=== PATIENT | male | born 1970 | race Caucasian/White ===

== ENCOUNTER 2019-10-15 10:33 | Outpatient (CLI) | payer MEDICAID, SELFPAY ==
--- NOTE | ~2019-10-15 | MR_ITS ---
EXAMINATION: MR knee LT wo con DATE: 10/15/2019 12:09 INDICATION: Left knee pain and swelling. TECHNIQUE: Magnetic resonance imaging (MRI) of the left knee was performed without intravenous contra st. Sequences included axial PD-weighted FS FSE, coronal PD-weighted FSE and PD-weighted FS FSE, sagi ttal PD-weighted FSE, and sagittal T2-weighted FS FSE. COMPARISON: Left knee radiographs 03/29/2019 FINDINGS: Medial compartment: There is a radial tear of posterior horn of medial meniscus. There is partial-thickness cartilage los s of tibial condyle, deep at the anterior articular surface. There are areas of full-thickness cartil age loss of femoral condyle involving the central, medial, lateral, and posterior articular surface w ith mild subchondral edema-like marrow signal intensity. Osteophytes are noted. Lateral compartment: The lateral meniscus is normal. The lateral compartment cartilage is normal. Osteophytes are noted. Patellofemoral compartment: There is deep partial thickness cartilage loss of patellar median ridge and lateral facet. There is f ull-thickness cartilage loss of patellar medial facet with mild subchondral edema-like marrow signal intensity. The trochlear cartilage is normal. Ligaments and tendons: Anterior and posterior cruciate ligaments are normal. Medial collateral ligament and lateral collater al ligament complex are intact. The patellar tendon is normal. Fluid: There is a small knee joint effusion. There is mild prepatellar and superficial infrapatellar bursiti s. There is subcutaneous edema about the knee. IMPRESSION: 1. Severe chondrosis of medial and patellofemoral compartments. 2. Tear of medial meniscus. 3. Small knee joint effusion. Reviewed, dictated and finalized at location A.
== END 2019-10-15 10:34 | disposition home or self-care (01) ==
PROVIDERS: PCP Emergency Medicine; Visit Provider Emergency Medicine
DX: M79.89 Other specified soft tissue disorders (principal); M25.562 Pain in left knee; M22.2X2 Patellofemoral disorders, left knee; S83.242A Other tear of medial meniscus, current injury, left knee, initial encounter; M25.462 Effusion, left knee
CPT/HCPCS: 73721

== ENCOUNTER 2021-12-24 14:37 | Emergency (ER) | payer OTHER, SELFPAY ==
[2021-12-24 14:44] VITALS: BP 144/96; PULSE 82; RESP 16; TEMP 35.9; O2SAT 98
--- NOTE | 2021-12-24 14:45 | ED.EXTPRO ---
HPI - Extremity Problem General Chief complaint: Extremity Problem,Nontraumatic Stated complaint: diabetic edema right leg Time Seen by Provider: 12/24/21 14:57 Source: patient and RN notes reviewed Mode of arrival: ambulatory Limitations: no limitations History of Present Illness HPI Narrative: 51-year-old male with history of diabetes presents concern for bilateral lower leg edema, new onset approximately-1 week ago. He reports his right lower leg is more swollen, red, tender. He reports he has been wearing compression stockings during the day which is helpful. Reports edema worsens throughout the day. He denies shortness of breath or chest pain MD Complaint: extremity swelling Related Data Home Medications Medication Instructions Recorded Confirmed atorvastatin 20 mg tablet 20 mg PO DAILY 12/24/21 12/24/21 dulaglutide 0.75 mg/0.5 mL 0.75 mg subcut WEEKLY 12/24/21 12/24/21 subcutaneous pen injector (Trulicity) empagliflozin 25 mg tablet 25 mg PO DAILY 12/24/21 12/24/21 (Jardiance) insulin glargine 100 unit/mL (3 20 unit subcut BID 12/24/21 12/24/21 mL) subcutaneous pen (Basaglar KwikPen U-100 Insulin) metformin 500 mg tablet,extended 1,000 mg PO BID 12/24/21 12/24/21 release 24 hr tadalafil 5 mg tablet 5 mg PO DAILY 12/24/21 12/24/21 Allergies Allergy/AdvReac Type Severity Reaction Status Date / Time amoxicillin Allergy Unknown rash Verified 12/24/21 14:56 minocycline Allergy Unknown swelling Verified 12/24/21 14:56 Penicillins Allergy Unknown Urticaria Verified 12/24/21 14:56 Review of Systems Review of Systems: CONSTITUTIONAL: Denies malaise, chills, sweats, or fever. CARDIOVASCULAR: Denies chest pain, palpitations. Reports bilateral lower extremity edema. RESPIRATORY: Denies cough or dyspnea. SKIN: Denies rash or itching, bruising, redness, swelling. MUSCULOSKELETAL: Reports redness, swelling, warmth, tenderness to the right lower leg NEUROLOGIC: Denies numbness, weakness All systems reviewed & are unremarkable except as noted in HPI and below PMFSH Social History Social History Smoking status: Never smoker Alcohol intake: current Comments At time of signature, agree with nursing past medical, surgical, social and family history. There is no relevant family history pertinent to the presenting complaint Exam Narrative: GENERAL: Well-appearing, well-nourished, and in no acute distress. HEAD: Normocephalic, atraumatic. EYES: PERRLA, sclera clear ENT: Nares clear. Mucous membranes moist. NECK: Supple. CHEST: No respiratory distress. Clear to auscultation. No bony deformities, no asymmetry. Speaks in full sentences. HEART: Regular rate and rhythm. No murmur heard. Normal peripheral pulses. EXTREMITIES: Grossly Normal range of motion., Grossly normal strength and sensation. Bilateral lower extremity nonpitting edema, left calf measurement 46 cm, right calf measurement 52 cm. SKIN: Warm, dry, no visible rash. Right calf erythematous, warm, tight, mildly tender to touch NEURO: Alert and oriented x3. PSYCH: Normal mood and affect Course Course Emergency Course: Patient is aware of, understands and agrees to be seen in the emergency department. Patient is stable for transfer via private vehicle and agrees to proceed directly to the emergency department. Portions of this record may have been created with voice recognition software Level of Care: Express Care Visit Vital Signs Vital signs: Vital Signs Temperature 96.7 F L 12/24/21 14:44 Pulse Rate 82 12/24/21 14:44 Respiratory Rate 16 12/24/21 14:44 Blood Pressure 144/96 H 12/24/21 14:44 Pulse Oximetry 98 12/24/21 14:44 Oxygen Delivery Room Air 12/24/21 14:44 Temperature 96.7 F L 12/24/21 14:44 Pulse Rate 82 12/24/21 14:44 Respiratory Rate 16 12/24/21 14:44 Blood Pressure 144/96 H 12/24/21 14:44 Pulse Oximetry 98 12/24/21 14:44 Oxygen Delivery Room Air 12/24/21 14:44 Reviewed. Wang
== END 2021-12-24 15:20 | disposition short-term general hospital (02) ==
PROVIDERS: Emergency Provider Nurse Practitioner; PCP Emergency Medicine
DX: R60.0 Localized edema (principal); E11.9 Type 2 diabetes mellitus without complications
CPT/HCPCS: 99212; G0463

== ENCOUNTER 2021-12-27 16:10 | Outpatient (CLI) | payer OTHER, SELFPAY ==
--- NOTE | ~2021-12-27 | US_ITS ---
US venous doppler LE RT DATE: 12/27/2021 17:01 INDICATION: Right leg swelling, right calf pain TECHNIQUE: Real-time and color flow imaging and Doppler analysis of the veins of the right lower extr emity COMPARISON: None FINDINGS: The right greater saphenous vein is patent. There is spontaneous and phasic flow and normal augmentation and color flow signal and normal compression of the deep veins of the right lower extre mity. IMPRESSION: No evidence of deep venous thrombosis of the right leg Reviewed, dictated and finalized at Location A. Reviewed, dictated and finalized at location A.
== END 2021-12-27 16:11 | disposition home or self-care (01) ==
PROVIDERS: PCP Emergency Medicine; Visit Provider Emergency Medicine
DX: M79.89 Other specified soft tissue disorders (principal); M79.661 Pain in right lower leg
CPT/HCPCS: 93971

== ENCOUNTER 2023-12-19 07:24 | Inpatient (IN) | payer BC, SELFPAY ==
[2023-12-19] VITALS (15 sets, daily range): BP systolic 107–127; BP diastolic 73–84; PULSE 80–106; RESP 15–25; TEMP 36.3–38.7; O2SAT 93–100
--- NOTE | ~2023-12-19 | NM_ITS ---
EXAMINATION: NM renal flow and function DATE: 12/21/2023 12:17 INDICATION: Acute kidney injury. TECHNIQUE: 7.7 mCi Tc-99m MAG3 was administered IV. The patient was scanned in the supine position. A posterior abdominal radionuclide angiogram was obtained. A subsequent time course of static images of the kidneys, ureters, and bladder was obtained. COMPARISON: CT abdomen and pelvis 12/19/2023 FINDINGS: The posterior abdominal radionuclide angiogram and sequential static images show normal siz e, position, and morphology of the kidneys. Peak renal parenchymal uptake was >>20 min in right kidne y and >>20 min in left kidney (normal peak 3-5 minutes). The relative early renal uptake was 46% on the right and 54% on the left (<40% is abnormal). No abnormalities of the ureters or bladder are see n. T1/2 for clearance of activity from the right kidney and proximal collecting system was too long to m easure. T1/2 for clearance of activity from the left kidney and proximal collecting system was too long to me asure. IMPRESSION: 1. Symmetric kidney function. 2. Delayed contrast uptake and clearance from the kidneys, consistent with decreased renal function. Reviewed, dictated and finalized at location A. IMPRESSION: 1. Symmetric kidney function. 2. Delayed contrast uptake and clearance from the kidneys, consistent with dec reased renal function.
--- NOTE | ~2023-12-19 | US_ITS ---
EXAMINATION: US renal BI DATE: 12/21/2023 08:44 INDICATION: Acute renal insufficiency TECHNIQUE: Multiple ultrasound grayscale images of the kidneys were obtained. COMPARISON: None. FINDINGS: The right kidney measures 15.1 x 8.8 x 7.5 cm. The left kidney measures 13.8 x 6.7 x 6.2 cm. The kidn eys demonstrate normal echogenicity. 9 mm anechoic cyst with corresponding low-attenuation on prior C T at the lateral mid left kidney. There is no hydronephrosis in either kidney. No stones identified. The bladder is normal. IMPRESSION: 1. 9 mm left renal cyst. Otherwise normal kidneys with no hydronephrosis. Reviewed, dictated and finalized at location B.
--- NOTE | ~2023-12-19 | XR_ITS ---
Portable chest x-ray Comparison: 12/20/2023 Clinical History: Shortness of breath Findings: Right-sided central venous line is unchanged. Lungs are clear, without focal consolidation or pleural effusion. Cardiomediastinal silhouette is stable. Bones and soft tissues are unremarkabl e. Impression: Clear lungs. Stable support line. Reviewed, dictated and finalized at location . Impression: Clear lungs. Stable support line.
--- NOTE | ~2023-12-19 | CT_ITS ---
EXAMINATION: CT abdomen pelvis wo con DATE: 12/19/2023 08:55 INDICATION: Renal failure. Urinary tract infection. TECHNIQUE: Computed tomography (CT) of the abdomen and pelvis was performed without intravenous contr ast. Automated exposure control and iterative reconstruction technique were employed. The dose-length product was 1245.76 mGy-cm. COMPARISON: None. FINDINGS: The visualized portions of the lung bases demonstrate mild atelectasis. No pleural effusion . The heart size is normal. There are coronary artery calcifications. There is a small pericardial ef fusion. There are calcifications in the aortic valve. There is a catheter tip in right atrium. There is diffuse hepatic steatosis. There are changes of cholecystectomy. There is moderate splenomegaly me asuring 17.0 cm. The pancreas, adrenal glands, and right kidney are normal. There is a 16 mm cyst in left kidney. There is no urolithiasis. The prostate is mildly enlarged. There are bilateral inguinal hernias containing fat. There are no dilated loops of bowel. The appendix is normal. There is a small volume of ascites. There is edema of the intra-abdominal fat. In the proximal anterior left thigh, t here is a 8.4 x 7.3 cm mass with small calcifications. There is moderate lumbar spondylosis. IMPRESSION: 1. 8.4 cm mass in left thigh suspicious for malignancy. Ultrasound-guided core needle biopsy is recom mended. 2. Moderate splenomegaly. 3. Small volume of ascites. 4. Diffuse hepatic steatosis. 5. Small pericardial effusion. Reviewed, dictated and finalized at location A. IMPRESSION: 1. 8.4 cm mass in left thigh suspicious for malignancy. Ultrasound-guided core needle biopsy is recommended. 2. Moderate splenomegaly. 3. Small volume of ascites. 4. Diffuse hepatic steatosis. 5. Small pericardial effusion.
--- NOTE | ~2023-12-19 | XR_ITS ---
EXAMINATION: XR chest 1V portable DATE: 12/19/2023 08:43 INDICATION: Weakness. Dizziness. Fatigue. TECHNIQUE: A single frontal view of the chest was obtained. COMPARISON: Chest 2 views 06/04/2016 FINDINGS: There is chronic mild elevation of right hemidiaphragm. No pneumonia, pleural effusion, or pneumothorax. The heart size is normal. There is a right subclavian port with tip in right atrium. Th ere is an old healed left rib fracture. IMPRESSION: 1. No acute cardiopulmonary disease. Reviewed, dictated and finalized at location A.
--- NOTE | ~2023-12-19 | XR_ITS ---
EXAMINATION: XR chest 1V portable DATE: 12/20/2023 05:34 INDICATION: Acute kidney injury. TECHNIQUE: A single frontal view of the chest was obtained. COMPARISON: Chest single view 12/19/2023 FINDINGS: The patient is rotated to his left. There is no pneumonia, pleural effusion, or pneumothora x. The heart size is normal. There are old healed left rib fractures. There is a right subclavian por t with tip in proximal right atrium. IMPRESSION: 1. No acute cardiopulmonary disease. Reviewed, dictated and finalized at location E.
[2023-12-19 08:05] LABS: Basophils Absolute Auto 0.1 K/mm3 (0.0-0.1); Basophils Percent Auto 0.6 % (0.2-1.2); Eosinophils Absolute Auto 0.2 K/mm3 (0-0.3); Eosinophils Percent Auto 1.3 % (0-4.4); Hematocrit 27.5 % (42.0-52.0); Hemoglobin 9.3 g/dL (14.0-18.0); Immature Granulocyte Absolute 0.28 K/mm3 (0.00-0.031); Lymphocytes Absolute Auto 0.86 K/mm3 (0.9-3.2); Mean Corpuscular HGB Conc 33.8 g/dl (32-36); Mean Corpuscular Hemoglobin 28.6 pg (26-34); Mean Corpuscular Volume 84.6 fl (80-100); Mean Platelet Volume 10.3 fl (7.4-10.4); Monocytes Absolute Auto 0.6 K/mm3 (0.1-0.6); Neutrophils Absolute Auto 12.3 K/mm3 (1.3-6.7); Neutrophils Percent Auto 86.1 % (45.5-73.1); Platelet Count Result 82 k/mm3 (150-375); Red Blood Count 3.25 M/mm3 (4.6-6.20); Red Cell Distribution Width 15.6 % (11.5-14.5); White Blood Count 14.3 K/mm3 (4.5-10.0)
[2023-12-19 08:13] LABS: Alanine Aminotransferase 38 U/L (6-50); Albumin Level 3.2 g/dL (3.5-5.1); Alkaline Phosphatase 293 U/L (38-126); Anion Gap 10 mmol/L (4-12); Aspartate Amino Transferase 34 U/L (17-59); Bilirubin,Total 1.1 mg/dL (0.2-1.3); Blood Urea Nitrogen 41 mg/dL (9-20); Calcium 7.6 mg/dL (8.4-10.2); Carbon Dioxide 19 mmol/L (22-30); Chloride 99 mmol/L (98-107); Estimated CRCL calculation 33 ml/min; Estimated Glomerular Filt Rate 21; Glucose 321 mg/dL (65-110); Lipase 161 U/L (23-300); Potassium 3.9 mmol/L (3.4-5.0); Sodium 128 mmol/L (137-145)
[2023-12-19 08:24] LABS: Appearance Urine Cloudy (Clear); Bacteria Urine None Seen /hpf; Bilirubin Urine Negative (Negative); Blood Urine 2+ (Negative); Color Urine Yellow (Yellow); Glucose Urine UA 2+ mg/dL (Negative); Hyaline Casts Urine Present /lpf; Ketones Urine Trace mg/dL (Negative); Leukocyte Esterase Ur Negative LEU/UL (Negative); Need Manual Microscopic Reviewed; Nitrate Urine Negative (Negative); Non Pathogenic Casts >20; Protein Urine 4+ mg/dL (Negative); Specific Grav Ur 1.019 (1.001-1.035); Squamous Epithelial Cell Urine Occasional /hpf (Few); Urobilinogen Urine 0.2 mg/dL (<2.0); WBC Urine 21-50 /hpf (0-3); pH Urine 5.5 (5.0-9.0)
[2023-12-19 08:25] LABS: Add Urine Microscopic? YES
[2023-12-19] MEDS: SODIUM CHLORIDE 0.9% IV 1,000 ML 999 ML IV CONT ×3 (08:29→10:23)
[2023-12-19 08:48] LABS: Lactic Acid Reflex 0.9 mmol/L (0.7-2.0); Magnesium 1.5 mg/dL (1.6-2.3)
[2023-12-19 09:00] LABS: Troponin I 0.018 ng/mL (0.000-0.034)
--- NOTE | 2023-12-19 10:05 | ED.GENADULT ---
HPI - General Adult General Chief complaint: Nausea/Vomiting/Diarrhea Stated complaint: nausea & vomiting Time Seen by Provider: 12/19/23 08:17 History of Present Illness HPI narrative: Patient 53-year-old gentleman who presents emergency department with chief complaint of nausea vomiting. Patient reports he has a history of metastatic skin cancer and reports that he has been having nausea and some weight loss the patient reports that he was admitted at [facility] after he was having nausea vomiting and fever the patient reports that he has been discharged home is taking Zofran and levothyroxine now. The patient reports that he has still been feeling lightheaded and not feeling well and decided to come into the emergency department. Related Data Home Medications Medication Instructions Recorded Confirmed atorvastatin 20 mg tablet 20 mg PO DAILY 12/24/21 12/24/21 dulaglutide 0.75 mg/0.5 mL 0.75 mg subcut WEEKLY 12/24/21 12/24/21 subcutaneous pen injector (Trulicity) empagliflozin 25 mg tablet 25 mg PO DAILY 12/24/21 12/24/21 (Jardiance) insulin glargine 100 unit/mL (3 20 unit subcut BID 12/24/21 12/24/21 mL) subcutaneous pen (Basaglar KwikPen U-100 Insulin) metformin 500 mg tablet,extended 1,000 mg PO BID 12/24/21 12/24/21 release 24 hr tadalafil 5 mg tablet 5 mg PO DAILY 12/24/21 12/24/21 Allergies Allergy/AdvReac Type Severity Reaction Status Date / Time amoxicillin Allergy Unknown rash Verified 12/19/23 07:51 minocycline Allergy Unknown swelling Verified 12/19/23 07:51 Penicillins Allergy Unknown Urticaria Verified 12/19/23 07:51 Review of Systems Review of Systems: A 10 system review of systems was completed on the patient and is negative except for what is stated in the HPI. Nursing and ancillary documentation was reviewed. [facility] Social History Social History Smoking status: Never smoker Alcohol intake: current Exam Narrative: GENERAL: Well-appearing, well-nourished, and in no acute distress. HEAD: Normocephalic, atraumatic. EYES: PERRLA and EOMI. ENT: Nares clear, no rhinorrhea or epistaxis. Mucous membranes moist. NECK: Supple. CHEST: Clear to auscultation. No respiratory distress. HEART: Regular rate and rhythm. No murmur heard. Normal peripheral pulses. ABDOMEN: Soft, nontender, nondistended, normal active bowel sounds. EXTREMITIES: Normal range of motion. No edema. SKIN: Warm, dry, no rash. NEURO: No focal deficits. Alert and oriented x3. PSYCH: Normal mood and affect. Course Vital Signs Vital signs: Vital Signs Temperature 37.4 C 12/19/23 07:23 Pulse Rate 105 H 12/19/23 07:23 Respiratory Rate 19 12/19/23 07:23 Blood Pressure 115/84 12/19/23 07:23 Pulse Oximetry 95 12/19/23 07:23 Oxygen Delivery Room Air 12/19/23 07:23 Temperature 37.4 C 12/19/23 07:23 Pulse Rate 91 12/19/23 10:23 Respiratory Rate 16 12/19/23 10:23 Blood Pressure 119/73 12/19/23 10:23 Pulse Oximetry 96 12/19/23 10:23 Oxygen Delivery Room Air 12/19/23 07:23 Medical Decision Making [facility] Narrative Medical decision making narrative: Differential diagnosis includes electrolyte abnormality, acute kidney failure, UTI, sepsis Laboratory studies were obtained on the patient showed a white count of 14.3 electrolytes showed a BUN of 41 and a creatinine of 3.1 glucose was 321 lactate was 0.9 magnesium was 1.5 troponin 0.018 lipase was 161 procalcitonin is 1.0 urinalysis showed trace ketones 2+ glucose 4+ protein 11-20 RBCs and 21-50 white blood cells Chest x-ray showed no acute abnormality CT scan of the abdomen pelvis showed IMPRESSION: 1. 8.4 cm mass in left thigh suspicious for malignancy. Ultrasound-guided core needle biopsy is recommended. 2. Moderate splenomegaly. 3. Small volume of ascites. 4. Diffuse hepatic steatosis. 5. Small pericardial effusion The case was discus
[2023-12-19] MEDS: MAGNESIUM SULF 2 GM/WATER 50ML 2 GM/50 ML BAG IVPB (10:33)
[2023-12-19 12:39] LABS: Anion Gap 4 mmol/L (4-12); Blood Urea Nitrogen 40 mg/dL (9-20); Carbon Dioxide 23 mmol/L (22-30); Chloride 103 mmol/L (98-107); Estimated CRCL calculation 31 ml/min; Estimated Glomerular Filt Rate 20; Glucose 271 mg/dL (65-110); Potassium 3.7 mmol/L (3.4-5.0); Sodium 130 mmol/L (137-145)
--- NOTE | 2023-12-19 14:06 | ADMGEN ---
This patient, Zeke Latif, was admitted to [facility] Surg Room 307-01. Patient/family oriented to hospital policies and general routines including ID bracelet, bed and alarms, visiting hours, pain management, procedures, bathroom and other care routines, personal items, smoking policy, room service/diet, and visiting hours. Information on how to activate the Rapid Response Team has been discussed. Patient/Family are encouraged to report perceived risks to care and to ask questions if they do not understand what they are told or what they should do.
[2023-12-19] MEDS: CENTRAL LINE FLUSH 10 ML IV PUSH ×2 (14:26→22:11)
[2023-12-19] MEDS: SODIUM CHLORIDE 0.9% IV 1,000 ML 125 ML IV CONT (14:26)
--- NOTE | 2023-12-19 16:56 | PM.IMHP ---
H&P: HPI History of Present Illness Date/Time: 12/19/23 16:56 Chief Complaint: nausea and vomiting and dizziness Narrative: 53 years old male know history of skin cancer and DM Pt has been on chemotherapy treatments for skin cancer his doctors are in [facility]. pt last treatment was on sunday Pt has not been well since nausea vomiting and urinary frequency. Had to come in today because of dizziness episode at home. pt states he has been on mounjaro for weight loss and DM control, and had to come off it because it of the side effects. pt refusing his dinner today because of nauseated feeling. ct scan shows - 1. 8.4 cm mass in left thigh suspicious for malignancy. Ultrasound-guided core needle biopsy is recommended. 2. Moderate splenomegaly. 3. Small volume of ascites. 4. Diffuse hepatic steatosis. 5. Small pericardial effusion. cxr is negative wcc is elevated UA is positive UC and bc are pending creat is high mg is low and potassium is low Review of Systems Review of Systems: nausea vomiting and urinary frequency and dizziness PMFSH Social History Social History Smoking status: Never smoker Alcohol intake: former Substance use: never Do You Feel Safe in your Home?: Yes Lack of Transportation: No Lack of Food: Never True Current Housing: I Have Housing Concerned About Future Housing: No Difficulty Paying Gas/Electric Bills: No Difficulty Paying for Meds: No Currently Unemployed: No Education: Trade/Vocational Certificate Difficulty w/ Childcare or Family Care: No Spiritual care concerns: No Meds Home Medications and Allergies Home Medications Medication Instructions Recorded Confirmed Type atorvastatin 20 mg tablet 20 mg PO DAILY 12/24/21 12/19/23 History metformin 500 mg tablet,extended 1,000 mg PO BID 12/24/21 12/19/23 History release 24 hr tadalafil 5 mg tablet 20 mg PO DAILY 12/24/21 12/19/23 History levothyroxine 25 mcg tablet 25 mcg DAILY 12/19/23 12/19/23 History ondansetron 8 mg disintegrating 8 mg Q8H PRN Nausea And Vomiting 12/19/23 12/19/23 History tablet Allergies Allergy/AdvReac Type Severity Reaction Status Date / Time amoxicillin Allergy Unknown rash Verified 12/19/23 07:51 minocycline Allergy Unknown swelling Verified 12/19/23 07:51 Penicillins Allergy Unknown Urticaria Verified 12/19/23 07:51 vancomycin Allergy Unknown Rash Verified 12/19/23 13:58 Vital Signs Vital Signs - 24 hr 12/19/23 07:23 12/19/23 07:49 12/19/23 07:50 Temperature 37.4 C Pulse Rate 105 H 98 106 H Respiratory Rate 19 Blood Pressure 115/84 107/75 127/82 Pulse Oximetry 95 Oxygen Delivery Room Air 12/19/23 10:23 12/19/23 07:30 12/19/23 07:33 Temperature Pulse Rate 91 105 H 104 H Respiratory Rate 16 23 H 18 Blood Pressure 119/73 115/84 123/75 Pulse Oximetry 96 93 96 Oxygen Delivery 12/19/23 07:49 12/19/23 07:51 12/19/23 08:01 Temperature Pulse Rate 98 105 H 101 H Respiratory Rate 24 H 21 H 25 H Blood Pressure 107/75 127/82 111/78 Pulse Oximetry 97 95 95 Oxygen Delivery 12/19/23 10:22 12/19/23 12:30 12/19/23 14:00 Temperature 36.9 C Pulse Rate 89 80 86 Respiratory Rate 17 15 15 Blood Pressure 119/73 125/80 127/82 Pulse Oximetry 97 99 100 Oxygen Delivery 12/19/23 14:52 12/19/23 16:03 Temperature Pulse Rate 97 Respiratory Rate Blood Pressure Pulse Oximetry Oxygen Delivery Room Air Exam Const: General: in distress and other (tired sweaty weak pale ) Nutritional Appearance: overweight Orientation/consciousness: oriented to person HENMT: Head: normal to inspection Resp: Effort & Inspection: no respiratory distress Auscultation: no rhonchi and no wheezes Cardio: Rate: regular rate Rhythm: regular rhythm GI: Inspection: normal to inspection GI Palp: No abdominal tenderness, No Guarding due to palpation present (GI) and
[2023-12-19] MEDS: ACETAMINOPHEN 325 MG TABLET 650 MG PO (17:23)
[2023-12-19] MEDS: POTASSIUM CHLORIDE INJ 40 MEQ in SODIUM CHLORIDE 0.9% IV 500 ML 130 MEQ IVPB (17:30)
[2023-12-19 20:51] LABS: Hemoglobin A1C 8.9 % (<5.7)
[2023-12-19 21:25] LABS: Glucose Point of Care 192 mg/dl (65-105)
[2023-12-19] MEDS: SODIUM CHLORIDE 0.9% IV 1,000 ML 150 ML IV CONT (22:07)
[2023-12-19] MEDS: MAGNESIUM OXIDE 200 MG TABLET PO (22:07)
[2023-12-20] VITALS (14 sets, daily range): BP systolic 99–128; BP diastolic 55–85; PULSE 90–103; RESP 16–18; TEMP 37.3–37.9; O2SAT 96–100
[2023-12-20] MEDS: SODIUM CHLORIDE 0.9% IV 1,000 ML 150 ML IV CONT ×2 (03:15→10:43)
[2023-12-20 05:45] LABS: Creatinine Urine 89.5 mg/dL
[2023-12-20] MEDS: LEVOTHYROXINE SODIUM 25 MCG TABLET BY MOUTH (05:46)
[2023-12-20 05:48] LABS: Sodium Urine Random 68 meq/L
[2023-12-20 05:51] LABS: Eosinophil Urine None Seen % (None Seen); Total Protein Urine Random > 600 mg/dL; Ur Ttl Prot Creatinine Ratio > 6.70 mg/mg (0-0.20); Urine Eos QC 2nd Tech Confirmed
[2023-12-20 05:59] LABS: Urea Random Urine 330 MG/DL
[2023-12-20] MEDS: CENTRAL LINE FLUSH 10 ML IV PUSH ×3 (05:59→21:52)
[2023-12-20] MEDS: diphenhydrAMINE HCl CAP 25 MG CAPSULE PO (05:59)
[2023-12-20 06:09] LABS: Basophils Absolute Auto 0.1 K/mm3 (0.0-0.1); Basophils Percent Auto 0.6 % (0.2-1.2); Eosinophils Absolute Auto 0.5 K/mm3 (0-0.3); Eosinophils Percent Auto 3.8 % (0-4.4); Hematocrit 23.9 % (42.0-52.0); Hemoglobin 8.1 g/dL (14.0-18.0); Immature Granulocyte Absolute 0.12 K/mm3 (0.00-0.031); Immature Granulocyte Percent A 0.9 % (0-0.5); Immature Platelet Fraction Pct 3.3 % (0.9-11.2); Lymphocytes Absolute Auto 1.46 K/mm3 (0.9-3.2); Lymphocytes Percent Auto 10.8 % (18.3-44.2); Mean Corpuscular HGB Conc 33.9 g/dl (32-36); Mean Corpuscular Hemoglobin 28.5 pg (26-34); Mean Corpuscular Volume 84.2 fl (80-100); Mean Platelet Volume 10.5 fl (7.4-10.4); Monocytes Absolute Auto 0.4 K/mm3 (0.1-0.6); Monocytes Percent Auto 3.2 % (2.6-8.5); Neutrophils Absolute Auto 10.9 K/mm3 (1.3-6.7); Neutrophils Percent Auto 80.7 % (45.5-73.1); Platelet Count Result 73 k/mm3 (150-375); Red Blood Count 2.84 M/mm3 (4.6-6.20); Red Cell Distribution Width 15.7 % (11.5-14.5); White Blood Count 13.6 K/mm3 (4.5-10.0)
[2023-12-20 06:17] LABS: Alanine Aminotransferase 43 U/L (6-50); Albumin Level 2.6 g/dL (3.5-5.1); Alkaline Phosphatase 229 U/L (38-126); Anion Gap 6 mmol/L (4-12); Aspartate Amino Transferase 47 U/L (17-59); Bilirubin,Total 0.7 mg/dL (0.2-1.3); Blood Urea Nitrogen 45 mg/dL (9-20); Calcium 6.8 mg/dL (8.4-10.2); Carbon Dioxide 18 mmol/L (22-30); Chloride 106 mmol/L (98-107); Creatine Kinase 32 U/L (55-170); Estimated CRCL calculation 23 ml/min; Estimated Glomerular Filt Rate 14; Glucose 162 mg/dL (65-110); Magnesium 1.8 mg/dL (1.6-2.3); Phosphorus 2.6 mg/dL (2.5-4.5); Potassium 3.8 mmol/L (3.4-5.0); Sodium 130 mmol/L (137-145)
[2023-12-20 07:49] LABS: Glucose Point of Care 148 mg/dl (65-105)
[2023-12-20 09:16] LABS: Free T4 Free Thyroxine Reflex 0.74 ng/dL (0.78-2.19)
[2023-12-20] MEDS: ATORVASTATIN 20 MG TABLET PO (09:18)
[2023-12-20] MEDS: MAGNESIUM OXIDE 200 MG TABLET PO ×2 (09:20→20:36)
[2023-12-20 11:37] LABS: Glucose Point of Care 239 mg/dl (65-105)
[2023-12-20] MEDS: INSULIN ASPART (*BKC) 100 UNITS/ML SUB-Q ×2 (11:45→17:04)
--- NOTE | 2023-12-20 12:39 | PM.IMPN ---
Progress Note: A&P Assessment and Plan (1) Acute UTI: Code(s): N39.0 - Urinary tract infection, site not specified Status: Acute Assessment and Plan: await full cultures UC and BC treat with iv rocephin (2) Acute kidney injury: Code(s): N17.9 - Acute kidney failure, unspecified Status: Acute Assessment and Plan: hydrate with fluids consult nephrology for SAMANTHA 12/19: rash present, possible allergic nephritis? Initiate Claritin daily and p.r.n. Benadryl (3) Hypomagnesemia: Code(s): E83.42 - Hypomagnesemia Status: Acute Assessment and Plan: replace with Mg watch levels (4) Acute hypokalemia: Code(s): E87.6 - Hypokalemia Status: Acute Assessment and Plan: replace with K rider watch levels 12/19: stable, 3.8 on repeat (5) Hyponatremia: Code(s): E87.1 - Hypo-osmolality and hyponatremia Status: Acute Assessment and Plan: ns ordered watch sodium levels consult nephrology 12/19: IV fluids discontinued, afternoon sodium 127, nephrology on board (6) Diabetes: Code(s): E11.9 - Type 2 diabetes mellitus without complications Status: Acute Assessment and Plan: hemoglobin A1c 8.9 fingerstick glucose before meals and at bedtime, sliding scale insulin ordered, metformin held due to SAMANTHA Plan patient is receiving treatment for metastatic melanoma with known spread to left groin/thigh undergoing treatment at [facility] recent hospitalization in [place] with similar presentation and laboratory abnormalities, 11 day admission per patient report Time Spent With Patient Time with patient: Greater than 35 minutes Subjective Date/time seen: 12/20/23 12:39 Interval history: Patient with decreased urine output despite IV fluid rehydration noted worsened renal function since admission and intermittent fevers. Patient also has significant rash across face chest scattered on extremities and most of the back. This is a mostly confluent Macular rash, partially blanchable and pruritic. This does not feel raised like scarlatina. Patient is on Rocephin for apparent UTI, cultures pending. Review of Systems Review of Systems: nausea vomiting and urinary frequency and dizziness Exam Narrative: GENERAL: ill-appearing, significant erythematous rash across face trunk and scattered on extremities HEAD: Normocephalic, atraumatic. ENT:? Mucous membranes moist. CHEST: Clear to auscultation.? No respiratory distress. subjective dyspnea HEART: Regular rate and rhythm. ? Normal peripheral pulses. ABDOMEN: Soft, nontender, nondistended. EXTREMITIES: Normal range of motion. No peripheral edema. left lower leg surgical dressing in place SKIN: warm to the touch, rash as described above NEURO: Alert and oriented x3. no gross neurologic deficit noted PSYCH: Normal mood and affect Objective Data Vital Signs Vital Signs: Vital Signs - 24 hr 12/19/23 14:00 12/19/23 14:52 12/19/23 16:03 Temperature 36.9 C Pulse Rate 86 97 Respiratory Rate 15 Blood Pressure 127/82 Pulse Oximetry 100 Oxygen Delivery Room Air 12/19/23 17:23 12/19/23 21:15 12/19/23 20:00 Temperature 38.7 C H 36.3 C L Pulse Rate 90 87 Respiratory Rate 16 Blood Pressure 123/80 Pulse Oximetry 98 Oxygen Delivery 12/20/23 00:00 12/20/23 05:30 12/20/23 04:00 Temperature 37.3 C Pulse Rate 90 94 95 Respiratory Rate 18 Blood Pressure 128/85 Pulse Oximetry 97 Oxygen Delivery 12/20/23 09:20 12/20/23 08:00 12/20/23 12:00 Temperature Pulse Rate 93 92 Respiratory Rate Blood Pressure Pulse Oximetry Oxygen Delivery Room Air Intake/Output Intake/Output: Intake & Output 12/17/23 12/18/23 12/19/23 12/20/23 23:59 23:59 23:59 23:59 Intake Total 3500 2800 Output Total 600 Balance 3500 2200 Meds/Results Medications: Active Medications Generic Name Dose Rout
[2023-12-20] MEDS: LORATADINE 10 MG TABLET PO (12:50)
--- NOTE | 2023-12-20 13:13 | P.CONNP_ITS ---
Assessment and Plan Assessment and plan (1) Acute kidney injury: Code(s): N17.9 - Acute kidney failure, unspecified Status: Acute Assessment and Plan: * normal renal function/creatinine prior November 2023 hospitalization at [facility] * SAMANTHA/ARF last month during November 2023 hospital stay - records reviewed * admission creatinine 0.92mg/dl * peaked/platueaed at 3.03mg/dl * insult thought to be multifactorial ATN from prerenal factors, contrast exposure, hypotension, and possibly vancomycin * by time of discharge (12/05/23), creatinine was down to 2.55mg/dl * outpatient labs done on 12/14/23 demonstrated at creatinine of 1.45mg/dl * admission creatinine here noted to be 3.3mg/dl; labs today with a creatinine 4.5mg/dl * etiology not clear; several possibilities including: * prerenal factors * relative hypotension * possible infection (UTI?) * drug reaction/AIN (chemotherapy?) * other(?) * evaluation to date noted: * Abd/Pelvis CT without obstruction/hydro * renal ultrasound pending * urine electrolytes non-prerenal * urine eosinophils negative; no peripheral eosinophilia (but ++ rash) * nephrotic range proteinuria * CPK okay * continue trial of IVFs for now * follow trend of repeat labs and UOP (2) Hyponatremia: Code(s): E87.1 - Hypo-osmolality and hyponatremia Status: Acute Assessment and Plan: * presumaby secondary to #1 * underlying malignancy maybe playing a role * sodium on 12/14/23 labs was 132mmol/L * follow trend (3) Hypokalemia: Code(s): E87.6 - Hypokalemia Status: Acute Assessment and Plan: * due to GI symptoms (nausea/vomiting) prior to admission * replete cautiously given #1 * follow trend of repeat K+ levels (4) Acute UTI: Code(s): N39.0 - Urinary tract infection, site not specified Status: Acute Assessment and Plan: * admission UA suggestive * follow culture results * on antibiotics (5) Metastatic melanoma: Code(s): C43.9 - Malignant melanoma of skin, unspecified Status: Chronic Assessment and Plan: * follows with Oncology (Dr. Cullen) * on chemotherapy I will continue to follow the patient with you while he remains hospitalized make further recommendations as deemed necessary. Thank for allowing me to participate in the care this patient. History of Present Illness Reason for Consult Consult date: 12/20/23 Reason for consult: acute renal failure Chief Complaint Chief complaint: Acute Kidney Injury/UTI/ Hypomagnesemia History of Present Illness Narrative: The patient is a 53-year-old male with a past medical history as outlined below who presented to [facility] Emergency room with complaints of nausea, vomiting, and increased urinary frequency. The patient has known metastatic melanoma and recently had chemotherapy on 12/14/2023. Since that time, he has had episodes of dizziness at home in association with poor oral intake, nausea, and vomiting. He was not sure if it was the chemotherapy to lead to these GI side effects as he previously had been on mounjaro which may have also been partly responsible as well. Due to the persistence of the symptoms despite conservative therapy, he came to the ER for further assessment. Workup and evaluation in the emergency room demonstrated the patient to be hemodynamically stable but moderately ill. Routine blood test demonstrated a mildly elevated white blood cell count, relative anemia, and a chemistry that was signifi
--- NOTE | 2023-12-20 13:13 | PM.CNNEP ---
Assessment and Plan Assessment and plan (1) Acute kidney injury: Code(s): N17.9 - Acute kidney failure, unspecified Status: Acute Assessment and Plan: normal renal function/creatinine prior November 2023 hospitalization at [facility] SAMANTHA/ARF last month during November 2023 hospital stay - records reviewed admission creatinine 0.92mg/dl peaked/platueaed at 3.03mg/dl insult thought to be multifactorial ATN from prerenal factors, contrast exposure, hypotension, and possibly vancomycin by time of discharge (12/05/23), creatinine was down to 2.55mg/dl outpatient labs done on 12/14/23 demonstrated at creatinine of 1.45mg/dl admission creatinine here noted to be 3.3mg/dl; labs today with a creatinine 4.5mg/dl etiology not clear; several possibilities including: prerenal factors relative hypotension possible infection (UTI?) drug reaction/AIN (chemotherapy?) other(?) evaluation to date noted: Abd/Pelvis CT without obstruction/hydro renal ultrasound pending urine electrolytes non-prerenal urine eosinophils negative; no peripheral eosinophilia (but ++ rash) nephrotic range proteinuria CPK okay continue trial of IVFs for now follow trend of repeat labs and UOP (2) Hyponatremia: Code(s): E87.1 - Hypo-osmolality and hyponatremia Status: Acute Assessment and Plan: presumaby secondary to #1 underlying malignancy maybe playing a role sodium on 12/14/23 labs was 132mmol/L follow trend (3) Hypokalemia: Code(s): E87.6 - Hypokalemia Status: Acute Assessment and Plan: due to GI symptoms (nausea/vomiting) prior to admission replete cautiously given #1 follow trend of repeat K+ levels (4) Acute UTI: Code(s): N39.0 - Urinary tract infection, site not specified Status: Acute Assessment and Plan: admission UA suggestive follow culture results on antibiotics (5) Metastatic melanoma: Code(s): C43.9 - Malignant melanoma of skin, unspecified Status: Chronic Assessment and Plan: follows with Oncology (Dr. Cullen) on chemotherapy I will continue to follow the patient with you while he remains hospitalized make further recommendations as deemed necessary. Thank for allowing me to participate in the care this patient. History of Present Illness Reason for Consult Consult date: 12/20/23 Reason for consult: acute renal failure Chief Complaint Chief complaint: Acute Kidney Injury/UTI/ Hypomagnesemia History of Present Illness Narrative: The patient is a 53-year-old male with a past medical history as outlined below who presented to [facility] Emergency room with complaints of nausea, vomiting, and increased urinary frequency. The patient has known metastatic melanoma and recently had chemotherapy on 12/14/2023. Since that time, he has had episodes of dizziness at home in association with poor oral intake, nausea, and vomiting. He was not sure if it was the chemotherapy to lead to these GI side effects as he previously had been on mounjaro which may have also been partly responsible as well. Due to the persistence of the symptoms despite conservative therapy, he came to the ER for further assessment. Workup and evaluation in the emergency room demonstrated the patient to be hemodynamically stable but moderately ill. Routine blood test demonstrated a mildly elevated white blood cell count, relative anemia, and a chemistry that was significant for mild hyponatremia and hypokalemia as well as hypomagnesemia in association with elevated BUN and creatinine. Given his GI symptoms, he did undergo a CT scan of his abdomen pelvis which was significant for 8.4 cm mass in his left thigh suspicious for malignancy, moderate splenomegaly, diffuse hepatic steatosis, and a small pericardial effusion. His urinalysis was somewhat suggestive of urinary tract infection as well. After appropriate cultures w
[2023-12-20 16:23] LABS: Albumin Level 2.5 g/dL (3.5-5.1); Anion Gap 6 mmol/L (4-12); Blood Urea Nitrogen 50 mg/dL (9-20); Calcium 6.8 mg/dL (8.4-10.2); Carbon Dioxide 17 mmol/L (22-30); Chloride 104 mmol/L (98-107); Estimated CRCL calculation 20 ml/min; Estimated Glomerular Filt Rate 12; Glucose 211 mg/dL (65-110); Potassium 3.9 mmol/L (3.4-5.0); Sodium 127 mmol/L (137-145)
[2023-12-20 16:49] LABS: Glucose Point of Care 207 mg/dl (65-105)
[2023-12-20] MEDS: diphenhydrAMINE HCl CAP 25 MG CAPSULE 50 MG PO (20:36)
[2023-12-20] MEDS: ACETAMINOPHEN 325 MG TABLET 650 MG PO (20:37)
[2023-12-20 21:21] LABS: Glucose Point of Care 166 mg/dl (65-105)
[2023-12-21] VITALS (7 sets, daily range): BP systolic 110–114; BP diastolic 71–75; PULSE 83–118; RESP 16–20; TEMP 36.4–37.3; O2SAT 96–98; BMI 32.5
[2023-12-21] MEDS: LEVOTHYROXINE SODIUM 12.5 MCG TABLET BY MOUTH (05:45)
[2023-12-21] MEDS: LEVOTHYROXINE SODIUM 25 MCG TABLET BY MOUTH (05:45)
[2023-12-21] MEDS: CENTRAL LINE FLUSH 10 ML IV PUSH ×3 (05:46→21:23)
[2023-12-21 06:50] LABS: Hematocrit 24.8 % (42.0-52.0); Hemoglobin 8.6 g/dL (14.0-18.0); Immature Platelet Fraction Pct 3.9 % (0.9-11.2); Mean Corpuscular HGB Conc 34.7 g/dl (32-36); Mean Corpuscular Hemoglobin 28.5 pg (26-34); Mean Corpuscular Volume 82.1 fl (80-100); Mean Platelet Volume 10.7 fl (7.4-10.4); Platelet Count Result 74 k/mm3 (150-375); Red Blood Count 3.02 M/mm3 (4.6-6.20); Red Cell Distribution Width 15.7 % (11.5-14.5); White Blood Count 14.6 K/mm3 (4.5-10.0)
[2023-12-21 07:00] LABS: Alanine Aminotransferase 79 U/L (6-50); Albumin Level 2.5 g/dL (3.5-5.1); Alkaline Phosphatase 304 U/L (38-126); Anion Gap 9 mmol/L (4-12); Aspartate Amino Transferase 86 U/L (17-59); Bilirubin,Total 0.6 mg/dL (0.2-1.3); Blood Urea Nitrogen 54 mg/dL (9-20); Calcium 6.9 mg/dL (8.4-10.2); Carbon Dioxide 16 mmol/L (22-30); Chloride 103 mmol/L (98-107); Estimated CRCL calculation 15 ml/min; Estimated Glomerular Filt Rate 9; Glucose 158 mg/dL (65-110); Magnesium 1.8 mg/dL (1.6-2.3); Phosphorus 2.6 mg/dL (2.5-4.5); Potassium 3.8 mmol/L (3.4-5.0); Sodium 128 mmol/L (137-145)
[2023-12-21 07:18] LABS: Glucose Point of Care 162 mg/dl (65-105)
[2023-12-21 07:25] LABS: Band Neutrophils Percent 14 % (0-6); Basophils Absolute Manual 0.14 K/mm3 (0.0-0.1); Basophils Percent Manual 1 % (0-1); Eosinophils Absolute Manual 0.58 K/mm3 (0.02-0.50); Eosinophils Percent Manual 4 % (0-4); Lymphocytes Absolute Manual 0.73 K/mm3 (1.1-4.5); Metamyelocytes Percent 4 %; Monocytes Absolute Manual 0.87 K/mm3 (0.1-0.90); Monocytes Percent Manual 6 % (3-9); Neutrophils Absolute Manual 11.68 K/mm3 (1.3-6.7); Neutrophils Percent Manual 66 % (46-73); Platelet Estimate Decreased (Adequate); Schistocytes None Seen; Total Cells Counted 100
[2023-12-21 07:26] LABS: Anisocytosis 1+; Hypochromasia 1+
[2023-12-21] MEDS: MAGNESIUM OXIDE 200 MG TABLET PO ×2 (08:40→21:22)
[2023-12-21] MEDS: ATORVASTATIN 20 MG TABLET PO (08:40)
[2023-12-21] MEDS: LORATADINE 10 MG TABLET PO (08:40)
--- NOTE | 2023-12-21 10:01 | P.PNNP_ITS ---
Progress Note: A&P Assessment and Plan (1) Acute kidney injury: Code(s): N17.9 - Acute kidney failure, unspecified Status: Acute Assessment and Plan: * ongoing deterioration noted * normal renal function/creatinine prior November 2023 hospitalization at [facility] * SAMANTHA/ARF last month during November 2023 hospital stay - records reviewed * admission creatinine 0.92mg/dl * peaked/platueaed at 3.03mg/dl * insult thought to be multifactorial ATN from prerenal factors, contrast exposure, hypotension, and possibly vancomycin * by time of discharge (12/05/23), creatinine was down to 2.55mg/dl * outpatient labs done on 12/14/23 demonstrated at creatinine of 1.45mg/dl * admission creatinine here noted to be 3.3mg/dl * etiology not clear; several possibilities including: * prerenal factors * relative hypotension * possible infection (UTI?) * drug reaction/AIN (chemotherapy?) * other(?) * evaluation to date noted: * Abd/Pelvis CT without obstruction/hydro * renal ultrasound also without obstruction * urine electrolytes non-prerenal * urine eosinophils negative; no peripheral eosinophilia (but ++ rash) * nephrotic range proteinuria * CPK okay * on further review of records, it would seems his SAMANTHA last month and currently seems to follow his cycle of chemotherapy every 21 days, specifically t,he use of nivolumab and ipilimumab * upon further investigation, these medications have been associated with SAMANTHA/ARF for a variety of reasons including acute interstitial nephritis (did he have AIN on his hospitalization at [facility]?) * will order serological evaluation * discussed with RANDI Maya -- will empirically start steroids given worsening rash (and this may help renal function if this is indeed AIN as well) * holding IVFs due to decline in urine output (although eating and drinking better now...) * check renal scan (to assess for ATN) * follow trend of repeat labs and UOP (2) Metabolic acidosis: Code(s): E87.20 - Acidosis, unspecified Status: Acute Assessment and Plan: * likely due to SAMANTHA/ARF * start oral sodium bicarbonate to compensate * follow CO2 levels (3) Anemia: Code(s): D64.9 - Anemia, unspecified Status: Acute Assessment and Plan: * related to SAMANTHA/ARF as well as underlying malignancy * follow trend of H/H * may need to consider ESPERANZA (4) Hyponatremia: Code(s): E87.1 - Hypo-osmolality and hyponatremia Status: Acute Assessment and Plan: * presumaby secondary to #1 * underlying malignancy maybe playing a role * sodium on 12/14/23 labs was 132mmol/L * follow trend (5) Hypokalemia: Code(s): E87.6 - Hypokalemia Status: Acute Assessment and Plan: * better * due to GI symptoms (nausea/vomiting) prior to admission * replete cautiously given #1 * follow trend of repeat K+ levels (6) Acute UTI: Code(s): N39.0 - Urinary tract infection, site not specified Status: Acute Assessment and Plan: * admission UA suggestive * follow culture results - culture so far negative * on antibiotics (7) Metastatic melanoma: Code(s): C43.9 - Malignant melanoma of skin, unspecified Status: Chronic Assessment and Plan: * follows with Oncology (Dr. Cullen) * on chemotherapy Discussed case with RANDI Maya. Long extensive discussion (> than 20 min) with the patient regarding his worsening renal dysfunction. Although he does not hav
--- NOTE | 2023-12-21 10:01 | PM.PNNEP ---
Progress Note: A&P Assessment and Plan (1) Acute kidney injury: Code(s): N17.9 - Acute kidney failure, unspecified Status: Acute Assessment and Plan: ongoing deterioration noted normal renal function/creatinine prior November 2023 hospitalization at [facility] SAMANTHA/ARF last month during November 2023 hospital stay - records reviewed admission creatinine 0.92mg/dl peaked/platueaed at 3.03mg/dl insult thought to be multifactorial ATN from prerenal factors, contrast exposure, hypotension, and possibly vancomycin by time of discharge (12/05/23), creatinine was down to 2.55mg/dl outpatient labs done on 12/14/23 demonstrated at creatinine of 1.45mg/dl admission creatinine here noted to be 3.3mg/dl etiology not clear; several possibilities including: prerenal factors relative hypotension possible infection (UTI?) drug reaction/AIN (chemotherapy?) other(?) evaluation to date noted: Abd/Pelvis CT without obstruction/hydro renal ultrasound also without obstruction urine electrolytes non-prerenal urine eosinophils negative; no peripheral eosinophilia (but ++ rash) nephrotic range proteinuria CPK okay on further review of records, it would seems his SAMANTHA last month and currently seems to follow his cycle of chemotherapy every 21 days, specifically t,he use of nivolumab and ipilimumab upon further investigation, these medications have been associated with SAMANTHA/ARF for a variety of reasons including acute interstitial nephritis (did he have AIN on his hospitalization at [facility]?) will order serological evaluation discussed with RANDI Maya -- will empirically start steroids given worsening rash (and this may help renal function if this is indeed AIN as well) holding IVFs due to decline in urine output (although eating and drinking better now...) check renal scan (to assess for ATN) follow trend of repeat labs and UOP (2) Metabolic acidosis: Code(s): E87.20 - Acidosis, unspecified Status: Acute Assessment and Plan: likely due to SAMANTHA/ARF start oral sodium bicarbonate to compensate follow CO2 levels (3) Anemia: Code(s): D64.9 - Anemia, unspecified Status: Acute Assessment and Plan: related to SAMANTHA/ARF as well as underlying malignancy follow trend of H/H may need to consider ESPERANZA (4) Hyponatremia: Code(s): E87.1 - Hypo-osmolality and hyponatremia Status: Acute Assessment and Plan: presumaby secondary to #1 underlying malignancy maybe playing a role sodium on 12/14/23 labs was 132mmol/L follow trend (5) Hypokalemia: Code(s): E87.6 - Hypokalemia Status: Acute Assessment and Plan: better due to GI symptoms (nausea/vomiting) prior to admission replete cautiously given #1 follow trend of repeat K+ levels (6) Acute UTI: Code(s): N39.0 - Urinary tract infection, site not specified Status: Acute Assessment and Plan: admission UA suggestive follow culture results - culture so far negative on antibiotics (7) Metastatic melanoma: Code(s): C43.9 - Malignant melanoma of skin, unspecified Status: Chronic Assessment and Plan: follows with Oncology (Dr. Cullen) on chemotherapy Discussed case with RANDI Maya. Long extensive discussion (> than 20 min) with the patient regarding his worsening renal dysfunction. Although he does not have any critical electrolyte abnormalities, severe metabolic acidosis, volume overload, or signs /symptoms of uremia, his worsening labs are concerning and he remains at risk for renal replacement therapy/dialysis. Given the possibility that the insult to his kidneys could be related to his chemotherapy, I also discussed with the patient the possibility that he may require renal biopsy as well. He appeared to voice understanding to both of these possibilities and is, of course, hoping that his kidney function will improve
--- NOTE | 2023-12-21 11:04 | PM.IMPN ---
Progress Note: A&P Assessment and Plan (1) Acute UTI: Code(s): N39.0 - Urinary tract infection, site not specified Status: Acute Assessment and Plan: await full cultures UC and BC treat with iv rocephin 12/20: urine culture mixed genital andrea, blood cultures negative growth to date. (2) Acute kidney injury: Code(s): N17.9 - Acute kidney failure, unspecified Status: Acute Assessment and Plan: hydrate with fluids consult nephrology for SAMANTHA 12/19: rash present, possible allergic nephritis? Initiate Claritin daily and p.r.n. 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, initiate steroids and continue to monitor renal function (3) Hypomagnesemia: Code(s): E83.42 - Hypomagnesemia Status: Acute Assessment and Plan: replace with Mg watch levels 12/20: magnesium 1.8 (4) Acute hypokalemia: Code(s): E87.6 - Hypokalemia Status: Acute Assessment and Plan: replace with K rider watch levels 12/19: stable, 3.8 on repeat 12/20: stable, 3.8 on repeat (5) Hyponatremia: Code(s): E87.1 - Hypo-osmolality and hyponatremia Status: Acute Assessment and Plan: ns ordered watch sodium levels consult nephrology 12/19: IV fluids discontinued, afternoon sodium 127, nephrology on board 12/20: sodium 128. Cancel heart healthy diet and change to diabetic diet (6) Diabetes: Code(s): E11.9 - Type 2 diabetes mellitus without complications Status: Acute Assessment and Plan: hemoglobin A1c 8.9 fingerstick glucose before meals and at bedtime, sliding scale insulin ordered, metformin held due to SAMANTHA 12/20: sugar likely to rise due to steroids, continue supplemental insulin Plan 12/19: patient is receiving treatment for metastatic melanoma with known spread to left groin/thigh undergoing treatment at [facility] recent hospitalization in [place] with similar presentation and laboratory abnormalities, 11 day admission per patient report 12/20: 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 Initiating steroids today. 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 Patient had similar presentation last month and admitted for 11 days to [facility]. Liver/Renal function was affected then but more so this time. 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 Rash worse this time. Patient feeling somewhat better this afternoon. IV steroids given with lessened intensity of rash across entire trunk/face and large portions of extremities. Benadryl has not helped itching/rash and only caused excessive sleepiness. Patient did urinate this morning, not yet this afternoon. Renal function worse today, Nephrology monitoring. Review of Systems Review of Systems: nausea vomiting and urinary frequency and dizziness All systems reviewed & are unremarkable except as noted in HPI and below Exam Narrative: GENERAL: ill-appearing, significant erythematous rash across face trunk and scattered on extremities HEAD: Normocephalic, atraumatic. ENT:? Mucous membranes moist. CHEST: Clear to auscultation.? No respiratory distress. HEART: Regular rate and rhythm. ? Normal peripheral pulses. ABDOMEN: Soft, nontender, nondistended. EXTREMITIES: Normal range of motion. No peripheral edema. left lower leg surgical dressing in place SKIN: warm to the touch, rash as described above NEURO: Alert and oriented x3. no gross neurologic deficit noted PSYCH: Normal mood and affect Objective Data Vital Signs Vital Signs: Vital Signs - 24 hr
[2023-12-21] MEDS: methylPREDNISolone SOD SUCC 125 MG VIAL IV PUSH (12:10)
[2023-12-21] MEDS: HYDROCORTISONE 1% 30 GM CREAM 1 APPLIC TOPICAL (12:10)
[2023-12-21] MEDS: SODIUM BICARBONATE TAB 650 MG TABLET PO ×2 (12:10→17:39)
[2023-12-21 12:11] LABS: Glucose Point of Care 156 mg/dl (65-105)
[2023-12-21 17:27] LABS: Glucose Point of Care 283 mg/dl (65-105)
[2023-12-21] MEDS: INSULIN ASPART (*BKC) 100 UNITS/ML SUB-Q (17:41)
[2023-12-21 21:18] LABS: Glucose Point of Care 371 mg/dl (65-105)
[2023-12-21] MEDS: methylPREDNISolone SOD SUCC 40 MG VIAL IV PUSH (21:23)
[2023-12-21] MEDS: INSULIN GLARGINE (*BKC) 100 UNITS/ML 20 UNITS SUB-Q (21:24)
[2023-12-22 05:41] VITALS: BP 122/87; PULSE 87; RESP 16; TEMP 36.1; O2SAT 99
[2023-12-22] MEDS: methylPREDNISolone SOD SUCC 40 MG VIAL IV PUSH ×3 (06:14→23:43)
[2023-12-22] MEDS: LEVOTHYROXINE SODIUM 25 MCG TABLET BY MOUTH (06:16)
[2023-12-22] MEDS: LEVOTHYROXINE SODIUM 12.5 MCG TABLET BY MOUTH (06:16)
[2023-12-22] MEDS: CENTRAL LINE FLUSH 10 ML IV PUSH ×3 (06:17→23:43)
[2023-12-22 06:19] LABS: Hematocrit 23.4 % (42.0-52.0); Hemoglobin 7.8 g/dL (14.0-18.0); Immature Platelet Fraction Pct 4.6 % (0.9-11.2); Mean Corpuscular HGB Conc 33.3 g/dl (32-36); Mean Corpuscular Hemoglobin 28.1 pg (26-34); Mean Corpuscular Volume 84.2 fl (80-100); Mean Platelet Volume 10.9 fl (7.4-10.4); Platelet Count Result 76 k/mm3 (150-375); Red Blood Count 2.78 M/mm3 (4.6-6.20); Red Cell Distribution Width 15.7 % (11.5-14.5); White Blood Count 13.7 K/mm3 (4.5-10.0)
[2023-12-22 06:32] LABS: Alanine Aminotransferase 193 U/L (6-50); Albumin Level 2.6 g/dL (3.5-5.1); Alkaline Phosphatase 396 U/L (38-126); Anion Gap 14 mmol/L (4-12); Aspartate Amino Transferase 164 U/L (17-59); Bilirubin,Total 0.7 mg/dL (0.2-1.3); Blood Urea Nitrogen 70 mg/dL (9-20); Calcium 6.9 mg/dL (8.4-10.2); Carbon Dioxide 13 mmol/L (22-30); Chloride 98 mmol/L (98-107); Estimated CRCL calculation 13 ml/min; Estimated Glomerular Filt Rate 7; Glucose 382 mg/dL (65-110); Potassium 4.1 mmol/L (3.4-5.0); Sodium 125 mmol/L (137-145)
[2023-12-22 06:33] LABS: Magnesium 1.9 mg/dL (1.6-2.3)
[2023-12-22 06:37] LABS: Complement C3 81 mg/dL (88-165)
[2023-12-22 07:14] LABS: Band Neutrophils Percent 15 % (0-6); Lymphocytes Absolute Manual 1.23 K/mm3 (1.1-4.5); Metamyelocytes Percent 1 %; Monocytes Absolute Manual 0.54 K/mm3 (0.1-0.90); Monocytes Percent Manual 4 % (3-9); Neutrophils Absolute Manual 11.78 K/mm3 (1.3-6.7); Neutrophils Percent Manual 71 % (46-73); Platelet Estimate Decreased (Adequate); Total Cells Counted 100
[2023-12-22 07:15] LABS: Anisocytosis 1+; Schistocytes None Seen
[2023-12-22 07:16] LABS: Hepatitis B Surface Antigen Negative (Negative)
[2023-12-22 07:33] LABS: Hepatitis B Surface Anti Res Negative
[2023-12-22 07:57] LABS: Glucose Point of Care 394 mg/dl (65-105)
[2023-12-22 08:01] LABS: Iron 84 ug/dL (49-181)
[2023-12-22 08:10] LABS: Percent Iron Saturation 56 % (20-50)
[2023-12-22] MEDS: INSULIN ASPART (*BKC) 100 UNITS/ML SUB-Q ×4 (08:43→18:10)
[2023-12-22] MEDS: INSULIN GLARGINE (*BKC) 100 UNITS/ML 20 UNITS SUB-Q (08:44)
[2023-12-22] MEDS: ATORVASTATIN 20 MG TABLET PO (08:48)
[2023-12-22] MEDS: LORATADINE 10 MG TABLET PO ×2 (08:49→21:43)
[2023-12-22] MEDS: SODIUM BICARBONATE TAB 650 MG TABLET PO (08:49)
[2023-12-22] MEDS: MAGNESIUM OXIDE 200 MG TABLET PO ×2 (08:49→21:43)
[2023-12-22 09:15] LABS: Folic Acid 5.5 ng/mL (2.76->20); Vitamin B12 > 1000.0 pg/mL (239-931)
[2023-12-22 09:34] LABS: Ferritin > 2000.00 ng/mL (11.1-264)
--- NOTE | 2023-12-22 10:40 | PM.IMPN ---
Progress Note: A&P Assessment and Plan (1) Acute UTI: Code(s): N39.0 - Urinary tract infection, site not specified Status: Acute Assessment and Plan: await full cultures UC and BC treat with iv rocephin 12/20: urine culture mixed genital andrea, blood cultures negative growth to date. 12/21: unlikely to be cause of symptoms but would finish 5-7 days Rocephin due to immune compromise status. (2) Acute kidney injury: Code(s): N17.9 - Acute kidney failure, unspecified Status: Acute Assessment and Plan: hydrate with fluids consult nephrology for SAMANTHA 12/19: rash present, possible allergic nephritis? Initiate Claritin daily and p.r.n. 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 (3) Hyponatremia: Code(s): E87.1 - Hypo-osmolality and hyponatremia Status: Acute Assessment and Plan: ns ordered watch sodium levels consult nephrology 12/19: IV fluids discontinued, afternoon sodium 127, nephrology on board 12/20: sodium 128. Cancel heart healthy diet and change to diabetic diet 12/21: sodium 125 (4) Diabetes: Code(s): E11.9 - Type 2 diabetes mellitus without complications Status: Acute Assessment and Plan: hemoglobin A1c 8.9 fingerstick glucose before meals and at bedtime, sliding scale insulin ordered, metformin held due to SAMANTHA 12/20: sugar likely to rise due to steroids, continue supplemental insulin 12/21: increased insulin due to steroids causing hyperglycemia, not previously on insulin (5) Anemia: Code(s): D64.9 - Anemia, unspecified Status: Acute Assessment and Plan: 12/21: Hemoglobin 9.3 on admit, down to 7.8 on AM labs this morning Heme/Onc consulted Nephrology notified in case epoetin needs ordered, Nephrology requested stool occult blood test Petechia noted on feet/legs, Possible dilutional due to fluid retention/decreased urine output?? B12 elevated, Folate normal, iron normal with high % saturation and elevated ferritin (6) Thrombocytopenia: Code(s): D69.6 - Thrombocytopenia, unspecified Status: Acute Assessment and Plan: 12/21: Platelets low with petechia on legs/feet Heme/Onc consulted, will see on Sunday (7) Metabolic acidosis: Code(s): E87.20 - Acidosis, unspecified Status: Acute Assessment and Plan: 12/21: Carbon dioxide 13, anion gap 14 on AM labs 1 amp bicarb IV and increased oral bicarb to 1300 mg BID Repeat afternoon metabolic panel (8) Acute hypokalemia: Code(s): E87.6 - Hypokalemia Status: Resolved Assessment and Plan: replace with K rider watch levels 12/19: stable, 3.8 on repeat 12/20: stable, 3.8 on repeat 12/21: 4.1, resolved (9) Hypomagnesemia: Code(s): E83.42 - Hypomagnesemia Status: Resolved Assessment and Plan: replace with Mg watch levels 12/20: magnesium 1.8 12/21: magnesium 1.9, resolved Plan 12/19: patient is receiving treatment for metastatic melanoma with known spread to left groin/thigh undergoing treatment at [facility] recent hospitalization in [place] with similar presentation and laboratory abnormalities, 11 day admission per patient report 12/20: 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 Initiating steroids today. Continue to monitor renal function closely 12/21: Heme/Onc will see patient on Sunday due to dropping Hemoglobin and thrombocytopenia. Time Spent With Patient Time with patient: Greater than 35 minutes Subjective Date/time seen: 12/22/23 10:40 Interval history: Rash improving, patient feeling better. Labs show continued worsening of renal function but at a seemingly slower pace of worsening, will recheck metabolic panel this
[2023-12-22 10:45] VITALS: BP 115/76; PULSE 79; RESP 16; TEMP 36; O2SAT 99
[2023-12-22 10:47] VITALS: BP 115/74; PULSE 85; O2SAT 100
[2023-12-22 10:48] VITALS: BP 119/71; PULSE 91; O2SAT 100
[2023-12-22] MEDS: SODIUM BICARBONATE 8.4% 50 MEQ/50 ML SYRINGE IV PUSH (10:59)
[2023-12-22 12:00] LABS: Glucose Point of Care 436 mg/dl (65-105)
--- NOTE | 2023-12-22 13:41 | P.PNNP_ITS ---
Progress Note: A&P Assessment and Plan (1) Acute kidney injury: Code(s): N17.9 - Acute kidney failure, unspecified Status: Acute Assessment and Plan: * ongoing deterioration noted * The rise in the creatinine may be a little bit less than it had been the day before. But still significantly higher. * He is making urine. * normal renal function/creatinine prior November 2023 hospitalization at [facility] * SAMANTHA/ARF last month during November 2023 hospital stay - records reviewed * admission creatinine 0.92mg/dl * peaked/platueaed at 3.03mg/dl * insult thought to be multifactorial ATN from prerenal factors, contrast exposure, hypotension, and possibly vancomycin * by time of discharge (12/05/23), creatinine was down to 2.55mg/dl * outpatient labs done on 12/14/23 demonstrated at creatinine of 1.45mg/dl * admission creatinine here noted to be 3.3mg/dl * etiology not clear; several possibilities including: * prerenal factors * relative hypotension * possible infection (UTI?) * drug reaction/AIN ( Vancomycin? chemotherapy?) * other(?) * evaluation to date noted: * Abd/Pelvis CT without obstruction/hydro * renal ultrasound also without obstruction * urine electrolytes non-prerenal * urine eosinophils negative; no peripheral eosinophilia (but ++ rash) * nephrotic range proteinuria * CPK okay * on further review of records, it would seems his SAMANTHA last month and currently seems to follow his cycle of chemotherapy every 21 days, specifically t,he use of nivolumab and ipilimumab * upon further investigation, these medications have been associated with SAMANTHA/ARF for a variety of reasons including acute interstitial nephritis (did he have AIN on his hospitalization at [facility]?) * will order serological evaluation * discussed with RANDI Maya -- will empirically start steroids given worsening rash This may help if it is from the immune checkpoint inhibitors or if it is from the vancomycin. * holding IVFs . Eating well. Making plenty of urine. * Renal scan showed poor uptake and also poor excretion. Not consistent with ATN per se. * No uremic symptoms. Hold off on dialysis maybe things will turn around before this is needed * follow trend of repeat labs and UOP (2) Metabolic acidosis: Code(s): E87.20 - Acidosis, unspecified Status: Acute Assessment and Plan: * likely due to SAMANTHA/ARF * started oral sodium bicarbonate to compensate. * Will increase the dose since the CO2 dropped to 13 (3) Anemia: Code(s): D64.9 - Anemia, unspecified Status: Acute Assessment and Plan: * related to SAMANTHA/ARF as well as underlying malignancy * follow trend of H/H * may need to consider ESPERANZA (4) Hyponatremia: Code(s): E87.1 - Hypo-osmolality and hyponatremia Status: Acute Assessment and Plan: * presumaby secondary to #1 * underlying malignancy maybe playing a role * sodium on 12/14/23 labs was 132mmol/L * sodium down to 125. * Will fluid restrict (5) Hypokalemia: Code(s): E87.6 - Hypokalemia Status: Acute Assessment and Plan: * normal today (6) Acute UTI: Code(s): N39.0 - Urinary tract infection, site not specified Status: Acute Assessment and Plan: * admission UA suggestive * follow culture results - culture so far negative * on ceftriaxone (7) Metastatic melanoma: Code(s): C43.9 - Malignant melanoma of skin, unspecified Status: Chroni
--- NOTE | 2023-12-22 13:41 | PM.PNNEP ---
Progress Note: A&P Assessment and Plan (1) Acute kidney injury: Code(s): N17.9 - Acute kidney failure, unspecified Status: Acute Assessment and Plan: ongoing deterioration noted The rise in the creatinine may be a little bit less than it had been the day before. But still significantly higher. He is making urine. normal renal function/creatinine prior November 2023 hospitalization at [facility] SAMANTHA/ARF last month during November 2023 hospital stay - records reviewed admission creatinine 0.92mg/dl peaked/platueaed at 3.03mg/dl insult thought to be multifactorial ATN from prerenal factors, contrast exposure, hypotension, and possibly vancomycin by time of discharge (12/05/23), creatinine was down to 2.55mg/dl outpatient labs done on 12/14/23 demonstrated at creatinine of 1.45mg/dl admission creatinine here noted to be 3.3mg/dl etiology not clear; several possibilities including: prerenal factors relative hypotension possible infection (UTI?) drug reaction/AIN ( Vancomycin? chemotherapy?) other(?) evaluation to date noted: Abd/Pelvis CT without obstruction/hydro renal ultrasound also without obstruction urine electrolytes non-prerenal urine eosinophils negative; no peripheral eosinophilia (but ++ rash) nephrotic range proteinuria CPK okay on further review of records, it would seems his SAMANTHA last month and currently seems to follow his cycle of chemotherapy every 21 days, specifically t,he use of nivolumab and ipilimumab upon further investigation, these medications have been associated with SAMANTHA/ARF for a variety of reasons including acute interstitial nephritis (did he have AIN on his hospitalization at [facility]?) will order serological evaluation discussed with RANDI Maya -- will empirically start steroids given worsening rash This may help if it is from the immune checkpoint inhibitors or if it is from the vancomycin. holding IVFs . Eating well. Making plenty of urine. Renal scan showed poor uptake and also poor excretion. Not consistent with ATN per se. No uremic symptoms. Hold off on dialysis maybe things will turn around before this is needed follow trend of repeat labs and UOP (2) Metabolic acidosis: Code(s): E87.20 - Acidosis, unspecified Status: Acute Assessment and Plan: likely due to SAMANTHA/ARF started oral sodium bicarbonate to compensate. Will increase the dose since the CO2 dropped to 13 (3) Anemia: Code(s): D64.9 - Anemia, unspecified Status: Acute Assessment and Plan: related to SAMANTHA/ARF as well as underlying malignancy follow trend of H/H may need to consider ESPERANZA (4) Hyponatremia: Code(s): E87.1 - Hypo-osmolality and hyponatremia Status: Acute Assessment and Plan: presumaby secondary to #1 underlying malignancy maybe playing a role sodium on 12/14/23 labs was 132mmol/L sodium down to 125. Will fluid restrict (5) Hypokalemia: Code(s): E87.6 - Hypokalemia Status: Acute Assessment and Plan: normal today (6) Acute UTI: Code(s): N39.0 - Urinary tract infection, site not specified Status: Acute Assessment and Plan: admission UA suggestive follow culture results - culture so far negative on ceftriaxone (7) Metastatic melanoma: Code(s): C43.9 - Malignant melanoma of skin, unspecified Status: Chronic Assessment and Plan: follows with Oncology (Dr. Cullen) on chemotherapy Discussed case with RANDI Maya. Will continue to follow. Subjective Date/time seen: 12/22/23 13:41 Interval history: family in the room. Patient sitting up in a chair. Eating okay. No shortness of breath rashes better he walked to the bathroom with a walker. Much stronger than he was on admission. Exam Narrative: General: middle aged WD/WN male in NAD Heart: go
[2023-12-22 14:00] VITALS: BP 112/70; PULSE 82; RESP 16; TEMP 36.3; O2SAT 99
[2023-12-22 17:10] LABS: Glucose Point of Care 499 mg/dl (65-105)
[2023-12-22] MEDS: SODIUM BICARBONATE TAB 650 MG TABLET 1300 MG PO (17:25)
[2023-12-22 17:57] LABS: Beta-Hydroxybutyrate/Acetoacetate 0.18 mmol/L (0.02-0.27)
[2023-12-22 17:59] LABS: Anion Gap 15 mmol/L (4-12); Blood Urea Nitrogen 76 mg/dL (9-20); Calcium 6.9 mg/dL (8.4-10.2); Carbon Dioxide 13 mmol/L (22-30); Chloride 95 mmol/L (98-107); Estimated CRCL calculation 14 ml/min; Estimated Glomerular Filt Rate 8; Glucose 533 mg/dL (65-110); Sodium 123 mmol/L (137-145)
--- NOTE | 2023-12-22 18:00 | PC.NURSE ---
On 12/22/23, the CAREER PORTALS TEACHER, [Christine Mcgee ], provided care and completed [facility] documentation on this patient. I have reviewed the CAREER PORTALS TEACHER's documentation and agree with the findings.
[2023-12-22] MEDS: INSULIN ASPART (*BKC) 100 UNITS/ML 12 UNITS SUB-Q (18:10)
[2023-12-22 18:19] LABS: Alanine Aminotransferase 197 U/L (6-50); Albumin Level 2.8 g/dL (3.5-5.1); Alkaline Phosphatase 431 U/L (38-126); Aspartate Amino Transferase 154 U/L (17-59)
[2023-12-22 18:27] LABS: Bilirubin,Total 0.5 mg/dL (0.2-1.3)
[2023-12-22] MEDS: SODIUM BICARBONATE 8.4% 50 MEQ/50 ML SYRINGE 100 MEQ IV PUSH (20:21)
[2023-12-22 20:30] VITALS: BP 119/74; PULSE 82; RESP 16; TEMP 35.9; O2SAT 99
[2023-12-22 21:31] LABS: Glucose Point of Care > 500 mg/dl (65-105)
[2023-12-22] MEDS: INSULIN GLARGINE (*BKC) 100 UNITS/ML 40 UNITS SUB-Q (21:43)
[2023-12-22] MEDS: INSULIN HUMAN REGULAR (*BKC) 100 UNITS/ML 10 UNITS SUB-Q (21:47)
[2023-12-23 02:18] LABS: Glucose Point of Care 367 mg/dl (65-105)
[2023-12-23 04:50] VITALS: BP 106/69; PULSE 69; RESP 20; TEMP 35.9; O2SAT 100
[2023-12-23] MEDS: LEVOTHYROXINE SODIUM 12.5 MCG TABLET BY MOUTH (05:24)
[2023-12-23] MEDS: LEVOTHYROXINE SODIUM 25 MCG TABLET BY MOUTH (05:24)
[2023-12-23 05:49] LABS: Alanine Aminotransferase 172 U/L (6-50); Albumin Level 2.6 g/dL (3.5-5.1); Alkaline Phosphatase 335 U/L (38-126); Anion Gap 15 mmol/L (4-12); Aspartate Amino Transferase 100 U/L (17-59); Bilirubin,Total 0.5 mg/dL (0.2-1.3); Blood Urea Nitrogen 78 mg/dL (9-20); Carbon Dioxide 17 mmol/L (22-30); Chloride 94 mmol/L (98-107); Estimated CRCL calculation 15 ml/min; Estimated Glomerular Filt Rate 8; Glucose 306 mg/dL (65-110); Potassium 3.8 mmol/L (3.4-5.0); Sodium 126 mmol/L (137-145)
[2023-12-23 07:13] LABS: Hematocrit 22.4 % (42.0-52.0); Hemoglobin 7.6 g/dL (14.0-18.0); Mean Corpuscular HGB Conc 33.9 g/dl (32-36); Mean Corpuscular Hemoglobin 27.9 pg (26-34); Mean Corpuscular Volume 82.4 fl (80-100); Mean Platelet Volume 11.3 fl (7.4-10.4); Platelet Count Result 108 k/mm3 (150-375); Red Blood Count 2.72 M/mm3 (4.6-6.20); Red Cell Distribution Width 15.5 % (11.5-14.5); White Blood Count 19.3 K/mm3 (4.5-10.0)
[2023-12-23 07:36] LABS: Band Neutrophils Percent 2 % (0-6); Lymphocytes Absolute Manual 1.15 K/mm3 (1.1-4.5); Microcytosis 1+ (NORMAL); Monocytes Absolute Manual 0.38 K/mm3 (0.1-0.90); Monocytes Percent Manual 2 % (3-9); Neutrophils Absolute Manual 17.75 K/mm3 (1.3-6.7); Neutrophils Percent Manual 90 % (46-73); Platelet Estimate Slightly Decreased (Adequate); Total Cells Counted 100
[2023-12-23 07:37] LABS: Schistocytes None Seen; Toxic Granulation Present
--- NOTE | 2023-12-23 07:57 | PM.IMPN ---
Progress Note: A&P Assessment and Plan (1) Acute UTI: Code(s): N39.0 - Urinary tract infection, site not specified Status: Acute Assessment and Plan: UA unremarkable with mixed superficial genital andrea -pt on day 3 of abx due to immunocompromise status and hx of fever (could be multifactorial). Tmax 101.7 7/3 -WBC likely elevated due to steroids, no fevers noted in last 48 hours -lactic acid up a bit but I do not think this is signifiying worsening infx. Pt is feeling well, eating, walking around the room etc. -BC NGTD (2) Acute kidney injury: Code(s): N17.9 - Acute kidney failure, unspecified Status: Acute Assessment and Plan: AIN suspected due to chemo use -Cr trending down today, now 7.1. Peaked 7/ at 7.7 -continue steroids -electrolytes stable- sodium 131 when corrected for hyperglycemia. baseline around 132 per outpt labs 12/13 - Co2 improved with bicarp -nephrology consulted, pt has a hx of this type of reaction after last chemo as well -anion gap elevated but stable, lactic mildly high and beta hydroxybutyrate normal -recheck bmp this afternoon -await pending labs (3) Hyponatremia: Code(s): E87.1 - Hypo-osmolality and hyponatremia Status: Acute Assessment and Plan: sodium 131 when corrected for hyperglycemia -outpt labs 12/13 reveal 132 -monitor with daily labs (4) Diabetes: Code(s): E11.9 - Type 2 diabetes mellitus without complications Status: Acute Assessment and Plan: hemoglobin A1c 8.9 but worsened due to edson and steroids -lantus started by previous provider yesterday and glucose has improved today -Continue SSI, ACHS accuchecks, hypoglycemia protocol -If steroids are tappered, will need to decrease lantus since this is a high dose and pt does not take it at home -holding metformin. -increase SSI (5) Anemia: Code(s): D64.9 - Anemia, unspecified Status: Acute Assessment and Plan: Hemoglobin 9.3 on admit, down to 7.6 on AM labs this morning -Heme/Onc consulted -Nephrology notified in case epoetin needs ordered, Nephrology requested stool occult blood test, not collected yet -Petechia noted on feet/legs -hemolytic anemia less likely (bili normal, retic low. LDH mildly high but not overwhelming. haptoglobin pending. No schistocytes. Will order peripheral smear -B12 elevated, Folate normal, iron normal with high % saturation and elevated ferritin -no plans to transfuse unless pt is symptomatic and drops <7 (6) Thrombocytopenia: Code(s): D69.6 - Thrombocytopenia, unspecified Status: Acute Assessment and Plan: improving, now 108,000 -monitor (7) Metabolic acidosis: Code(s): E87.20 - Acidosis, unspecified Status: Acute Assessment and Plan: As above Carbon dioxide 17, anion gap 15 on AM labs oral bicarb to 1300 mg BID lactic mildly high monitor with daily labs l (8) Acute hypokalemia: Code(s): E87.6 - Hypokalemia Status: Resolved Assessment and Plan: resolved (9) Hypomagnesemia: Code(s): E83.42 - Hypomagnesemia Status: Resolved Assessment and Plan: resolved (10) Transaminitis: Code(s): R74.01 - Elevation of levels of liver transaminase levels Status: Acute Assessment and Plan: Improving -will hold statin -could be due to chemo etc. if they do not improve consider hepatic u/s to assess for mets (seems less likely since they are improving) -monitor with daily labs (11) Metastatic melanoma: Code(s): C43.9 - Malignant melanoma of skin, unspecified Status: Chronic Assessment and Plan: patient is receiving treatment for metastatic melanoma with known spread to left groin/thigh undergoing treatment at [facility] recent hospitalization in [place] with similar presentation and laboratory abnormalities, 11 day admission per patient report -
[2023-12-23 08:00] VITALS: BP 109/78; PULSE 78; RESP 12; TEMP 36.4; O2SAT 100
[2023-12-23 08:05] LABS: Glucose Point of Care 284 mg/dl (65-105)
[2023-12-23] MEDS: SODIUM BICARBONATE TAB 650 MG TABLET 1300 MG PO ×2 (08:53→17:47)
[2023-12-23] MEDS: LORATADINE 10 MG TABLET PO ×2 (08:53→21:07)
[2023-12-23] MEDS: MAGNESIUM OXIDE 200 MG TABLET PO ×2 (08:54→21:07)
[2023-12-23] MEDS: CENTRAL LINE FLUSH 10 ML IV PUSH ×3 (08:55→21:10)
[2023-12-23] MEDS: INSULIN ASPART (*BKC) 100 UNITS/ML SUB-Q ×3 (08:57→17:30)
[2023-12-23] MEDS: INSULIN GLARGINE (*BKC) 100 UNITS/ML 40 UNITS SUB-Q ×2 (08:58→21:08)
[2023-12-23] MEDS: methylPREDNISolone SOD SUCC 40 MG VIAL IV PUSH ×2 (09:01→21:07)
[2023-12-23 09:03] LABS: Reticulocyte Hemoglobin Conten 26.3 pg (28.2-36.6); Reticulocytes Absolute 0.05 10^6/uL (0.02-0.10)
[2023-12-23 09:12] LABS: Lactate Dehydrogenase 330 U/L (120-246); Lactic Acid Reflex 2.3 mmol/L (0.7-2.0)
[2023-12-23 09:18] LABS: Protein, Total 4.8 g/dL (6.1-8.1)
--- NOTE | 2023-12-23 09:40 | P.PNNP_ITS ---
Progress Note: A&P Assessment and Plan (1) Acute kidney injury: Code(s): N17.9 - Acute kidney failure, unspecified Status: Acute Assessment and Plan: * ongoing deterioration noted * the creatinine improved today. * He is making urine. * normal renal function/creatinine prior November 2023 hospitalization at [facility] * SAMANTHA/ARF last month during November 2023 hospital stay - records reviewed * admission creatinine 0.92mg/dl * peaked/platueaed at 3.03mg/dl * insult thought to be multifactorial ATN from prerenal factors, contrast exposure, hypotension, and possibly vancomycin * by time of discharge (12/05/23), creatinine was down to 2.55mg/dl * outpatient labs done on 12/14/23 demonstrated at creatinine of 1.45mg/dl * admission creatinine here noted to be 3.3mg/dl * etiology not clear; several possibilities including: * prerenal factors * relative hypotension * possible infection (UTI?) * drug reaction/AIN ( Vancomycin? chemotherapy?) * other(?) * evaluation to date noted: * Abd/Pelvis CT without obstruction/hydro * renal ultrasound also without obstruction * urine electrolytes non-prerenal * urine eosinophils negative; no peripheral eosinophilia (but ++ rash) * nephrotic range proteinuria * CPK okay * on further review of records, it would seems his SAMANTHA last month and currently seems to follow his cycle of chemotherapy every 21 days, specifically t,he use of nivolumab and ipilimumab * upon further investigation, these medications have been associated with SAMANTHA/ARF for a variety of reasons including acute interstitial nephritis (did he have AIN on his hospitalization at [facility]?) * will order serological evaluation * discussed with RANDI Maya -- will empirically start steroids given worsening rash This may help if it is from the immune checkpoint inhibitors or if it is from the vancomycin. * holding IVFs . Eating well. Making plenty of urine. * Renal scan showed poor uptake and also poor excretion. Not consistent with ATN per se. * No uremic symptoms. Since the creatinine is better we can hold off on dialysis. * follow trend of repeat labs and UOP (2) Metabolic acidosis: Code(s): E87.20 - Acidosis, unspecified Status: Acute Assessment and Plan: * likely due to SAMANTHA/ARF * started oral sodium bicarbonate to compensate. * CO2 a little bit better today. (3) Anemia: Code(s): D64.9 - Anemia, unspecified Status: Acute Assessment and Plan: * related to SAMANTHA/ARF as well as underlying malignancy * follow trend of H/H * He also has a low platelet count. * Yesterday was in the 70s. Today it is up to 108. He does have some petechiae from the low platelets. * Because of the low platelets this brings up the possibility of TTP, however the patient does not have schistocytes. The platelet count is actually better than yesterday. * Discussed with J CARLOS Maya yesterday. Will also see what his reticulocyte count shows and Dr. Watts is going to see him tomorrow (4) Hyponatremia: Code(s): E87.1 - Hypo-osmolality and hyponatremia Status: Acute Assessment and Plan: * presumaby secondary to #1 * underlying malignancy maybe playing a role * sodium on 12/14/23 labs was 132mmol/L * sodium up a little bit to 126. * He is on fluid restriction (5) Hypokalemia: Code(s): E87.6 - Hypokalemia Status: Acute Assessment and Plan: * normal today (6) Acute UTI: Code(s):
--- NOTE | 2023-12-23 09:40 | PM.PNNEP ---
Progress Note: A&P Assessment and Plan (1) Acute kidney injury: Code(s): N17.9 - Acute kidney failure, unspecified Status: Acute Assessment and Plan: ongoing deterioration noted the creatinine improved today. He is making urine. normal renal function/creatinine prior November 2023 hospitalization at [facility] SAMANTHA/ARF last month during November 2023 hospital stay - records reviewed admission creatinine 0.92mg/dl peaked/platueaed at 3.03mg/dl insult thought to be multifactorial ATN from prerenal factors, contrast exposure, hypotension, and possibly vancomycin by time of discharge (12/05/23), creatinine was down to 2.55mg/dl outpatient labs done on 12/14/23 demonstrated at creatinine of 1.45mg/dl admission creatinine here noted to be 3.3mg/dl etiology not clear; several possibilities including: prerenal factors relative hypotension possible infection (UTI?) drug reaction/AIN ( Vancomycin? chemotherapy?) other(?) evaluation to date noted: Abd/Pelvis CT without obstruction/hydro renal ultrasound also without obstruction urine electrolytes non-prerenal urine eosinophils negative; no peripheral eosinophilia (but ++ rash) nephrotic range proteinuria CPK okay on further review of records, it would seems his SAMANTHA last month and currently seems to follow his cycle of chemotherapy every 21 days, specifically t,he use of nivolumab and ipilimumab upon further investigation, these medications have been associated with SAMANTHA/ARF for a variety of reasons including acute interstitial nephritis (did he have AIN on his hospitalization at [facility]?) will order serological evaluation discussed with RANDI Maya -- will empirically start steroids given worsening rash This may help if it is from the immune checkpoint inhibitors or if it is from the vancomycin. holding IVFs . Eating well. Making plenty of urine. Renal scan showed poor uptake and also poor excretion. Not consistent with ATN per se. No uremic symptoms. Since the creatinine is better we can hold off on dialysis. follow trend of repeat labs and UOP (2) Metabolic acidosis: Code(s): E87.20 - Acidosis, unspecified Status: Acute Assessment and Plan: likely due to SAMANTHA/ARF started oral sodium bicarbonate to compensate. CO2 a little bit better today. (3) Anemia: Code(s): D64.9 - Anemia, unspecified Status: Acute Assessment and Plan: related to SAMANTHA/ARF as well as underlying malignancy follow trend of H/H He also has a low platelet count. Yesterday was in the 70s. Today it is up to 108. He does have some petechiae from the low platelets. Because of the low platelets this brings up the possibility of TTP, however the patient does not have schistocytes. The platelet count is actually better than yesterday. Discussed with J CARLOS Maya yesterday. Will also see what his reticulocyte count shows and Dr. Watts is going to see him tomorrow (4) Hyponatremia: Code(s): E87.1 - Hypo-osmolality and hyponatremia Status: Acute Assessment and Plan: presumaby secondary to #1 underlying malignancy maybe playing a role sodium on 12/14/23 labs was 132mmol/L sodium up a little bit to 126. He is on fluid restriction (5) Hypokalemia: Code(s): E87.6 - Hypokalemia Status: Acute Assessment and Plan: normal today (6) Acute UTI: Code(s): N39.0 - Urinary tract infection, site not specified Status: Acute Assessment and Plan: admission UA suggestive follow culture results - culture so far negative on ceftriaxone (7) Metastatic melanoma: Code(s): C43.9 - Malignant melanoma of skin, unspecified Status: Chronic Assessment and Plan: follows with Oncology (Dr. Cullen) on chemotherapy Discussed case with RANDI Maya yesterday. Subjective Date/time seen: 12/23/23 09:40 Shalinia
[2023-12-23 10:12] VITALS: BP 105/75; BP 111/72; PULSE 86; PULSE 90
[2023-12-23 11:59] LABS: Glucose Point of Care 341 mg/dl (65-105)
[2023-12-23 12:01] LABS: Reflex Lactic Acid Yes or No Add Lactic
[2023-12-23 12:38] LABS: Lactic Acid 2.6 mmol/L (0.7-2.0)
[2023-12-23 12:47] LABS: IFOB Positive Control Positive; Immunochemical Fecal Occult Bl Negative (N)
[2023-12-23 14:00] VITALS: BP 111/74; PULSE 77; RESP 20; TEMP 36.6; O2SAT 99
[2023-12-23 15:09] LABS: Anion Gap 16 mmol/L (4-12); Blood Urea Nitrogen 82 mg/dL (9-20); Calcium 6.9 mg/dL (8.4-10.2); Carbon Dioxide 17 mmol/L (22-30); Chloride 92 mmol/L (98-107); Estimated CRCL calculation 15 ml/min; Estimated Glomerular Filt Rate 9; Glucose 383 mg/dL (65-110); Potassium 3.8 mmol/L (3.4-5.0); Sodium 125 mmol/L (137-145)
[2023-12-23 15:40] LABS: Strep Group A RT-PCR NOT DETECTED (Negative)
[2023-12-23 17:03] LABS: Glucose Point of Care 352 mg/dl (65-105)
--- NOTE | 2023-12-23 17:26 | PC.NURSE ---
On 12/23/23, the STATION USHER, [Christine Mcgee ], provided care and completed [facility] documentation on this patient. I have reviewed the STATION USHER's documentation and agree with the findings.
[2023-12-23 20:23] LABS: Glucose Point of Care 374 mg/dl (65-105)
[2023-12-23 21:04] VITALS: BP 120/74; PULSE 76; RESP 13; TEMP 36.1; O2SAT 99
[2023-12-23 21:48] LABS: Lactic Acid Reflex 2.4 mmol/L (0.7-2.0)
[2023-12-24] VITALS (10 sets, daily range): BP systolic 107–125; BP diastolic 69–85; PULSE 72–83; RESP 12–18; TEMP 36.1–36.6; O2SAT 98–100
[2023-12-24 00:35] LABS: Reflex Lactic Acid Yes or No Add Lactic
[2023-12-24] MEDS: LEVOTHYROXINE SODIUM 25 MCG TABLET BY MOUTH (06:36)
[2023-12-24] MEDS: LEVOTHYROXINE SODIUM 12.5 MCG TABLET BY MOUTH (06:36)
[2023-12-24] MEDS: CENTRAL LINE FLUSH 10 ML IV PUSH ×3 (06:38→20:31)
[2023-12-24 07:05] LABS: Basophils Percent Auto 0.1 % (0.2-1.2); Eosinophils Percent Auto 0.1 % (0-4.4); Immature Granulocyte Absolute 0.19 K/mm3 (0.00-0.031); Immature Granulocyte Percent A 1.3 % (0-0.5); Lymphocytes Absolute Auto 1.21 K/mm3 (0.9-3.2); Mean Corpuscular HGB Conc 33.3 g/dl (32-36); Mean Corpuscular Hemoglobin 27.8 pg (26-34); Mean Corpuscular Volume 83.5 fl (80-100); Mean Platelet Volume 10.5 fl (7.4-10.4); Monocytes Absolute Auto 0.3 K/mm3 (0.1-0.6); Monocytes Percent Auto 2.2 % (2.6-8.5); Neutrophils Absolute Auto 13.4 K/mm3 (1.3-6.7); Neutrophils Percent Auto 88.3 % (45.5-73.1); Platelet Count Result 104 k/mm3 (150-375); Red Blood Count 2.48 M/mm3 (4.6-6.20); Red Cell Distribution Width 15.5 % (11.5-14.5); White Blood Count 15.2 K/mm3 (4.5-10.0)
[2023-12-24 07:15] LABS: Alanine Aminotransferase 153 U/L (6-50); Albumin Level 2.5 g/dL (3.5-5.1); Alkaline Phosphatase 283 U/L (38-126); Anion Gap 12 mmol/L (4-12); Aspartate Amino Transferase 59 U/L (17-59); Bilirubin,Total 0.4 mg/dL (0.2-1.3); Blood Urea Nitrogen 83 mg/dL (9-20); Calcium 6.9 mg/dL (8.4-10.2); Carbon Dioxide 20 mmol/L (22-30); Chloride 94 mmol/L (98-107); Estimated CRCL calculation 17 ml/min; Estimated Glomerular Filt Rate 10; Glucose 183 mg/dL (65-110); Magnesium 1.8 mg/dL (1.6-2.3); Phosphorus 5.2 mg/dL (2.5-4.5); Potassium 3.6 mmol/L (3.4-5.0); Sodium 126 mmol/L (137-145)
[2023-12-24 07:16] LABS: Lactic Acid 1.9 mmol/L (0.7-2.0)
[2023-12-24 07:30] LABS: Hematocrit 20.7 % (42.0-52.0); Hemoglobin 6.9 g/dL (14.0-18.0)
[2023-12-24 07:32] LABS: Glucose Point of Care 167 mg/dl (65-105)
[2023-12-24] MEDS: MAGNESIUM OXIDE 200 MG TABLET PO ×2 (08:36→20:30)
[2023-12-24] MEDS: LORATADINE 10 MG TABLET PO ×2 (08:36→20:30)
[2023-12-24] MEDS: methylPREDNISolone SOD SUCC 40 MG VIAL IV PUSH (08:36)
[2023-12-24] MEDS: SODIUM BICARBONATE TAB 650 MG TABLET 1300 MG PO ×2 (08:36→16:52)
[2023-12-24] MEDS: INSULIN GLARGINE (*BKC) 100 UNITS/ML 40 UNITS SUB-Q ×2 (08:54→20:47)
--- NOTE | 2023-12-24 10:25 | PM.PNNEP ---
Progress Note: A&P Assessment and Plan (1) Acute kidney injury: Code(s): N17.9 - Acute kidney failure, unspecified Status: Acute Assessment and Plan: slow improvement noted still making urine as well normal renal function/creatinine prior November 2023 hospitalization at [facility] SAMANTHA/ARF last month during November 2023 hospital stay - records reviewed admission creatinine 0.92mg/dl peaked/platueaed at 3.03mg/dl insult thought to be multifactorial ATN from prerenal factors, contrast exposure, hypotension, and possibly vancomycin by time of discharge (12/05/23), creatinine was down to 2.55mg/dl outpatient labs done on 12/14/23 demonstrated at creatinine of 1.45mg/dl admission creatinine here noted to be 3.3mg/dl etiology not clear; several possibilities including: prerenal factors relative hypotension possible infection (UTI?) drug reaction/AIN (Vancomycin? chemotherapy?) other(?) evaluation to date noted: Abd/Pelvis CT without obstruction/hydro renal ultrasound also without obstruction urine electrolytes non-prerenal urine eosinophils negative; no peripheral eosinophilia (but ++ rash) nephrotic range proteinuria CPK okay on further review of records, it would seems his SAMANTHA last month and currently seems to follow his cycle of chemotherapy every 21 days, specifically the use of nivolumab and ipilimumab upon further investigation, these medications have been associated with SAMANTHA/ARF for a variety of reasons including acute interstitial nephritis (did he have AIN on his hospitalization at [facility]?) serological evaluation pending empirically started on steroids given worsening rash on 12/21/23 -- his may help if it is from the immune checkpoint inhibitors or if it is from the vancomycin. renal scan showed poor uptake and also poor excretion - not consistent with ATN per se. follow trend of repeat labs and UOP (2) Metabolic acidosis: Code(s): E87.20 - Acidosis, unspecified Status: Acute Assessment and Plan: likely due to SAMANTHA/ARF started oral sodium bicarbonate to compensate. CO2 levels improving (3) Anemia: Code(s): D64.9 - Anemia, unspecified Status: Acute Assessment and Plan: related to SAMANTHA/ARF as well as underlying malignancy follow trend of H/H PRBC transfusion per protocol (4) Hyponatremia: Code(s): E87.1 - Hypo-osmolality and hyponatremia Status: Acute Assessment and Plan: presumaby secondary to #1 underlying malignancy maybe playing a role sodium on 12/14/23 labs was 132mmol/L relatively stable follow trend (5) Acute UTI: Code(s): N39.0 - Urinary tract infection, site not specified Status: Acute Assessment and Plan: admission UA suggestive follow culture results - culture so far negative on antibiotics (6) Metastatic melanoma: Code(s): C43.9 - Malignant melanoma of skin, unspecified Status: Chronic Assessment and Plan: follows with Oncology (Dr. Cullen) on chemotherapy Will continue to follow. Subjective Date/time seen: 12/24/23 10:25 Interval history: Follow-up for acute kidney injury/acute renal failure. Chart reviewed since last seen -- renal function appears to be doing better (albeit slowly); making some urine (not fully documented); no apparent distress noted at the time of my visit; low H/H noted so getting PRBC transfusion today; no issues/events overnight or earlier this AM. Exam Narrative: General: middle aged WD/WN male in NAD Heart: normal S1 and S2; no rub Lungs: clear to auscultation Abdomen: soft, nontender, nondistended, positive bowel sounds Extremities: no edema or cyanosis Skin: improving pruritic rash (face, trunk, and extremities) Objective Data Vital Signs Vital Signs: Vital Signs Temp Pulse Resp BP Pulse Ox O2 Del Method 12/24/23 10:20 97.4 F L 77 16 107/77 9
--- NOTE | 2023-12-24 10:25 | P.PNNP_ITS ---
Progress Note: A&P Assessment and Plan (1) Acute kidney injury: Code(s): N17.9 - Acute kidney failure, unspecified Status: Acute Assessment and Plan: * slow improvement noted * still making urine as well * normal renal function/creatinine prior November 2023 hospitalization at [facility] * SAMANTHA/ARF last month during November 2023 hospital stay - records reviewed * admission creatinine 0.92mg/dl * peaked/platueaed at 3.03mg/dl * insult thought to be multifactorial ATN from prerenal factors, contrast exposure, hypotension, and possibly vancomycin * by time of discharge (12/05/23), creatinine was down to 2.55mg/dl * outpatient labs done on 12/14/23 demonstrated at creatinine of 1.45mg/dl * admission creatinine here noted to be 3.3mg/dl * etiology not clear; several possibilities including: * prerenal factors * relative hypotension * possible infection (UTI?) * drug reaction/AIN (Vancomycin? chemotherapy?) * other(?) * evaluation to date noted: * Abd/Pelvis CT without obstruction/hydro * renal ultrasound also without obstruction * urine electrolytes non-prerenal * urine eosinophils negative; no peripheral eosinophilia (but ++ rash) * nephrotic range proteinuria * CPK okay * on further review of records, it would seems his SAMANTHA last month and currently seems to follow his cycle of chemotherapy every 21 days, specifically the use of nivolumab and ipilimumab * upon further investigation, these medications have been associated with SAMANTHA/ARF for a variety of reasons including acute interstitial nephritis (did he have AIN on his hospitalization at [facility]?) * serological evaluation pending * empirically started on steroids given worsening rash on 12/21/23 -- his may help if it is from the immune checkpoint inhibitors or if it is from the vancomycin. * renal scan showed poor uptake and also poor excretion - not consistent with ATN per se. * follow trend of repeat labs and UOP (2) Metabolic acidosis: Code(s): E87.20 - Acidosis, unspecified Status: Acute Assessment and Plan: * likely due to SAMANTHA/ARF * started oral sodium bicarbonate to compensate. * CO2 levels improving (3) Anemia: Code(s): D64.9 - Anemia, unspecified Status: Acute Assessment and Plan: * related to SAMANTHA/ARF as well as underlying malignancy * follow trend of H/H * PRBC transfusion per protocol (4) Hyponatremia: Code(s): E87.1 - Hypo-osmolality and hyponatremia Status: Acute Assessment and Plan: * presumaby secondary to #1 * underlying malignancy maybe playing a role * sodium on 12/14/23 labs was 132mmol/L * relatively stable * follow trend (5) Acute UTI: Code(s): N39.0 - Urinary tract infection, site not specified Status: Acute Assessment and Plan: * admission UA suggestive * follow culture results - culture so far negative * on antibiotics (6) Metastatic melanoma: Code(s): C43.9 - Malignant melanoma of skin, unspecified Status: Chronic Assessment and Plan: * follows with Oncology (Dr. Cullen) * on chemotherapy Will continue to follow. Subjective Date/time seen: 12/24/23 10:25 Interval history: Follow-up for acute kidney injury/acute renal failure. Chart reviewed since last seen -- renal function appears to be doing better (albeit slowly); making some urine (not fully documented); no apparent distress noted at the time of my visit; low H/H noted so getting
[2023-12-24] MEDS: SODIUM CHLORIDE 0.9% IV 250 ML 30 ML IV CONT (11:10)
[2023-12-24 11:25] LABS: Glucose Point of Care 283 mg/dl (65-105)
[2023-12-24 12:00] LABS: Creatinine, Random Urine 46 mg/dL (20-320); Total Protein/Creatinine Ratio 630 mg/g creat (25-148)
[2023-12-24] MEDS: INSULIN ASPART (*BKC) 100 UNITS/ML SUB-Q ×2 (12:29→16:52)
[2023-12-24 12:33] LABS: SM Antibody <1.0 NEG AI (<1.0 NEG); SM/RNP Antibody <1.0 NEG AI (<1.0 NEG); SS-A <1.0 NEG AI (<1.0 NEG); SS-B <1.0 NEG AI (<1.0 NEG)
[2023-12-24 13:33] LABS: Hepatitis B Core Ab Total NON-REACTIVE (NON-REACTIVE)
--- NOTE | 2023-12-24 15:13 | PM.IMPN ---
Progress Note: A&P Assessment and Plan (1) Transaminitis: Code(s): R74.01 - Elevation of levels of liver transaminase levels Status: Acute (2) Thrombocytopenia: Code(s): D69.6 - Thrombocytopenia, unspecified Status: Acute (3) Metabolic acidosis: Code(s): E87.20 - Acidosis, unspecified Status: Acute (4) Anemia: Code(s): D64.9 - Anemia, unspecified Status: Acute (5) Diabetes: Code(s): E11.9 - Type 2 diabetes mellitus without complications Status: Acute (6) Metastatic melanoma: Code(s): C43.9 - Malignant melanoma of skin, unspecified Status: Chronic Plan # acute kidney injury next-attributed to his chemotherapy - patient is making urine, creatinine down trending to 6.1, nephrology consulted - appreciate Nephrology consult: On bicarb, holding off dialysis as he is making urine # thrombocytopenia, anemia -patient has anemia and thrombocytopenia likely secondary to chemotherapy ( he appears not to be tolerating the chemotherapy also with his kidney failure) -Petechiae improving - hemoglobin 6.9 giving 1 unit packed red blood cells -awaiting Hematology Oncology consultation - patients on steroids Solu-Medrol 40 mg q.12 hours, rash is improving may titrate down tomorrow # metastatic melanoma -Patient on 3 rounds of chemotherapy, may discontinue altogether considering his complications - patient to follow-up with Hematology-Oncology # fever of unknown origin -Patient completing a week of antibiotics Rocephin to cefdinir -persistent leukocytosis from steroids - no source of fever identified, may be secondary to cancer - blood cultures no growth today # electrolyte imbalances - sodium 126, chloride 94 - phosphorus 5.2, calcium 6.9 - mg 1.8 # chronic conditions -Allergies: Claritin -hypothyroidism: Levothyroxine -Insulin dependent type 2 diabetes: Glargine 40 units q.12 hours, sliding scale insulin, Accu-Cheks a.c. HS, hypoglycemia protocol Diet: diabetic diet DVT prophylaxis: SCDs, no chemoprophylaxis with thrombocytopenia and anemia Code status: Full code Disposition: home pending improvement of renal function, >3 days Time Spent With Patient Time: 35 minutes Subjective Date/time seen: 12/24/23 15:13 Interval history: Patient seen and examined. He is doing well no new complaints. Patient has petechiae. To be improving. Hemoglobin dropped to 6.9, giving 1 unit packed red blood cells. He may stop his chemotherapy for his metastatic melanoma as he is having difficulties with his kidney function and thrombocytopenia /anemia. we are waiting Hematology-Oncology follow-up. Patient denies fever, chills, nausea, vomiting, diarrhea, chest pain, shortness of breath. Review of Systems Review of Systems: 10 point ROS complete, negative other than what is specified in HPI. Exam Narrative: - GENERAL: pleasant male in no acute distress - EYES: EOMI. Anicteric. - HENT: Moist mucous membranes. - LUNGS: Clear to auscultation bilaterally, no wheezing, rhonchi, or rales. - CARDIOVASCULAR: Regular rate and rhythm. No murmur. No JVD. - ABDOMEN: Soft, non-tender and non-distended. No palpable masses. - EXTREMITIES: No edema. Peripheral pulses 2+. Non-tender. large mass/ lymphadenopathy in left inguinal canal - NEUROLOGIC: No focal neurological deficits. CN II-XII grossly intact. - PSYCHIATRIC: Awake, Alert and oriented x 3. Appropriate mood and affect. - SKIN: petechiae present, prominently on things on lower extremities , minimal on abdomen Objective Data Vital Signs Vital Signs: Vital Signs - 24 hr 12/23/23 21:04 12/24/23 05:23 12/24/23 09:30 Temperature 36.1 C L 36.2 C L 36.1 C L Pulse Rate 76 78 72 Respiratory Rate 13 12 18 Blood Pressure 120/74 116/72 111/70 Pulse Oximetry 99 100 98 Oxygen Delivery 12/24/23 09:33 12/24/23 09:35 12/24/23 08:35 Temperature Pulse Rate 76 83 Respiratory Rate
[2023-12-24 15:53] LABS: Kappa\\Lambda Light Chains 1.27 (0.26-1.65); Lambda Light Chain 62.6 mg/L (5.7-26.3)
[2023-12-24 16:04] LABS: Albumin 2.3 g/dL (3.8-4.8); Alpha 1 Globulin 0.5 g/dL (0.2-0.3); Alpha 2 Globulin 0.7 g/dL (0.5-0.9); Beta 1 Globulin 0.3 g/dL (0.4-0.6); Gamma Globulin 0.7 g/dL (0.8-1.7)
[2023-12-24 16:35] LABS: Glucose Point of Care 222 mg/dl (65-105)
[2023-12-24 17:13] LABS: Haptoglobin 251 mg/dL (43-212)
--- NOTE | 2023-12-24 19:09 | PDONCCN ---
HPI - Date of Consult Date/Time: 12/24/23 19:09 Requesting Physician: Katelynn Tovar PA-C Primary Care Provider: Leobardo Fox MD - Consult Narrative Reason for consult: Anemia and thrombocytopenia. Narrative: Zeke Latif is a 53 year old male with history of recurrent metastatic melanoma initially diagnosed in 2021 involving left ankle. He was diagnosed stage IIIA left inguinal lymph node involvement. He received 8 months of immunotherapy treatment with but was not able to complete 1 year maintenance treatment due to change in insurance. He subsequently developed relapse melanoma just anterior to the initial melanoma resection site with bulky left inguinal lymphadenopathy this was discovered again in May of 2023. He was started on immunotherapy treatment with ipilimumab and that he received 3 cycles with the last treatment being on December 13. He has been under care of Dr. Cullen. Patient came into the hospital with extreme weakness nausea vomiting lightheadedness and dizziness. Labs showed hemoglobin of 6.9 and platelet of [id number]. His creatinine was 3.1 on admission and now 6.1. He denies any previous history of renal insufficiency. Other labs showed normal iron study and elevated vitamin B12 and ferritin. LDH was slightly elevated and 330. There was no schistocytes on the peripheral smear. Total bilirubin was normal. CT abdomen and pelvis showed moderate splenomegaly and 8.4 cm mass in the left thigh suspicious for malignancy along with diffuse hepatic is and ascites. He denies any other complaints. Review of Systems - Review of Systems All systems reviewed & are unremarkable except as noted in [facility] and [facility] Medical History: Medical History (Last Updated 12/22/23 @ 07:03 by Jacinta Arevalo MD) Diabetes GERD (gastroesophageal reflux disease) Metastatic melanoma EJ (obstructive sleep apnea) Family History: Family History (Last Updated 12/22/23 @ 07:03 by Jacinta Arevalo MD) Other Adopted - Social History Social History: Social History (Last Updated 12/22/23 @ 16:05 by Jhonny Maya APRN) Gender Identity: Gender identity (if verbalized by the patient): Male Sexual Orientation: Sexual Orientation (if Verbalized by the Patient): Straight or Heterosexual Alcohol Use: Alcohol intake: former Substance Use: Substance use: never Others: Spiritual care concerns: No Living Arrangements: Living arrangements: with family Oppucation/Education: Occupation/Education: occupation Smoking Status: Smoking status: Never smoker Social Determinants of Health: Do You Feel Safe in your Home?: Yes Has the Lack of Transportation Kept You From Medical Appointments or From Getting Medications?: No Within the Past 12 Months, Were You Worried Whether Your Food Would Run Out Before You Got Money to Buy More?: Never True What is Your Housing Situation Today?: I Have Housing Are You Worried That in the Next 2 Months, You May Not Have Your Own Housing to Live In?: No Do You Have Trouble Paying Your Heating Or Electricity Bill?: No Do You Have Trouble Paying For Medicines?: No Are You Currently Unemployed and Looking for Work?: No Highest Level of Education Completed: Trade/Vocational Certific Do You Have Trouble With Childcare or the Care of a Family Member?: No Exam - Vital Signs Vital Signs - 24 hr 12/23/23 21:04 12/24/23 05:23 12/24/23 09:30 Temperature 36.1 C L 36.2 C L 36.1 C L Pulse Rate 76 78 72 Respiratory Rate 13 12 18 Blood Pressure 120/74 116/72 111/70 Pulse Oximetry 99 100 98 Oxygen Delivery 12/24/23 09:33 12/24/23 09:35 12/24/23 08:35 Temperature Pulse Rate 76 83 Respiratory Rate Blood Pressure 110/69 125/72 Pulse Oximetry 99 100 Oxygen Delivery Room Air 12/24/23 11:20 12/24/23 11:36 12/24/23 12:36 Temperature 36.3 C L 36.5 C 36.4 C Pulse Rate 77 77 79 Re
[2023-12-24] MEDS: methylPREDNISolone SOD SUCC 125 MG VIAL 80 MG IV PUSH (20:30)
[2023-12-24 20:45] LABS: Glucose Point of Care 268 mg/dl (65-105)
[2023-12-25] VITALS (9 sets, daily range): BP systolic 109–128; BP diastolic 74–87; PULSE 75–95; RESP 16–18; TEMP 36–36.6; O2SAT 98–100
[2023-12-25] MEDS: CENTRAL LINE FLUSH 10 ML IV PUSH ×3 (06:10→20:43)
[2023-12-25] MEDS: LEVOTHYROXINE SODIUM 25 MCG TABLET BY MOUTH (06:10)
[2023-12-25] MEDS: LEVOTHYROXINE SODIUM 12.5 MCG TABLET BY MOUTH (06:10)
[2023-12-25 06:26] LABS: Basophils Percent Auto 0.2 % (0.2-1.2); Eosinophils Percent Auto 0.1 % (0-4.4); Hematocrit 24.9 % (42.0-52.0); Hemoglobin 8.4 g/dL (14.0-18.0); Immature Granulocyte Absolute 0.17 K/mm3 (0.00-0.031); Lymphocytes Absolute Auto 1.24 K/mm3 (0.9-3.2); Lymphocytes Percent Auto 7.2 % (18.3-44.2); Mean Corpuscular HGB Conc 33.7 g/dl (32-36); Mean Corpuscular Hemoglobin 28.7 pg (26-34); Monocytes Absolute Auto 0.4 K/mm3 (0.1-0.6); Monocytes Percent Auto 2.3 % (2.6-8.5); Neutrophils Absolute Auto 15.3 K/mm3 (1.3-6.7); Neutrophils Percent Auto 89.2 % (45.5-73.1); Platelet Count Result 127 k/mm3 (150-375); Red Blood Count 2.93 M/mm3 (4.6-6.20); Red Cell Distribution Width 15.5 % (11.5-14.5); White Blood Count 17.1 K/mm3 (4.5-10.0)
[2023-12-25 06:36] LABS: Albumin Level 2.8 g/dL (3.5-5.1); Anion Gap 11 mmol/L (4-12); Blood Urea Nitrogen 83 mg/dL (9-20); Carbon Dioxide 22 mmol/L (22-30); Chloride 101 mmol/L (98-107); Estimated CRCL calculation 22 ml/min; Estimated Glomerular Filt Rate 13; Glucose 78 mg/dL (65-110); Magnesium 1.8 mg/dL (1.6-2.3); Phosphorus 4.6 mg/dL (2.5-4.5); Potassium 3.6 mmol/L (3.4-5.0); Sodium 134 mmol/L (137-145)
[2023-12-25 07:34] LABS: Glucose Point of Care 78 mg/dl (65-105)
[2023-12-25] MEDS: LORATADINE 10 MG TABLET PO ×2 (09:19→20:43)
[2023-12-25] MEDS: MAGNESIUM OXIDE 200 MG TABLET PO ×2 (09:19→20:43)
[2023-12-25] MEDS: SODIUM BICARBONATE TAB 650 MG TABLET 1300 MG PO ×2 (09:19→17:04)
[2023-12-25] MEDS: CEFDINIR 300 MG CAPSULE PO (09:21)
[2023-12-25] MEDS: INSULIN GLARGINE (*BKC) 100 UNITS/ML 40 UNITS SUB-Q ×2 (09:22→20:42)
[2023-12-25] MEDS: methylPREDNISolone SOD SUCC 125 MG VIAL 80 MG IV PUSH ×2 (09:23→20:42)
--- NOTE | 2023-12-25 10:42 | PM.PNNEP ---
Progress Note: A&P Assessment and Plan (1) Acute kidney injury: Code(s): N17.9 - Acute kidney failure, unspecified Status: Acute Assessment and Plan: improvement noted with reasonable urine output normal renal function/creatinine prior November 2023 hospitalization at [facility] SAMANTHA/ARF last month during November 2023 hospital stay - records reviewed admission creatinine 0.92mg/dl peaked/platueaed at 3.03mg/dl insult thought to be multifactorial ATN from prerenal factors, contrast exposure, hypotension, and possibly vancomycin by time of discharge (12/05/23), creatinine was down to 2.55mg/dl outpatient labs done on 12/14/23 demonstrated at creatinine of 1.45mg/dl admission creatinine here noted to be 3.3mg/dl etiology not clear; several possibilities including: prerenal factors relative hypotension possible infection (UTI?) drug reaction/AIN (Vancomycin? chemotherapy?) other(?) evaluation to date noted: Abd/Pelvis CT without obstruction/hydro renal ultrasound also without obstruction urine electrolytes non-prerenal urine eosinophils negative; no peripheral eosinophilia (but ++ rash) nephrotic range proteinuria CPK okay on further review of records, it would seems his SAMANTHA last month and currently seems to follow his cycle of chemotherapy every 21 days, specifically the use of nivolumab and ipilimumab upon further investigation, these medications have been associated with SAMANTHA/ARF for a variety of reasons including acute interstitial nephritis (did he have AIN on his hospitalization at [facility]?) serological evaluation pending empirically started on steroids given worsening rash on 12/21/23 -- his may help if it is from the immune checkpoint inhibitors or if it is from the vancomycin. renal scan showed poor uptake and also poor excretion - not consistent with ATN per se. follow trend of repeat labs and UOP (2) Metabolic acidosis: Code(s): E87.20 - Acidosis, unspecified Status: Acute Assessment and Plan: likely due to SAMANTHA/ARF started oral sodium bicarbonate to compensate. CO2 levels improving can likely d/c if renal function continues to improve (3) Anemia: Code(s): D64.9 - Anemia, unspecified Status: Acute Assessment and Plan: related to SAMANTHA/ARF as well as underlying malignancy follow trend of H/H PRBC transfusion per protocol (4) Hyponatremia: Code(s): E87.1 - Hypo-osmolality and hyponatremia Status: Acute Assessment and Plan: presumaby secondary to #1 underlying malignancy maybe playing a role sodium on 12/14/23 labs was 132mmol/L relatively stable follow trend (5) Acute UTI: Code(s): N39.0 - Urinary tract infection, site not specified Status: Acute Assessment and Plan: admission UA suggestive follow culture results - culture so far negative on antibiotics (6) Metastatic melanoma: Code(s): C43.9 - Malignant melanoma of skin, unspecified Status: Chronic Assessment and Plan: follows with Oncology (Dr. Cullen) Hem/Onc recommendations noted on chemotherapy as an outpatient Would not be opposed to discharge from renal perspective if kidney function/creatinine continues to improve -- will likely need steroid taper on discharge. Will continue to follow. Subjective Date/time seen: 12/25/23 10:42 Interval history: Follow-up for acute kidney injury/acute renal failure. Overall, he states he is feeling significantly better; renal function continues to improve with current interventions/therapy; Hgb better s/p PRBC transfusion and platelet count improving as well; continues to make reasonable urine output with stability if not improvement in electrolytes; no other acute issues/complaints voiced at the time of my visit. Exam Narrative: General: middle aged WD/WN male in NAD Heart: normal S1 and S2; no rub Lungs: clear to
--- NOTE | 2023-12-25 10:42 | P.PNNP_ITS ---
Progress Note: A&P Assessment and Plan (1) Acute kidney injury: Code(s): N17.9 - Acute kidney failure, unspecified Status: Acute Assessment and Plan: * improvement noted with reasonable urine output * normal renal function/creatinine prior November 2023 hospitalization at [facility] * SAMANTHA/ARF last month during November 2023 hospital stay - records reviewed * admission creatinine 0.92mg/dl * peaked/platueaed at 3.03mg/dl * insult thought to be multifactorial ATN from prerenal factors, contrast exposure, hypotension, and possibly vancomycin * by time of discharge (12/05/23), creatinine was down to 2.55mg/dl * outpatient labs done on 12/14/23 demonstrated at creatinine of 1.45mg/dl * admission creatinine here noted to be 3.3mg/dl * etiology not clear; several possibilities including: * prerenal factors * relative hypotension * possible infection (UTI?) * drug reaction/AIN (Vancomycin? chemotherapy?) * other(?) * evaluation to date noted: * Abd/Pelvis CT without obstruction/hydro * renal ultrasound also without obstruction * urine electrolytes non-prerenal * urine eosinophils negative; no peripheral eosinophilia (but ++ rash) * nephrotic range proteinuria * CPK okay * on further review of records, it would seems his SAMANTHA last month and currently seems to follow his cycle of chemotherapy every 21 days, specifically the use of nivolumab and ipilimumab * upon further investigation, these medications have been associated with SAMANTHA/ARF for a variety of reasons including acute interstitial nephritis (d id he have AIN on his hospitalization at [facility]?) * serological evaluation pending * empirically started on steroids given worsening rash on 12/21/23 -- his may help if it is from the immune checkpoint inhibitors or if it is from the vancomycin. * renal scan showed poor uptake and also poor excretion - not consistent with ATN per se. * follow trend of repeat labs and UOP (2) Metabolic acidosis: Code(s): E87.20 - Acidosis, unspecified Status: Acute Assessment and Plan: * likely due to SAMANTHA/ARF * started oral sodium bicarbonate to compensate. * CO2 levels improving * can likely d/c if renal function continues to improve (3) Anemia: Code(s): D64.9 - Anemia, unspecified Status: Acute Assessment and Plan: * related to SAMANTHA/ARF as well as underlying malignancy * follow trend of H/H * PRBC transfusion per protocol (4) Hyponatremia: Code(s): E87.1 - Hypo-osmolality and hyponatremia Status: Acute Assessment and Plan: * presumaby secondary to #1 * underlying malignancy maybe playing a role * sodium on 12/14/23 labs was 132mmol/L * relatively stable * follow trend (5) Acute UTI: Code(s): N39.0 - Urinary tract infection, site not specified Status: Acute Assessment and Plan: * admission UA suggestive * follow culture results - culture so far negative * on antibiotics (6) Metastatic melanoma: Code(s): C43.9 - Malignant melanoma of skin, unspecified Status: Chronic Assessment and Plan: * follows with Oncology (Dr. Cullen) * Hem/Onc recommendations noted * on chemotherapy as an outpatient Would not be opposed to discharge from renal perspective if kidney function/creatinine continues to improve -- will likely need steroid taper on discharge. Will continue to follow. Subjective Date/time seen: 12/25/23 10:42 Interval history: Follow
--- NOTE | 2023-12-25 11:27 | PM.IMPN ---
Progress Note: A&P Assessment and Plan (1) Transaminitis: Code(s): R74.01 - Elevation of levels of liver transaminase levels Status: Acute (2) Thrombocytopenia: Code(s): D69.6 - Thrombocytopenia, unspecified Status: Acute (3) Metabolic acidosis: Code(s): E87.20 - Acidosis, unspecified Status: Acute (4) Anemia: Code(s): D64.9 - Anemia, unspecified Status: Acute (5) Diabetes: Code(s): E11.9 - Type 2 diabetes mellitus without complications Status: Acute (6) Metastatic melanoma: Code(s): C43.9 - Malignant melanoma of skin, unspecified Status: Chronic (7) Hypokalemia: Code(s): E87.6 - Hypokalemia Status: Acute (8) Hyponatremia: Code(s): E87.1 - Hypo-osmolality and hyponatremia Status: Acute Plan # debility -with weakness and split-level home will have PT OT consulted # acute kidney injury, improving - attributed to his chemotherapy likely immune mediated - patient is making urine, creatinine down trending to 4.6, nephrology consult following - appreciate Nephrology consult: On bicarb, holding off dialysis as he is making urine - creatinine continues to improve significantly daily # thrombocytopenia, anemia -patient has anemia and thrombocytopenia likely secondary to chemotherapy ( he appears not to be tolerating the chemotherapy also with his kidney failure) -Petechiae improving, platelets improved to 127k -hemoglobin improved from 6.9 to 8.4 after 1 unit packed red blood cells on 12/23 -persistent leukocytosis from steroids, WBC is 17k -appreciate Hematology Oncology consultation: solu medrol for concern for ITP and glomerulonephritis -steroids increased to 80 mg q.12 hours IV Solu-Medrol, plan to discharge likely tomorrow on p.o. prednisone 60 mg twice daily # metastatic melanoma - Patient on 3 rounds of chemotherapy, may discontinue altogether considering his complications - patient to follow-up with Hematology-Oncology Dr. Owusu # fever of unknown origin, resolved -patient completed 1 week of antibiotics Rocephin/cefdinir -persistent leukocytosis from steroids - no source of fever identified, may be secondary to cancer - blood cultures no growth today # electrolyte imbalances - sodium up to 134, potassium 3.6, chloride 101, calcium 7.0 - stable # chronic conditions -Allergies: Claritin -hypothyroidism: Levothyroxine -Insulin dependent type 2 diabetes: Glargine 40 units q.12 hours, sliding scale insulin, Accu-Cheks a.c. HS, hypoglycemia protocol Diet: diabetic diet DVT prophylaxis: SCDs, no chemoprophylaxis with thrombocytopenia and anemia Code status: Full code Disposition: home tomorrow Time Spent With Patient Time: 35 minutes Subjective Date/time seen: 12/25/23 11:27 Interval history: Patient seen examined. He appears to be doing much better today. Platelets are improving up to 127, hemoglobin stable 8.4 after transfusion yesterday, WBC 17.1 Solu-Medrol. His LFTs are better, creatinine continues to improve down to 4.6. Anticipate discharge in next day or 2. Will have PT OT consult today. Hematology-Oncology had placed Solu-Medrol for possible ITP or glomerulonephritis. Patient denies fever, chills, nausea vomiting, diarrhea. His petechiae are improved. Review of Systems Review of Systems: 10 point ROS complete, negative other than what is specified in HPI. Exam Narrative: - GENERAL: pleasant male in no acute distress - EYES: EOMI. Anicteric. - HENT: Moist mucous membranes. - LUNGS: Clear to auscultation bilaterally, no wheezing, rhonchi, or rales. - CARDIOVASCULAR: Regular rate and rhythm. No murmur. No JVD. - ABDOMEN: Soft, non-tender and non-distended. No palpable masses. - EXTREMITIES: No edema. Peripheral pulses 2+. Non-tender. large mass/inguinal lymph node - NEUROLOGIC: No focal neurological deficits. CN II-XII grossly intact. - PSYCHIATRIC: Awake, Alert and orient
[2023-12-25 11:35] LABS: Glucose Point of Care 197 mg/dl (65-105)
[2023-12-25 12:09] LABS: ANCA Screen NEGATIVE (NEGATIVE)
[2023-12-25 16:18] LABS: Anti Glomerular Basement Memb <1.0 AI
[2023-12-25 16:46] LABS: Glucose Point of Care 259 mg/dl (65-105)
[2023-12-25] MEDS: INSULIN ASPART (*BKC) 100 UNITS/ML SUB-Q (17:04)
[2023-12-25 20:36] LABS: Glucose Point of Care 222 mg/dl (65-105)
[2023-12-25] MEDS: SENNA/DOCUSATE SODIUM TABLET 1 TAB PO (20:43)
[2023-12-25] MEDS: HEPARIN SODIUM LOCK FLUSH 500 UNITS/5 ML SYRINGE IV PUSH (21:58)
[2023-12-26] MEDS: LEVOTHYROXINE SODIUM 12.5 MCG TABLET BY MOUTH (05:19)
[2023-12-26] MEDS: LEVOTHYROXINE SODIUM 25 MCG TABLET BY MOUTH (05:19)
[2023-12-26] MEDS: CENTRAL LINE FLUSH 10 ML IV PUSH ×2 (05:21→12:04)
[2023-12-26 05:38] VITALS: BP 118/69; PULSE 82; RESP 18; TEMP 36.7; O2SAT 99
[2023-12-26 08:00] VITALS: PULSE 82; RESP 18; O2SAT 99
[2023-12-26 08:12] VITALS: O2SAT 99
[2023-12-26 08:23] LABS: Glucose Point of Care 64 mg/dl (65-105)
[2023-12-26 08:23] LABS: Glucose Point of Care 63 mg/dl (65-105)
--- NOTE | 2023-12-26 08:27 | PC.NURSE ---
BS lower this AM. Pt states I'm fine. Denies need for intervention stating he would just like some juice as breakfast is almost delivered. Also, he states he is afraid of making his next lab too high. Juice and crackers provided per pt request.
[2023-12-26 09:11] LABS: Glucose Point of Care 102 mg/dl (65-105)
[2023-12-26] MEDS: MAGNESIUM OXIDE 200 MG TABLET PO (09:35)
[2023-12-26] MEDS: LORATADINE 10 MG TABLET PO (09:35)
[2023-12-26 09:36] LABS: Basophils Absolute Auto 0.1 K/mm3 (0.0-0.1); Basophils Percent Auto 0.3 % (0.2-1.2); Eosinophils Absolute Auto 0.1 K/mm3 (0-0.3); Eosinophils Percent Auto 0.3 % (0-4.4); Hematocrit 27.6 % (42.0-52.0); Hemoglobin 9.2 g/dL (14.0-18.0); Immature Granulocyte Absolute 0.45 K/mm3 (0.00-0.031); Immature Granulocyte Percent A 2.4 % (0-0.5); Lymphocytes Absolute Auto 1.21 K/mm3 (0.9-3.2); Lymphocytes Percent Auto 6.6 % (18.3-44.2); Mean Corpuscular HGB Conc 33.3 g/dl (32-36); Mean Corpuscular Hemoglobin 28.7 pg (26-34); Mean Platelet Volume 9.6 fl (7.4-10.4); Monocytes Absolute Auto 0.6 K/mm3 (0.1-0.6); Monocytes Percent Auto 3.2 % (2.6-8.5); Neutrophils Absolute Auto 16.1 K/mm3 (1.3-6.7); Neutrophils Percent Auto 87.2 % (45.5-73.1); Platelet Count Result 169 k/mm3 (150-375); Red Blood Count 3.21 M/mm3 (4.6-6.20); Red Cell Distribution Width 15.6 % (11.5-14.5); White Blood Count 18.4 K/mm3 (4.5-10.0)
--- NOTE | 2023-12-26 09:38 | PM.DS ---
DS: Admitting Diagnosis Discharge Date 12/26/2023 0900 Admitting Diagnosis ITP DS: Discharge Diagnosis Discharge Diagnosis (1) Transaminitis: Code(s): R74.01 - Elevation of levels of liver transaminase levels Status: Acute (2) Thrombocytopenia: Code(s): D69.6 - Thrombocytopenia, unspecified Status: Acute (3) Metabolic acidosis: Code(s): E87.20 - Acidosis, unspecified Status: Acute (4) Anemia: Code(s): D64.9 - Anemia, unspecified Status: Acute (5) Diabetes: Code(s): E11.9 - Type 2 diabetes mellitus without complications Status: Acute (6) Metastatic melanoma: Code(s): C43.9 - Malignant melanoma of skin, unspecified Status: Chronic (7) Hypokalemia: Code(s): E87.6 - Hypokalemia Status: Acute (8) Hyponatremia: Code(s): E87.1 - Hypo-osmolality and hyponatremia Status: Acute Plan # debility -with weakness and split-level home will have PT OT consulted # acute kidney injury, improving - attributed to his chemotherapy likely immune mediated - patient is making urine, creatinine down trending to 4.6, nephrology consult following - appreciate Nephrology consult: On bicarb, holding off dialysis as he is making urine - creatinine continues to improve significantly daily # thrombocytopenia, anemia -patient has anemia and thrombocytopenia likely secondary to chemotherapy ( he appears not to be tolerating the chemotherapy also with his kidney failure) -Petechiae improving, platelets improved to 127k -hemoglobin improved from 6.9 to 8.4 after 1 unit packed red blood cells on 12/23 -persistent leukocytosis from steroids, WBC is 17k -appreciate Hematology Oncology consultation: solu medrol for concern for ITP and glomerulonephritis -steroids increased to 80 mg q.12 hours IV Solu-Medrol, plan to discharge likely tomorrow on p.o. prednisone 60 mg twice daily # metastatic melanoma - Patient on 3 rounds of chemotherapy, may discontinue altogether considering his complications - patient to follow-up with Hematology-Oncology Dr. Owusu # fever of unknown origin, resolved -patient completed 1 week of antibiotics Rocephin/cefdinir -persistent leukocytosis from steroids - no source of fever identified, may be secondary to cancer - blood cultures no growth today # electrolyte imbalances - sodium up to 134, potassium 3.6, chloride 101, calcium 7.0 - stable # chronic conditions -Allergies: Claritin -hypothyroidism: Levothyroxine -Insulin dependent type 2 diabetes: Glargine 40 units q.12 hours, sliding scale insulin, Accu-Cheks a.c. HS, hypoglycemia protocol Diet: diabetic diet DVT prophylaxis: SCDs, no chemoprophylaxis with thrombocytopenia and anemia Code status: Full code Disposition: home tomorrow DS: Summary Hospital Course Hospital Course: Patient is a 53-year-old male with a past medical history of diabetes mellitus, skin cancer who presented to the ED via, vomiting and dizziness. Patient did note to have an SAMANTHA creatinine on presentation was 3.10 did peak at 7.40 and has been trending down currently at 3.30. Nephrology has also been consulted patient has been started on bicarb. He is on chemotherapy which does correlate with SAMANTHA for him. Oncology was also consulted as he did come in with anemia and ITP. Patient was initiated on Solu-Medrol which increased to 80 mg b.i.d.. Patient also received 1 unit of packed red blood cells and hemoglobin had responded currently at 9.2. Hemoglobin did get as low as 6.9. Patient does also have leukocytosis however has been getting IV steroids. Patient denies any current chest pain, shortness a breath, nausea, vomiting, diarrhea constipation. At this time patient is stable for discharge and is ready will have the patient get repeat labs in 1 week in follow-up with Nephrology. Patient will also follow up with his oncologist for further instructions as well. Currently patient is denying
[2023-12-26] MEDS: methylPREDNISolone SOD SUCC 125 MG VIAL 80 MG IV PUSH (09:39)
[2023-12-26] MEDS: SODIUM BICARBONATE TAB 650 MG TABLET 1300 MG PO (09:40)
[2023-12-26] MEDS: INSULIN GLARGINE (*BKC) 100 UNITS/ML 40 UNITS SUB-Q (09:41)
[2023-12-26 09:47] LABS: Anion Gap 12 mmol/L (4-12); Blood Urea Nitrogen 75 mg/dL (9-20); Calcium 7.5 mg/dL (8.4-10.2); Carbon Dioxide 23 mmol/L (22-30); Chloride 102 mmol/L (98-107); Estimated CRCL calculation 31 ml/min; Estimated Glomerular Filt Rate 20; Glucose 128 mg/dL (65-110); Magnesium 1.7 mg/dL (1.6-2.3); Potassium 3.5 mmol/L (3.4-5.0); Sodium 137 mmol/L (137-145)
[2023-12-26 10:48] LABS: Heparin Induced Platelet Antib Weak Positive (Negative)
[2023-12-26 12:01] LABS: Glucose Point of Care 147 mg/dl (65-105)
[2023-12-26] MEDS: HEPARIN SODIUM LOCK FLUSH 500 UNITS/5 ML SYRINGE IV PUSH (12:05)
== END 2023-12-26 12:11 | disposition home or self-care (01) | DRG 683 ==
LOC: ANHED 10:10 → ANH3MEDSUR 13:18
PROVIDERS: Family Medicine; Internal Medicine Nephrology; Nurse Practitioner; Physician Assistant; Admitting Provider Internal Medicine; Emergency Provider Emergency Medicine; PCP Emergency Medicine; Visit Provider Nurse Practitioner
DX: N17.8 Other acute kidney failure (principal); C77.4 Secondary and unspecified malignant neoplasm of inguinal and lower limb lymph nodes; E87.1 Hypo-osmolality and hyponatremia; E87.21 Acute metabolic acidosis; D69.3 Immune thrombocytopenic purpura; D69.59 Other secondary thrombocytopenia; T45.1X5A Adverse effect of antineoplastic and immunosuppressive drugs, initial encounter; D64.81 Anemia due to antineoplastic chemotherapy; D63.0 Anemia in neoplastic disease; C43.9 Malignant melanoma of skin, unspecified; N05.9 Unspecified nephritic syndrome with unspecified morphologic changes; E83.42 Hypomagnesemia; E11.9 Type 2 diabetes mellitus without complications; E87.6 Hypokalemia; E03.9 Hypothyroidism, unspecified; G47.33 Obstructive sleep apnea (adult) (pediatric)
CPT/HCPCS: 36415; 36430; 71045; 74176; 76775; 78707; 80048; 80053; 80069; 80076; 81001; 82010; 82274; 82550; 82570; 82607; 82728; 82746; 82948; 83010; 83036; 83520; 83540; 83550; 83605; 83615; 83690; 83735; 83883; 84100; 84145; 84155; 84156; 84165; 84166; 84300; 84439; 84443; 84484; 84540; 85025; 85046; 85055; 85999; 86022; 86036; 86038; 86039; 86160; 86225; 86235; 86704; 86706; 86850; 86900; 86901; 86920; 87040; 87070; 87086; 87088; 87340; 87651; 96361; 96365; 97161; 97165; 97535; 99285; A9270; A9562; G0378; J0696; J1642; J1815; J2919; J3475; J3480; J7030; J7040; J7050; P9016

== ENCOUNTER 2024-01-11 18:03 | Emergency (ER) | payer BC, SELFPAY ==
[2024-01-11] VITALS (11 sets, daily range): BP systolic 119–139; BP diastolic 76–84; PULSE 76–94; RESP 17–20; TEMP 36.2–36.4; O2SAT 95–99
--- NOTE | ~2024-01-11 | XR_ITS ---
XR chest 1V portable 01/12/2024 00:29 Indication: Evaluate for pneumonia Procedure: AP portable chest Comparison: 12/21/2023 Findings: Heart size normal. No focal air space disease, pulmonary edema, pleural effusion or suspect ed pneumothorax. Central venous catheter tip in the SVC. Impression: 1: No acute cardiopulmonary disease. Reviewed, dictated and finalized at location B. Impression: 1: No acute cardiopulmonary disease.
--- NOTE | 2024-01-11 18:36 | ED.MALEGU ---
HPI - Male Genitourinary General Chief complaint: Urogenital-Male <Paula Oliver PA-C - Last Filed: 01/20/24 15:08> Stated complaint: urinary symptoms <Paula Oliver PA-C - Last Filed: 01/20/24 15:08> Time Seen by Provider: 01/11/24 18:37 <Paula Oliver PA-C - Last Filed: 01/20/24 15:08> Focused HPI: This is a 53-year-old male that presents to the emergency department for difficulty urinating. Ongoing over the last couple of days. Associated with constipation and low-grade fevers. Reports recently being admitted to another hospital for acute kidney failure. GENERAL: Well-appearing, well-nourished, and in no acute distress. HEAD: Normocephalic, atraumatic. CHEST: Clear to auscultation. ?No respiratory distress. HEART: Regular rate and rhythm.? NEURO: ?Alert and oriented x3. Patient screened in triage and initial orders placed.? ?Additional care and disposition to be based upon?diagnostic testing and treatment. <Paula Oliver PA-C - Last Filed: 01/20/24 15:08> History of Present Illness HPI Narrative: Agree with the above with the following additions/corrections: Patient has a history of metastatic melanoma. Has previously been on Opdivo/nivolumab but didn't respond to this medication. Started on Ipilimumab/Yervoy infusions q3 weeks (last 12/13) but this caused kidney failure and elevated LFTs as well as a rash. This medication was discontinued after these issues and he is due to follow up with his oncologist Dr Owusu at [facility] on 01/18/24 to determine next steps/therapies though likely just await clinical trial. PET scan at [facility] yesterday. Upcoming surgery to remove a tumerous lymphnode in groin 01/22/24. Patient has felt dizzy and was having urinary frequency and premature urination, not to the point of incontinence but barely getting to the toilet in time. No dysuria. No cough. He is hoping for reassurance that his kidney and liver tests are ok. He had a low grade /borderline fever of 100.2F associated with chills. He was also constipated earlier associated with abdominal pain but then he had a bowel movement today and felt better. <Deysi Canela MD - Last Filed: 01/14/24 10:17> Related Data Home medications: Home Medications Medication Instructions Recorded Confirmed insulin glargine 100 unit/mL (3 15 unit subcut DAILY 01/16/24 01/16/24 mL) subcutaneous pen (Lantus Solostar U-100 Insulin) <Paula Oliver PA-C - Last Filed: 01/20/24 15:08> Allergies/Adverse reactions: Allergies Allergy/AdvReac Type Severity Reaction Status Date / Time amoxicillin Allergy Unknown rash Verified 01/15/24 20:34 minocycline Allergy Unknown swelling Verified 01/15/24 20:34 Penicillins Allergy Unknown Urticaria Verified 01/15/24 20:34 vancomycin Allergy Unknown Rash Verified 01/15/24 20:34 ipilimumab Allergy Cramping Verified 01/15/24 20:34 of the Muscles <Paula Oliver PA-C - Last Filed: 01/20/24 15:08> [facility] Past Medical History Medical History: Medical History Diabetes GERD (gastroesophageal reflux disease) Metastatic melanoma EJ (obstructive sleep apnea) <Paula Oliver PA-C - Last Filed: 01/20/24 15:08> Surgical History Surgical History: Surgical History History of excision of lesion History of sentinel lymph node dissection <Paula Oliver PA-C - Last Filed: 01/20/24 15:08> Family History Family History: Family History Other Adopted <Paula Oliver PA-C - Last Filed: 01/20/24 15:08> Social History Social History: Social History Social History: Patient is full code status and elects his Tomer Latif to be his surrogate decision maker if needed. Smoking status: Never smoker Alcohol in
[2024-01-11 20:47] LABS: Hematocrit 23.9 % (42.0-52.0); Hemoglobin 7.8 g/dL (14.0-18.0); Mean Corpuscular HGB Conc 32.6 g/dl (32-36); Mean Corpuscular Hemoglobin 29.2 pg (26-34); Mean Corpuscular Volume 89.5 fl (80-100); Mean Platelet Volume 9.4 fl (7.4-10.4); Platelet Count Result 118 k/mm3 (150-375); Red Blood Count 2.67 M/mm3 (4.6-6.20); Red Cell Distribution Width 17.2 % (11.5-14.5); White Blood Count 27.8 K/mm3 (4.5-10.0)
[2024-01-11 20:55] LABS: Appearance Urine Clear (Clear); Bacteria Urine None Seen /hpf; Bilirubin Urine Negative (Negative); Blood Urine Negative (Negative); Color Urine Yellow (Yellow); Glucose Urine UA Trace mg/dL (Negative); Ketones Urine Negative (Negative); Leukocyte Esterase Ur Negative LEU/UL (Negative); Need Manual Microscopic Reviewed; Nitrate Urine Negative (Negative); Non Pathogenic Casts 0-2; Protein Urine Trace mg/dL (Negative); RBC Urine 0-2 /hpf (0-2); Specific Grav Ur 1.005 (1.001-1.035); Squamous Epithelial Cell Urine None Seen /hpf (Few); Urobilinogen Urine 0.2 mg/dL (<2.0); WBC Urine 0-5 /hpf (0-3)
[2024-01-11 21:03] LABS: Alanine Aminotransferase 138 U/L (6-50); Albumin Level 3.1 g/dL (3.5-5.1); Alkaline Phosphatase 457 U/L (38-126); Anion Gap 7 mmol/L (4-12); Aspartate Amino Transferase 51 U/L (17-59); Bilirubin,Total 0.9 mg/dL (0.2-1.3); Blood Urea Nitrogen 22 mg/dL (9-20); Calcium 7.9 mg/dL (8.4-10.2); Carbon Dioxide 26 mmol/L (22-30); Chloride 99 mmol/L (98-107); Estimated CRCL calculation 72 ml/min; Estimated Glomerular Filt Rate 53; Glucose 184 mg/dL (65-110); Potassium 3.5 mmol/L (3.4-5.0); Sodium 132 mmol/L (137-145)
[2024-01-11 21:17] LABS: Add Urine Microscopic? YES
[2024-01-11 21:25] LABS: Anisocytosis 1+; Band Neutrophils Percent 2 % (0-6); Hypochromasia 1+; Lymphocytes Absolute Manual 1.11 K/mm3 (1.1-4.5); Microcytosis 1+ (NORMAL); Monocytes Absolute Manual 0.55 K/mm3 (0.1-0.90); Monocytes Percent Manual 2 % (3-9); Neutrophils Absolute Manual 26.13 K/mm3 (1.3-6.7); Neutrophils Percent Manual 92 % (46-73); Platelet Estimate Slightly Decreased (Adequate); Schistocytes None Seen; Total Cells Counted 100
[2024-01-12] VITALS (9 sets, daily range): BP systolic 119–127; BP diastolic 78–82; PULSE 76–90; RESP 15–22; O2SAT 96–100
[2024-01-12] MEDS: SODIUM CHLORIDE 0.9% IV 1,000 ML 999 ML IV CONT (00:12)
[2024-01-12 00:45] LABS: Influenza A QL RT-PCR Negative (Negative); Influenza B QL RT-PCR Negative (Negative); RSV RNA, RT-PCR Negative (Negative); SARS-CoV-2 RNA PCR Negative (Negative)
== END 2024-01-12 01:28 | disposition home or self-care (01) ==
PROVIDERS: Physician Assistant; Emergency Provider Student in an Organized Health Care Education/Training Program; PCP Emergency Medicine
DX: E11.22 Type 2 diabetes mellitus with diabetic chronic kidney disease (principal); N18.9 Chronic kidney disease, unspecified; D72.829 Elevated white blood cell count, unspecified; D64.9 Anemia, unspecified; D69.6 Thrombocytopenia, unspecified; Z20.822 Contact with and (suspected) exposure to COVID-19; C43.9 Malignant melanoma of skin, unspecified; C77.4 Secondary and unspecified malignant neoplasm of inguinal and lower limb lymph nodes; K21.9 Gastro-esophageal reflux disease without esophagitis; G47.33 Obstructive sleep apnea (adult) (pediatric); Z79.84 Long term (current) use of oral hypoglycemic drugs; Z79.899 Other long term (current) drug therapy
CPT/HCPCS: 36415; 71045; 80053; 81001; 85025; 87637; 96360; 99283; J7030

== ENCOUNTER 2024-01-15 16:52 | Inpatient (IN) | payer BC, SELFPAY ==
[2024-01-15] VITALS (10 sets, daily range): BP systolic 106–130; BP diastolic 57–85; PULSE 95–122; RESP 15–22; TEMP 37.3; O2SAT 96–100
--- NOTE | ~2024-01-15 | XR_ITS ---
XR chest 2V DATE: 01/19/2024 18:36 INDICATION: Left lower lobe infiltrate TECHNIQUE: PA and lateral views COMPARISON: 01/17/2024 [place] 0009 hours 01/15/2024 CT abdomen pelvis FINDINGS: Heart size appears borderline. Right Port-A-Cath catheter tip overlies the right atrium. No hilar or mediastinal enlargement. Mild discoid atelectasis at the left lung base. Otherwise no pulmonary infiltrate or consolidation, pleural effusion or pulmonary vascular congestion or pneumothorax is noted. IMPRESSION: Mild discoid atelectasis at the left lung base Right Port-A-Cath catheter tip in right atrium Reviewed, dictated and finalized at location J.
--- NOTE | ~2024-01-15 | XR_ITS ---
EXAMINATION: XR chest 2V DATE: 01/15/2024 20:44 INDICATION: Fever TECHNIQUE: frontal and lateral views of the chest were obtained. COMPARISON: Chest radiograph dated 01/12/2024 FINDINGS: Right subclavian central venous port catheter with distal tip at the high right atrium. No focal airs pace opacities, pulmonary edema, pleural effusion or pneumothorax. Heart size is normal. IMPRESSION: 1. No acute cardiopulmonary disease. Reviewed, dictated and finalized at location A.
--- NOTE | ~2024-01-15 | CT_ITS ---
EXAMINATION: CT abdomen pelvis w con DATE: 01/15/2024 21:20 INDICATION: Fever, nausea and abdominal pain TECHNIQUE: Computed tomography (CT) of the abdomen and pelvis was performed with 100 mL Omnipaque-350 intravenous contrast. Automated exposure control and iterative reconstruction technique were employe d. The dose-length product was 1172.42 mGy-cm. COMPARISON: CT dated 12/19/2023 and chest radiograph dated 01/15/2024 FINDINGS: Mild discoid atelectasis at the lingula. Heart size is normal. Right subclavian central venous port c atheter tip in the right atrium small pericardial effusion. Cholecystectomy clips the gallbladder fos sa. Liver, pancreas, bilateral adrenal glands and right kidney are normal. Unchanged 1.8 cm left tasia l cyst. Splenomegaly measuring 16.5 cm in length. Bladder is normal. Fluid and multiple loops of nond ilated small bowel and the proximal colon consistent with nonspecific diarrhea. Normal appendix. Ther e is been interval decrease in the amount of diffuse edema in the intra-abdominal and pelvic fat. No significant change in a small amount of ascites. Increase in size of a previously 8.9 x 7.0 cm comple x cystic mass with calcific lesions at the left groin which currently measures 12.2 x 9.9 x 10.1 cm n o change in adjacent mild left inguinal lymphadenopathy. Moderate-sized right and small left fat-cont aining inguinal hernias with additional small amount of ascites in the right inguinal hernia. Modera te lumbar and lower thoracic spondylosis. IMPRESSION: 1. Interval increase in size of a previously 8.9 cm, currently 12.2 cm complex cystic left inguinal m ass which is concerning for malignancy in patient with reported history of melanoma. Although enlarge d from the mass appears more cystic which could represent increasing necrosis in response to treatmen t. 2. Nonspecific diarrhea. 3. Decrease in a symmetric diffuse edema in the intra-abdominal and pelvic fat with unchanged small a mount of ascites. 4. Small pericardial effusion. 5. Nonspecific moderate splenomegaly. Reviewed, dictated and finalized at location A. IMPRESSION: 1. Interval increase in size of a previously 8.9 cm, currently 12.2 cm complex cystic left inguinal mass which is concerning for malignancy in patient with re ported history of melanoma. Although enlarged from the mass appears more cystic which could represent increasing necrosis in response to treatment. 2. Nonspecific diarrhea. 3. Decrease in a symmetric diffuse edema in the intra-abdominal and pelvic fat with unchanged small amount of ascites. 4. Small pericardial effusion. 5. Nonspecific moderate splenomegaly.
--- NOTE | ~2024-01-15 | US_ITS ---
EXAMINATION: US renal BI DATE: 01/19/2024 13:07 INDICATION: Acute kidney injury. TECHNIQUE: Multiple ultrasound grayscale images of the kidneys were obtained. COMPARISON: CT abdomen and pelvis 01/15/2024 FINDINGS: The right kidney measures 15.6 x 8.6 x 8.2 cm. The left kidney measures 17.0 x 8.6 x 7.2 cm. The kidn eys demonstrate normal parenchymal echogenicity. There is no hydronephrosis. The bladder is normal. IMPRESSION: 1. Normal kidneys. No hydronephrosis. Reviewed, dictated and finalized at location A.
--- NOTE | ~2024-01-15 | CT_ITS ---
EXAMINATION: CT chest abdomen pelvis wo con DATE: 01/20/2024 20:48 INDICATION: Leukocytosis TECHNIQUE: Computed tomography (CT) of the chest, abdomen and pelvis was performed without intravenou s contrast. Automated exposure control and iterative reconstruction technique were employed. Exam dos e: 1803.20 mGy-cm total exam DLP. COMPARISON: 01/19/2024 2 view chest 01/17/2024 portable AP chest FINDINGS: Right Port-A-Cath, with tip in right atrium. Probable small medial right upper lobe calcified pulmonary granuloma (series 4 image 42). Minimal bilateral dependent lower lobe atelectasis. Small bilateral pleural effusions. Cardiomegaly. Coronary artery calcification. Aortic valve calcification. The ascending aorta measures up to approximately 3.9 cm diameter. The aortic arch measures 3 cm diameter. Small pericardial effusion. No hilar or mediastinal mass lesion or lymphadenopathy is present. No thyroid mass lesion. No axillar y lymphadenopathy. Small sliding hiatal hernia. The liver appears unremarkable. Status post cholecystectomy. No bile duct or pancreatic duct dilatati on. No pancreatic mass lesion or calcification. No splenic mass lesion. There is splenomegaly, spleen measuring up to 16 cm maximal sagittal dimensio n. Normal morphology of the adrenal glands. No renal mass lesion or urinary tract calculus or hydroureteronephrosis is evident. There is moderate diffuse thickening of the urinary bladder wall; rule out cystitis. The prostate gla nd seminal vesicles appear unremarkable. No bowel obstruction or intraperitoneal free air is detected. There is mild ascites with minimal fluid around the liver and in the hepatorenal space and paracolic gutters, with most of the fluid in the pelvic area. There is thickening of the fascial planes including anterior and posterior pararenal and lateral cona l fascia. Edema of the chest, abdominal and pelvic sultana. There is edema of the proximal thighs as well. Fat and fluid containing right inguinal hernia. Fat-containing left inguinal hernia. There is a huge heterogeneous left inguinal, measuring up to 10 x 24 cm. soft tissue mass with scatte red calcifications. No suspicious osteolytic or osteoblastic lesions are noted. IMPRESSION: Right Port-A-Cath in right atrium Cardiomegaly, small bilateral pleural effusions, mild ascites, anasarca Small pericardial effusion Coronary artery calcification Huge left inguinal heterogeneous soft tissue mass with scattered calcifications; consider lymphoma, s arcoma, less likely entity metastasis Splenomegaly Reviewed, dictated and finalized at Location A. Reviewed, dictated and finalized at location J. IMPRESSION: Right Port-A-Cath in right atrium Cardiomegaly, small bilateral pleural effusions, mild ascites, anasarca Small pericardial effusion Coronary artery calcification Huge left inguinal heterogeneous soft tissue mass with scattered calcifications ; consider lymphoma, sarcoma, less likely entity metastasis Splenomegaly
--- NOTE | ~2024-01-15 | US_ITS ---
BILATERAL LOWER EXTREMITY VENOUS ULTRASOUND Ordering provider: Shabnam Nina MD History: . DVT . Comparison: None. FINDINGS: RIGHT LOWER EXTREMITY VEINS: --COMMON FEMORAL: Patent and free of thrombus. Normal compressibility, phasic flow and augmentation. --PROXIMAL SUPERFICIAL FEMORAL: Patent and free of thrombus. Normal compressibility, phasic flow and augmentation. --DISTAL SUPERFICIAL FEMORAL: Patent and free of thrombus. Normal compressibility, phasic flow and au gmentation. --POPLITEAL: Patent and free of thrombus. Normal compressibility, phasic flow and augmentation. --POSTERIOR TIBIAL: Patent and free of thrombus. Normal compressibility, phasic flow and augmentation . LEFT LOWER EXTREMITY VEINS: --COMMON FEMORAL: Patent and free of thrombus. Normal compressibility, phasic flow and augmentation. --PROXIMAL SUPERFICIAL FEMORAL: Patent and free of thrombus. Normal compressibility, phasic flow and augmentation. --DISTAL SUPERFICIAL FEMORAL: Patent and free of thrombus. Normal compressibility, phasic flow and au gmentation. --POPLITEAL: Patent and free of thrombus. Normal compressibility, phasic flow and augmentation. --POSTERIOR TIBIAL: Patent and free of thrombus. Normal compressibility, phasic flow and augmentation . Heterogenous enhancement velocities ultrasound of the echogenicity Left groin mass is noted which nathan sures 11.2 x 8.7 x 11.3 cm. IMPRESSION: Negative bilateral lower extremity venous US. No deep vein thrombosis. Left groin mass is noted which measures 11.2 x 8.7 x 11.3 cm. Reviewed, dictated and finalized at location A.
--- NOTE | ~2024-01-15 | XR_ITS ---
Portable chest x-ray Comparison: 01/15/2024 Clinical History: Change in condition Findings: Right-sided is a central venous line is present. Questionable hazy left basilar airspace d isease. Right lung clear. Cardiomediastinal silhouette is stable. Bones and soft tissues are unremar kable. Impression: Questionable hazy left basilar airspace disease. Correlate for pulmonary edema/atelectasis versus pne umonia. Stable cardiomegaly. Stable support line. Reviewed, dictated and finalized at location M. Impression: Questionable hazy left basilar airspace disease. Correlate for pulmonary edema/ atelectasis versus pneumonia. Stable cardiomegaly. Stable support line.
--- NOTE | 2024-01-15 19:40 | ED.FEVER ---
HPI - Fever General Chief Complaint: Fever Stated Complaint: fever Time Seen by Provider: 01/15/24 19:02 History of Present Illness HPI Narrative: This is a 53-year-old male with a past medical history significant for metastatic melanoma. Today he presents to the emergency room with a chief complaint of generalized malaise and feeling unwell. Patient states that he has been having a fever at home but denies any chills, rigors. Patient states he has been having headache without any vision changes, no abdominal discomfort, no urinary complaints. He has a known inguinal mass on the left lower quadrant that has been getting larger over the past few weeks and is planned to have an outpatient procedure for removal on the 17 of January. He has an appointment in 3 days time for follow-up with his oncologist at [facility]. patient states that he is not having any urinary symptoms such as dysuria, hematuria. Denies any diarrhea or constipation. No dark tarry stools or bright red blood per rectum. No chest pain, shortness of breath, neurological complaints. He is presently not undergoing any kind of chemotherapy and his last cycle was 1 month prior. He states he has had reactions to his chemotherapy before which presents similarly with generalized malaise. On review of the EMR patient was recently seen several days prior and was discharged with an unremarkable workup and improving renal function from his recent admission. Related Data Home Medications Medication Instructions Recorded Confirmed atorvastatin 20 mg tablet 20 mg PO DAILY 12/24/21 12/19/23 metformin 500 mg tablet,extended 1,000 mg PO BID 12/24/21 12/19/23 release 24 hr tadalafil 5 mg tablet 20 mg PO DAILY 12/24/21 12/19/23 ondansetron 8 mg disintegrating 8 mg Q8H PRN Nausea And Vomiting 12/19/23 12/19/23 tablet Allergies Allergy/AdvReac Type Severity Reaction Status Date / Time amoxicillin Allergy Unknown rash Verified 01/15/24 20:34 minocycline Allergy Unknown swelling Verified 01/15/24 20:34 Penicillins Allergy Unknown Urticaria Verified 01/15/24 20:34 vancomycin Allergy Unknown Rash Verified 01/15/24 20:34 ipilimumab Allergy Cramping Verified 01/15/24 20:34 of the Muscles Review of Systems Review of Systems: As reviewed above in the HPI [facility] Past Medical History Medical History Diabetes GERD (gastroesophageal reflux disease) Metastatic melanoma EJ (obstructive sleep apnea) Family History Family History Other Adopted Social History Social History Social History: Patient is full code status and elects his Tomer Latif to be his surrogate decision maker if needed. 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 Awake alert oriented. HEAD: [Normocephalic, atraumatic.] EYES: [PERRLA and EOMI.] Subconjunctival pallor is noted. ENT: Nares clear, no rhinorrhea or epistaxis. Mucous membranes moist. NECK: Supple. CHEST: [Clear to auscultation. No respiratory d
--- NOTE | 2024-01-15 19:41 | ECG_ITS ---
Test Date: 2024-01-15 20:31:29 Measurements Intervals [place] Rate: 94 P: 14 TX: 145 QRS: 8 QRSD: 102 T: 29 QT: 343 QTc: 430 Interpretive Statements SINUS RHYTHM NORMAL ECG No previous ECG available for comparison Electronically Signed On 01-16-2024 06:18:02 CDT by Jonel Recio D.O.
[2024-01-15 20:11] LABS: Hematocrit 21.3 % (42.0-52.0); Mean Corpuscular HGB Conc 32.4 g/dl (32-36); Mean Corpuscular Hemoglobin 29.1 pg (26-34); Mean Corpuscular Volume 89.9 fl (80-100); Mean Platelet Volume 8.7 fl (7.4-10.4); Platelet Count Result 189 k/mm3 (150-375); Red Blood Count 2.37 M/mm3 (4.6-6.20); Red Cell Distribution Width 17.1 % (11.5-14.5); White Blood Count 33.2 K/mm3 (4.5-10.0)
[2024-01-15 20:21] LABS: Lactic Acid Reflex 1.1 mmol/L (0.7-2.0)
[2024-01-15 20:29] LABS: INR 1.2; Prothrombin Time 15.6 Seconds (11.1-14.7)
[2024-01-15 20:30] LABS: Partial Thromboplastin Time 47.3 Seconds (22.3-36.8)
[2024-01-15 20:32] LABS: Hemoglobin 6.9 g/dL (14.0-18.0)
[2024-01-15 20:33] LABS: Band Neutrophils Percent 5 % (0-6); Eosinophils Absolute Manual 0.99 K/mm3 (0.02-0.50); Eosinophils Percent Manual 3 % (0-4); Lymphocytes Absolute Manual 1.66 K/mm3 (1.1-4.5); Lymphocytes Percent Manual 5 % (18-44); Monocytes Absolute Manual 0.66 K/mm3 (0.1-0.90); Monocytes Percent Manual 2 % (3-9); Neutrophils Absolute Manual 29.88 K/mm3 (1.3-6.7); Neutrophils Percent Manual 85 % (46-73); Schistocytes None Seen; Total Cells Counted 100
[2024-01-15 20:36] LABS: Alanine Aminotransferase 91 U/L (6-50); Albumin Level 3.1 g/dL (3.5-5.1); Alkaline Phosphatase 477 U/L (38-126); Anion Gap 10 mmol/L (4-12); Aspartate Amino Transferase 47 U/L (17-59); Blood Urea Nitrogen 17 mg/dL (9-20); Carbon Dioxide 25 mmol/L (22-30); Chloride 96 mmol/L (98-107); Estimated CRCL calculation 63 ml/min; Estimated Glomerular Filt Rate 45; Glucose 95 mg/dL (65-110); Potassium 3.3 mmol/L (3.4-5.0); Sodium 131 mmol/L (137-145)
[2024-01-15 20:37] LABS: Appearance Urine Clear (Clear); Bacteria Urine None Seen /hpf; Bilirubin Urine Negative (Negative); Blood Urine Negative (Negative); Color Urine Yellow (Yellow); Glucose Urine UA Negative (Negative); Ketones Urine Trace mg/dL (Negative); Leukocyte Esterase Ur Trace LEU/UL (Negative); Nitrate Urine Negative (Negative); Protein Urine 1+ mg/dL (Negative); RBC Urine 0-2 /hpf (0-2); Squamous Epithelial Cell Urine None Seen /hpf (Few); Urobilinogen Urine 0.2 mg/dL (<2.0)
[2024-01-15 20:43] LABS: Add Urine Microscopic? YES
[2024-01-15 20:44] LABS: Platelet Estimate Adequate (Adequate)
--- NOTE | 2024-01-15 22:41 | PC.NURSE ---
blood transfusion consent obtained
[2024-01-15] MEDS: diphenhydrAMINE HCl INJ 50 MG/ML VIAL 25 MG IV PUSH (22:47)
[2024-01-15] MEDS: PROCHLORPERAZINE EDISYLATE 10 MG/2 ML VIAL IV PUSH (22:49)
--- NOTE | 2024-01-15 23:53 | PC.NURSE ---
CONF tube sent down by this RN.
[2024-01-16] VITALS (31 sets, daily range): BP systolic 82–125; BP diastolic 48–83; PULSE 95–120; RESP 18–22; TEMP 35.8–39.5; O2SAT 94–100; BMI 31.2
--- NOTE | 2024-01-16 | ECHO_ITS ---
Patient Info Name: Zeke Latif Age: 53 years : 1970 Gender: Male Ht: 73 in Wt: 250 lbs BSA: 2.45 m2 HR: 95 bpm BP: 125 / 71 mmHg Heart Rhythm: Sinus Rhythm Technical Quality: Good Exam Date: 01/16/2024 9:04 AM Exam Location: Echo Lab Patient Status: Outpatient Admit Date: 01/16/2024 Staff Ordering Physician: Shabnam Nina MD Irs Agent: Maritza العلي RDCS Attending Provider: Shabnam Nina MD Referring Physician: Maico JOHNSON; Exam Type: CA echo doppler color flow Study Info Indications - murmur Complete two-dimensional, color flow and Doppler transthoracic echocardiogram is performed. Summary 1. Complete two-dimensional, color flow and Doppler transthoracic echocardiogram is performed. 2. Left ventricular chamber dimension is normal. 3. Left ventricular systolic function is normal, estimated at 65-70%. 4. There is mildly increased left ventricular wall thickness. 5. The left ventricular diastolic function is grade I diastolic dysfunction. 6. There is moderate aortic valve stenosis with a peak velocity of 365 cm/s, mean gradient of 29 mmHg, and aortic valve area of 1.1 cm2. 7. There is moderate aortic valve calcification. 8. There is mild tricuspid valve regurgitation. 9. There is small pericardial effusion. Left Ventricle Left ventricular chamber dimension is normal. Left ventricular systolic function is normal, estimated at 65-70%. There is mildly increased left ventricular wall thickness. The left ventricular diastolic function is grade I diastolic dysfunction. Right Ventricle Right ventricular chamber dimension is normal. Right ventricular systolic function is normal. Left Atria Left atrial chamber dimension is normal. Right Atria Right atrial chamber dimension is normal. Atrial Septum Intact interatrial septum visualized by color flow imaging. Aortic Valve The aortic valve is trileaflet. There is moderate aortic valve stenosis with a peak velocity of 365 cm/s, mean gradient of 29 mmHg, and aortic valve area of 1.1 cm2. There is trace aortic valve regurgitation. There is moderate aortic valve calcification. Pulmonic Valve The pulmonic valve is normal. There is no pulmonic valve stenosis. There is trace pulmonic regurgitation. Mitral Valve The mitral valve has normal leaflets. There is no mitral valve stenosis. There is trace mitral valve regurgitation. Tricuspid Valve The tricuspid valve leaflets are normal. There is no significant tricuspid valve stenosis. There is mild tricuspid valve regurgitation. No pulmonary hypertension, estimated pulmonary arterial systolic pressure is 31 mmHg. Pericardium/Pleural The pericardium appears normal. There is small pericardial effusion. Inferior Vena Cava Normal inferior vena cava with >50% collapse upon inspiration consistent with elevated right atrial pressure, 10 mmHg. Aorta The aortic root size at the sinus of Valsalva is normal. Left Ventricular Outflow Tract Name Value Normal LVOT 2D LVOT Diameter 1.9 cm LVOT Doppler LVOT Peak Velocity 147 cm/s LVOT Peak Gradient 7 mmHg LVOT Mean Gradient 4 mmHg LVOT VTI
[2024-01-16] MEDS: SODIUM CHLORIDE 0.9% IV 250 ML 30 ML IV CONT (00:54)
--- NOTE | 2024-01-16 00:59 | PC.NURSE ---
EDP Dr. Axel HUERTA 1g (1000mg) PO Tylenol for pt fever. Pt has 100.2 temporal scan fever prior to administering blood.
[2024-01-16] MEDS: ACETAMINOPHEN 500 MG TABLET 1000 MG PO ×4 (01:02→22:59)
[2024-01-16] MEDS: SODIUM CHLORIDE 0.9% IV 1,000 ML 999 ML IV CONT ×4 (02:14→22:51)
[2024-01-16] MEDS: CEFEPIME 2 GM/NS 50 ML 2 GM/50 ML BAG IVPB ×3 (02:28→16:59)
--- NOTE | 2024-01-16 02:48 | PM.IMHP ---
H&P: HPI History of Present Illness Date/Time: 01/16/24 02:48 Chief Complaint: FEVER Narrative: This is a 53-year-old male with past medical history significant for melanoma, diagnosed in 2021, patient has had recurrence of melanoma currently patient with metastasis to multiple sites has left inguinal area metastases to local lymph nodes. Patient presents to the emergency room due to fever, patient was found to have necrotic mass in the left inguinal area consistent with physical findings is scheduled for surgery for January 21 for excisional procedure of mass. Patient admitted for further evaluation management and treatment. EXAMINATION: XR chest 2V DATE: 01/15/2024 20:44 INDICATION: Fever TECHNIQUE: frontal and lateral views of the chest were obtained. COMPARISON: Chest radiograph dated 01/12/2024 FINDINGS: Right subclavian central venous port catheter with distal tip at the high right atrium. No focal airspace opacities, pulmonary edema, pleural effusion or pneumothorax. Heart size is normal. IMPRESSION: 1. No acute cardiopulmonary disease. EXAMINATION: CT abdomen pelvis w con DATE: 01/15/2024 21:20 INDICATION: Fever, nausea and abdominal pain TECHNIQUE: Computed tomography (CT) of the abdomen and pelvis was performed with 100 mL Omnipaque-350 intravenous contrast. Automated exposure control and iterative reconstruction technique were employed. The dose-length product was 1172.42 mGy-cm. COMPARISON: CT dated 12/19/2023 and chest radiograph dated 01/15/2024 FINDINGS: Mild discoid atelectasis at the lingula. Heart size is normal. Right subclavian central venous port catheter tip in the right atrium small pericardial effusion. Cholecystectomy clips the gallbladder fossa. Liver, pancreas, bilateral adrenal glands and right kidney are normal. Unchanged 1.8 cm left renal cyst. Splenomegaly measuring 16.5 cm in length. Bladder is normal. Fluid and multiple loops of nondilated small bowel and the proximal colon consistent with nonspecific diarrhea. Normal appendix. There is been interval decrease in the amount of diffuse edema in the intra-abdominal and pelvic fat. No significant change in a small amount of ascites. Increase in size of a previously 8.9 x 7.0 cm complex cystic mass with calcific lesions at the left groin which currently measures 12.2 x 9.9 x 10.1 cm no change in adjacent mild left inguinal lymphadenopathy. Moderate-sized right and small left fat-containing inguinal hernias with additional small amount of ascites in the right inguinal hernia. Moderate lumbar and lower thoracic spondylosis. IMPRESSION: 1. Interval increase in size of a previously 8.9 cm, currently 12.2 cm complex cystic left inguinal mass which is concerning for malignancy in patient with reported history of melanoma. Although enlarged from the mass appears more cystic which could represent increasing necrosis in response to treatment. 2. Nonspecific diarrhea. 3. Decrease in a symmetric diffuse edema in the intra-abdominal and pelvic fat with unchanged small amount of ascites. 4. Small pericardial effusion. 5. Nonspecific moderate splenomegaly. Review of Systems Review of Systems: fever Constitutional: Constitutional: Reports chills and Reports fever(s) Eyes: Eyes: Denies change in vision ENT: Denies dysphagia and Denies odynophagia Cardiovascular: Cardiovascular: Denies chest pain Respiratory: Respiratory: Denies cough Gastrointestinal: Gastrointestinal: Denies abdominal pain, Denies nausea and Denies vomiting Genitourinary: Genitourinary: Denies dysuria Musculoskeletal: Musculoskeletal: Reports myalgias Integumentary/Breasts: Skin/Breast: Reports swelling, Reports erythema and Reports other (L groin mass) Neurologic: Denies focal weakness and Denies Sensory deficit (Neuro) Psychiatric: Psychiatric: Reports no additional psychiatric complaints and Reports as per HPI Endocrine: Endocrine: Denies heat intolerance, Denies moi
--- NOTE | 2024-01-16 03:01 | ADMGEN ---
This patient, Zeke Latif, was admitted to Medical Room 248-. Patient/family oriented to hospital policies and general routines including ID bracelet, bed and alarms, visiting hours, pain management, procedures, bathroom and other care routines, personal items, smoking policy, room service/diet, and visiting hours. Information on how to activate the Rapid Response Team has been discussed. Patient/Family are encouraged to report perceived risks to care and to ask questions if they do not understand what they are told or what they should do.
[2024-01-16] MEDS: LEVOTHYROXINE SODIUM 12.5 MCG TABLET PO (05:21)
[2024-01-16 06:29] LABS: Hematocrit 26.4 % (42.0-52.0); Hemoglobin 8.4 g/dL (14.0-18.0); Mean Corpuscular HGB Conc 31.8 g/dl (32-36); Mean Corpuscular Hemoglobin 28.5 pg (26-34); Mean Corpuscular Volume 89.5 fl (80-100); Mean Platelet Volume 8.5 fl (7.4-10.4); Platelet Count Result 180 k/mm3 (150-375); Red Blood Count 2.95 M/mm3 (4.6-6.20); White Blood Count 34.9 K/mm3 (4.5-10.0)
[2024-01-16 06:40] LABS: Anion Gap 9 mmol/L (4-12); Blood Urea Nitrogen 17 mg/dL (9-20); Calcium 7.6 mg/dL (8.4-10.2); Carbon Dioxide 25 mmol/L (22-30); Chloride 100 mmol/L (98-107); Estimated CRCL calculation 61 ml/min; Estimated Glomerular Filt Rate 45; Glucose 90 mg/dL (65-110); Magnesium 1.8 mg/dL (1.6-2.3); Phosphorus 3.4 mg/dL (2.5-4.5); Potassium 3.4 mmol/L (3.4-5.0); Sodium 134 mmol/L (137-145)
[2024-01-16] MEDS: ONDANSETRON INJ 4 MG/2 ML VIAL IV PUSH ×2 (06:46→22:59)
[2024-01-16 06:48] LABS: NT Pro B Type Natriuretic Pept 1810 pg/mL (19.9-100)
[2024-01-16 07:19] LABS: Band Neutrophils Percent 11 % (0-6); Lymphocytes Absolute Manual 0.34 K/mm3 (1.1-4.5); Neutrophils Absolute Manual 34.55 K/mm3 (1.3-6.7); Neutrophils Percent Manual 88 % (46-73); Total Cells Counted 100
[2024-01-16 07:20] LABS: Platelet Estimate Adequate (Adequate); Schistocytes None Seen
--- NOTE | 2024-01-16 07:31 | P.PNIM_ITS ---
Progress Note: A&P Assessment and Plan (1) UTI (urinary tract infection): Code(s): N39.0 - Urinary tract infection, site not specified Status: Acute Assessment and Plan: 01/16/24: * UA showed 1+ urine protein, trace ketone, trace leukocytes, 6-10 urine wbc's. * Urine and blood cultures were obtained and are pending * Patient continues on cefepime, has noted allergy to vancomycin so this was not started * White blood cell count is 34.9 with left shift and bandemia * T-max 100.7? (2) Leukocytosis: Code(s): D72.829 - Elevated white blood cell count, unspecified Status: Inactive Assessment and Plan: 01/16/24: * Initial white blood cell count 33.2 * Today white blood cell count 34.9 with bandemia and left shift * Likely a secondary to history of melanoma with metastatic disease, versus acute infection such as UTI, versus necrosis of the tumor * Urine and blood cultures were obtained and are pending * Patient is currently on cefepime * Will add doxycycline considering he has vancomycin allergy * T-max 100.7? (3) Anemia: Code(s): D64.9 - Anemia, unspecified Status: Acute Assessment and Plan: 01/16/24: * Likely chronic due to history of melanoma and metastatic disease * Initial hemoglobin 6.9 * Patient receive 1 unit of blood * Hemoglobin this morning 8.4 * Continue to trend (4) Transaminitis: Code(s): R74.01 - Elevation of levels of liver transaminase levels Status: Acute Assessment and Plan: 01/16/24: * Likely secondary to Ipilimumab/Yervoy infusions * AST 47, ALT 91 which is showing improvement/downtrend (5) Chronic fatigue and malaise: Code(s): R53.82 - Chronic fatigue, unspecified; R53.81 - Other malaise Status: Acute Assessment and Plan: 01/16/24: * Likely secondary to metastatic cancer and ongoing fever (6) 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 Ventura at [facility] * He then started Ipilimumab/Yervoy infusions [id number] with the last infusion on 12/14/23 but this medication caused acute kidney failure and elevated LFTs with associated rash. He was seen and treated at an outside hospital initially. He was discontinued on Ipilimumab/Yervoy after these issues. * Patient is due to follow-up with Dr. Ventura on the with a planned procedure on 21 of January for removal of the lymph node * CT of the abdomen shown an increase in size of the left inguinal mass, currently 12.2 cm which is up from the 8.[address] scans. (7) Diabetes: Code(s): E11.9 - Type 2 diabetes mellitus without complications Status: Chronic Assessment and Plan: 01/16/24: * Blood sugars ranging 90 to 107 * Hemoglobin A1c was 8.9 * Accu checks AC/HS * Low-dose SSI ordered * hypoglycemic protocol in place * Diabetic diet ordered Time Spent With Patient Time with patient: Greater than 35 minutes Subjective Date/time seen: 01/16/24 07:31 Interval history: Interval history: This is a 53-year-old male with a significant past medical history metastatic melanoma who presented to the hospital with fever. Patient has a left inguinal mass in the left lower quadrant that has increased in size over the past few weeks and he originally plans to have an outpatient procedure on January 17 for removal. He is followed by [facility] oncologist Dr. Ventura. The following history was obtained from the EMR from previous h
--- NOTE | 2024-01-16 07:31 | PM.IMPN ---
Progress Note: A&P Assessment and Plan (1) UTI (urinary tract infection): Code(s): N39.0 - Urinary tract infection, site not specified Status: Acute Assessment and Plan: 01/16/24: UA showed 1+ urine protein, trace ketone, trace leukocytes, 6-10 urine wbc's. Urine and blood cultures were obtained and are pending Patient continues on cefepime, has noted allergy to vancomycin so this was not started White blood cell count is 34.9 with left shift and bandemia T-max 100.7? (2) Leukocytosis: Code(s): D72.829 - Elevated white blood cell count, unspecified Status: Inactive Assessment and Plan: 01/16/24: Initial white blood cell count 33.2 Today white blood cell count 34.9 with bandemia and left shift Likely a secondary to history of melanoma with metastatic disease, versus acute infection such as UTI, versus necrosis of the tumor Urine and blood cultures were obtained and are pending Patient is currently on cefepime Will add doxycycline considering he has vancomycin allergy T-max 100.7? (3) Anemia: Code(s): D64.9 - Anemia, unspecified Status: Acute Assessment and Plan: 01/16/24: Likely chronic due to history of melanoma and metastatic disease Initial hemoglobin 6.9 Patient receive 1 unit of blood Hemoglobin this morning 8.4 Continue to trend (4) Transaminitis: Code(s): R74.01 - Elevation of levels of liver transaminase levels Status: Acute Assessment and Plan: 01/16/24: Likely secondary to Ipilimumab/Yervoy infusions AST 47, ALT 91 which is showing improvement/downtrend (5) Chronic fatigue and malaise: Code(s): R53.82 - Chronic fatigue, unspecified; R53.81 - Other malaise Status: Acute Assessment and Plan: 01/16/24: Likely secondary to metastatic cancer and ongoing fever (6) 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 Ventura at [facility] He then started Ipilimumab/Yervoy infusions [id number] with the last infusion on 12/14/23 but this medication caused acute kidney failure and elevated LFTs with associated rash. He was seen and treated at an outside hospital initially. He was discontinued on Ipilimumab/Yervoy after these issues. Patient is due to follow-up with Dr. Ventura on the with a planned procedure on 21 of January for removal of the lymph node CT of the abdomen shown an increase in size of the left inguinal mass, currently 12.2 cm which is up from the 8.[address] scans. (7) Diabetes: Code(s): E11.9 - Type 2 diabetes mellitus without complications Status: Chronic Assessment and Plan: 01/16/24: Blood sugars ranging 90 to 107 Hemoglobin A1c was 8.9 Accu checks AC/HS Low-dose SSI ordered hypoglycemic protocol in place Diabetic diet ordered Time Spent With Patient Time with patient: Greater than 35 minutes Subjective Date/time seen: 01/16/24 07:31 Interval history: Interval history: This is a 53-year-old male with a significant past medical history metastatic melanoma who presented to the hospital with fever. Patient has a left inguinal mass in the left lower quadrant that has increased in size over the past few weeks and he originally plans to have an outpatient procedure on January 17 for removal. He is followed by [facility] oncologist Dr. Ventura. The following history was obtained from the EMR from previous hospital visits. According to his oncological history, he was originally treated with Opdivo/nivolumab however he did not respond to the medication. He then started Ipilimumab/Yervoy infusions [id number] with the last infusion on 12/14/23 but this medication caused acute kidney failure and elevated LFTs with associated rash. He was seen and treated at an outside hospital initially. He was discontinued on Ipilimumab/Y
[2024-01-16 08:10] LABS: Glucose Point of Care 107 mg/dl (65-105)
[2024-01-16] MEDS: INSULIN GLARGINE (*BKC) 100 UNITS/ML 15 UNITS SUB-Q (09:22)
[2024-01-16] MEDS: MAGNESIUM OXIDE 400 MG TABLET PO ×2 (09:22→20:42)
[2024-01-16 12:14] LABS: Glucose Point of Care 201 mg/dl (65-105)
[2024-01-16] MEDS: INSULIN ASPART (*BKC) 100 UNITS/ML SUB-Q ×3 (12:16→20:41)
[2024-01-16] MEDS: SULFAMETHOXAZOLE/TRIMETHOPRIM 800/160 MG DS TABLET 1 TAB PO ×2 (13:53→22:51)
[2024-01-16 17:00] LABS: Glucose Point of Care 215 mg/dl (65-105)
[2024-01-16 19:37] LABS: Glucose Point of Care 260 mg/dl (65-105)
--- NOTE | 2024-01-16 20:02 | PM.EVENT ---
Event Note Event Note Event Note: Was called by nursing this evening and was told that patient had HR of 120 and fever of 103.1. He has been running lower grade temps in the past. Orders placed for 1L NS bolus x1 now, Decadron infusion, repeat labs, respiratory panel, inflammatory markers, procal, stool cultures, and cortisol levels. I also increased insulin requirements considering the use of Decadron. Oncology will be consulted for further assistance in the morning. We will place on cardiac monitoring for now. Echo was reviewed and shown normal LV systolic function with an estimated EF of 65-70%, grade 1 diastolic dysfunction, moderate aortic valve stenosis, and small pericardial effusion without evidence of pericarditis. Venous doppler study was also reviewed and was negative for DVT, shown left groin mass measuring 11.2x8.7x11.3.
[2024-01-16 20:30] LABS: Influenza A QL RT-PCR Negative (Negative); Influenza B QL RT-PCR Negative (Negative); RSV RNA, RT-PCR Negative (Negative); SARS-CoV-2 RNA PCR Negative (Negative)
[2024-01-16 20:38] LABS: Hematocrit 25.3 % (42.0-52.0); Hemoglobin 8.1 g/dL (14.0-18.0); Mean Corpuscular Volume 90.7 fl (80-100); Mean Platelet Volume 8.7 fl (7.4-10.4); Platelet Count Result 198 k/mm3 (150-375); Red Blood Count 2.79 M/mm3 (4.6-6.20); Red Cell Distribution Width 17.1 % (11.5-14.5); White Blood Count 27.8 K/mm3 (4.5-10.0)
[2024-01-16] MEDS: INSULIN GLARGINE (*BKC) 100 UNITS/ML 24 UNITS SUB-Q (20:41)
[2024-01-16 20:49] LABS: Alanine Aminotransferase 128 U/L (6-50); Albumin Level 2.4 g/dL (3.5-5.1); Alkaline Phosphatase 545 U/L (38-126); Anion Gap 8 mmol/L (4-12); Aspartate Amino Transferase 144 U/L (17-59); Bilirubin,Total 0.8 mg/dL (0.2-1.3); Blood Urea Nitrogen 22 mg/dL (9-20); Carbon Dioxide 21 mmol/L (22-30); Chloride 101 mmol/L (98-107); Estimated CRCL calculation 52 ml/min; Estimated Glomerular Filt Rate 37; Glucose 217 mg/dL (65-110); Potassium 3.1 mmol/L (3.4-5.0); Sodium 130 mmol/L (137-145)
[2024-01-16 20:59] LABS: Band Neutrophils Percent 9 % (0-6); Lymphocytes Absolute Manual 0.55 K/mm3 (1.1-4.5); Neutrophils Absolute Manual 27.24 K/mm3 (1.3-6.7); Neutrophils Percent Manual 89 % (46-73); Total Cells Counted 100
[2024-01-16 21:00] LABS: Anisocytosis 1+; Platelet Estimate Adequate (Adequate); Schistocytes None Seen
[2024-01-16 21:08] LABS: CRP 24.6 mg/dL (<1.0)
[2024-01-16 21:09] LABS: Erythrocyte Sedimentation Rate 121 mm/hr (0-20)
[2024-01-16 21:30] LABS: HIV 1/2 Ab P24 Ag Result Negative (Negative)
[2024-01-16 22:00] LABS: Procalcitonin 2.4 ng/mL
[2024-01-16 22:45] LABS: Lactate Dehydrogenase 559 U/L (120-246)
[2024-01-16] MEDS: POTASSIUM CHLORIDE 20 MEQ ER TABLET 40 MEQ PO (22:51)
[2024-01-16] MEDS: dexAMETHasone SOD 4 MG/ML INJ 12 MG in SODIUM CHLORIDE 0.9% IV 100 ML 206 MG IVPB (23:15)
[2024-01-17] VITALS (21 sets, daily range): BP systolic 82–117; BP diastolic 58–83; PULSE 68–111; RESP 15–22; TEMP 36.4–38.1; O2SAT 94–100
[2024-01-17 00:27] LABS: Hematocrit 22.6 % (42.0-52.0); Hemoglobin 7.4 g/dL (14.0-18.0); Mean Corpuscular HGB Conc 32.7 g/dl (32-36); Mean Corpuscular Hemoglobin 29.1 pg (26-34); Mean Platelet Volume 8.8 fl (7.4-10.4); Platelet Count Result 183 k/mm3 (150-375); Red Blood Count 2.54 M/mm3 (4.6-6.20); Red Cell Distribution Width 17.1 % (11.5-14.5)
[2024-01-17] MEDS: SODIUM CHLORIDE 0.9% IV 1,000 ML 999 ML IV CONT (00:37)
[2024-01-17 00:39] LABS: Anion Gap 10 mmol/L (4-12); Blood Urea Nitrogen 22 mg/dL (9-20); Carbon Dioxide 18 mmol/L (22-30); Chloride 104 mmol/L (98-107); Estimated CRCL calculation 49 ml/min; Estimated Glomerular Filt Rate 35; Glucose 150 mg/dL (65-110); Lactic Acid Reflex 1.8 mmol/L (0.7-2.0); Magnesium 1.7 mg/dL (1.6-2.3); Phosphorus 2.6 mg/dL (2.5-4.5); Potassium 3.2 mmol/L (3.4-5.0); Sodium 132 mmol/L (137-145)
--- NOTE | 2024-01-17 00:54 | PC.NURSE ---
REPORT GIVEN TO MILAGROS FENG
--- NOTE | 2024-01-17 00:57 | P.PNCROSS_ITS ---
Event Note Event Note Event Note: I was called to patient's room due to blood pressure systolic 80 with diastolic 40 patient noted to be 6 L positive and not responding to fluid boluses. Decision was made to transfer patient to ICU for vasopressor. Patient agreeable to it. discussed with Dr. ePndleton inspector assemblies and installations. Vitals: blood pressure: 82/48 general: Generalized edema ill-appearing HEENT: Atraumatic normocephalic PERRLA EOM intact supple nausea VD no lymphadenopathy respiratory: Clear to auscultation bilaterally no wheezes rhonchi crackles cardiovascular: Holosystolic murmur loudest at aortic area abdomen: Soft nontender nondistended hepatosplenomegaly, left growing mass with necrotic area, fixed to underlying tissue, non mobile, heart to palpation With area of fluctuance in the center, warmth redness. Extremities: 2+ bilateral lower extremity edema central nervous system: Awake alert oriented x3 current nurse ii through xii grossly intact skin: Noted to have a faint red rash on his limbs assessment and plan: 1. sepsis/ necrotic mass/ Hypotension: Transferred to ICU will start Levophed. general surgery consult 2.: Metastatic melanoma: follow-up in outpatient setting
--- NOTE | 2024-01-17 01:27 | PC.NURSE ---
TRANSFERRED TO ICU 1 PER BED
[2024-01-17 01:29] LABS: Band Neutrophils Percent 9 % (0-6); Eosinophils Absolute Manual 0.23 K/mm3 (0.02-0.50); Eosinophils Percent Manual 1 % (0-4); Monocytes Absolute Manual 0.46 K/mm3 (0.1-0.90); Monocytes Percent Manual 2 % (3-9); Neutrophils Absolute Manual 22.31 K/mm3 (1.3-6.7); Neutrophils Percent Manual 88 % (46-73); Platelet Estimate Adequate (Adequate); Total Cells Counted 100
[2024-01-17 01:30] LABS: Anisocytosis 1+; Hypochromasia 1+; Schistocytes None Seen
[2024-01-17] MEDS: CEFEPIME 2 GM/NS 50 ML 2 GM/50 ML BAG IVPB ×2 (02:03→10:13)
[2024-01-17 03:13] LABS: Toxigenic C. Diff POSITIVE (NEGATIVE)
[2024-01-17] MEDS: CENTRAL LINE FLUSH 10 ML IV PUSH ×3 (05:27→20:37)
[2024-01-17 05:40] LABS: Hemoglobin 7.8 g/dL (14.0-18.0); Mean Corpuscular HGB Conc 32.5 g/dl (32-36); Mean Corpuscular Volume 89.2 fl (80-100); Mean Platelet Volume 8.9 fl (7.4-10.4); Platelet Count Result 176 k/mm3 (150-375); Red Blood Count 2.69 M/mm3 (4.6-6.20); Red Cell Distribution Width 17.2 % (11.5-14.5); White Blood Count 26.4 K/mm3 (4.5-10.0)
[2024-01-17 05:55] LABS: Alanine Aminotransferase 136 U/L (6-50); Albumin Level 2.3 g/dL (3.5-5.1); Alkaline Phosphatase 552 U/L (38-126); Anion Gap 8 mmol/L (4-12); Aspartate Amino Transferase 90 U/L (17-59); Bilirubin,Total 0.7 mg/dL (0.2-1.3); Blood Urea Nitrogen 23 mg/dL (9-20); Carbon Dioxide 21 mmol/L (22-30); Chloride 104 mmol/L (98-107); Estimated CRCL calculation 40 ml/min; Estimated Glomerular Filt Rate 31; Glucose 155 mg/dL (65-110); Lactate Dehydrogenase 420 U/L (120-246); Magnesium 1.8 mg/dL (1.6-2.3); Potassium 3.4 mmol/L (3.4-5.0); Sodium 133 mmol/L (137-145)
[2024-01-17 05:57] LABS: Band Neutrophils Percent 6 % (0-6); Lymphocytes Absolute Manual 0.26 K/mm3 (1.1-4.5); Monocytes Absolute Manual 0.26 K/mm3 (0.1-0.90); Monocytes Percent Manual 1 % (3-9); Neutrophils Absolute Manual 25.87 K/mm3 (1.3-6.7); Neutrophils Percent Manual 92 % (46-73); Total Cells Counted 100
[2024-01-17 05:58] LABS: Platelet Estimate Adequate (Adequate)
[2024-01-17 05:59] LABS: Anisocytosis 1+; Hypochromasia 1+; Schistocytes None Seen
[2024-01-17] MEDS: LEVOTHYROXINE SODIUM 12.5 MCG TABLET PO (06:16)
[2024-01-17 07:41] LABS: Glucose Point of Care 159 mg/dl (65-105)
[2024-01-17] MEDS: SULFAMETHOXAZOLE/TRIMETHOPRIM 800/160 MG DS TABLET 1 TAB PO (08:18)
[2024-01-17] MEDS: POTASSIUM CHLORIDE 20 MEQ ER TABLET 40 MEQ PO (08:18)
[2024-01-17] MEDS: dexAMETHasone SOD PHOS INJ 10 MG/ML 1 ML VIAL IV PUSH (08:18)
[2024-01-17] MEDS: MAGNESIUM OXIDE 400 MG TABLET PO ×2 (08:18→20:31)
[2024-01-17] MEDS: CALCIUM GLUC 2,000 MG/NS 100ML 2,000 MG/100 ML BAG 100 MG IVPB (08:18)
[2024-01-17] MEDS: FIDAXOMICIN 200 MG TABLET PO ×2 (08:18→20:31)
[2024-01-17] MEDS: MAGNESIUM SULF 2 GM/WATER 50ML 2 GM/50 ML BAG IVPB (08:19)
--- NOTE | 2024-01-17 09:03 | WPDCNINT ---
Assessment and Plan Assessment and plan (1) Sepsis: Qualifiers: Sepsis acute organ dysfunction status: unspecified Sepsis type: sepsis due to unspecified organism Qualified Code(s): A41.9 - Sepsis, unspecified organism Code(s): A41.9 - Sepsis, unspecified organism Status: Acute Assessment and Plan: Sepsis secondary to C diff associated, UTI, necrosis of metastatic melanoma mass which could be infected Blood cultures are done and pending Currently he is on cefepime IV and Dificid for C diff associated diarrhea Will broaden antibiotic coverage by adding linezolid and switching to meropenem. DC cefepime and Bactrim Surgery consulted for left inguinal mass present I anticipate they will defer it to Plastic surgery at [facility] where patient had his past surgery He did had episode of hypotension last night but currently his blood pressure is acceptable and he is not requiring any vasopressors. 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 Ventura at [facility] and received his chemo and immunotherapy. He was started Ipilimumab/Yervoy infusions [id number] with the last infusion on 12/14/23 but this medication caused acute kidney failure and elevated LFTs with associated rash. He was seen and treated at an outside hospital initially. He was discontinued on Ipilimumab/Yervoy after these issues. Patient was supposed to follow-up with Dr. Ventura on the with a planned procedure on 21 of January for removal of the lymph node. CT of the abdomen pelvis shows increase in size of the left inguinal mass, currently 12.2 cm which is up from the 8.[address] scans. There is also necrosis which can cause fever. General surgery was consulted and they recommend transferring patient to [facility]. Will discuss with hospitalist (5) Acute kidney injury: Code(s): N17.9 - Acute kidney failure, unspecified Status: Acute Assessment and Plan: Patient developed acute kidney injury recently on last admission. On 12/25 at the time of discharge patient creatinine was 3.3 Patient presented with creatinine 1.6 which has increased to 2.2 likely secondary to sepsis Monitor urine output electrolytes and creatinine Patient has received adequate amount IV fluids and is third-spacing Will add 25% albumin and maintain mean arterial pressure Monitor urine output electrolytes and creatinine (6) CKD (chronic kidney disease): Code(s): N18.9 - Chronic kidney disease, unspecified Status: Inactive Assessment and Plan: See above (7) Electrolyte abnormality: Code(s): E87.8 - Other disorders of electrolyte and fluid balance, not elsewhere classified Status: Acute Assessment and Plan: Replace low potassium (8) C. difficile diarrhea: Code(s): A04.72 - Enterocolitis due to Clostridium difficile, not specified as recurrent Status: Acute Assessment and Plan: Continue Dificid Patient continues to have 5-6 loose to soft bowel movements although has no abdominal pain and is tolerating p.o. diet CT scan did not show any colitis Plan DVT prophylaxis -start Arixtra. Patient has history of positive weak induced platelet antibody Nutrition -diet ordered Code Status - Full Code Total Critical Care Time - 35 minutes Due to a high probability of clinically significant, life threatening deterioration, the patient required my highest level of prepared
--- NOTE | 2024-01-17 09:41 | PM.CNGS ---
Assessment and Plan Assessment and plan (1) Melanoma metastatic to lymph node: Code(s): C77.9 - Secondary and unspecified malignant neoplasm of lymph node, unspecified Status: Chronic Assessment and Plan: Patient with known metastatic melanoma to lymph nodes with a large tumor in his left groin. He has been receiving treatment by Dr. Cullen and is actually scheduled to have this tumor removed by a Plastic Surgeon next week at [facility]. CT scan showed a large necrotic complex cystic mass in the left groin. He has multiple possible etiologies for his sepsis, including C.Diff, UTI, or the necrotic tumor. There is no urgent indication for incision and drainage of the tumor in his groin. We would recommend to continue critical care management, and attempt to transfer the patient to [facility], where he has been receiving all of his care. Will continue to follow along while patient is admitted here at [facility]. (2) C. difficile diarrhea: Code(s): A04.72 - Enterocolitis due to Clostridium difficile, not specified as recurrent Status: Acute Assessment and Plan: Cdiff positive. Currently on Fidaxomicin. Continue isolation precautions. (3) Sepsis: Qualifiers: Sepsis acute organ dysfunction status: unspecified Sepsis type: sepsis due to unspecified organism Qualified Code(s): A41.9 - Sepsis, unspecified organism Code(s): A41.9 - Sepsis, unspecified organism Status: Acute Assessment and Plan: Could be secondary to UTI, Cdiff, necrotic tumor, or combination. Continue broad-spectrum IV antibiotics. Blood cx pending. See plan above. (4) UTI (urinary tract infection): Code(s): N39.0 - Urinary tract infection, site not specified Status: Acute Assessment and Plan: Continue IV antibiotics. (5) Anemia: Code(s): D64.9 - Anemia, unspecified Status: Acute Assessment and Plan: Likely chronic from metastatic melanoma. Hgb 6.9 on admission and received 1 unit PRBCs. (6) Diabetes: Code(s): E11.9 - Type 2 diabetes mellitus without complications Status: Chronic (7) Acute kidney injury: Code(s): N17.9 - Acute kidney failure, unspecified Status: Acute Plan I have discussed the patient's case and plan of care with Dr. Gutierrez. Thank you for allowing us to see the patient in consultation and we will continue to follow along with you. History of Present Illness Consult details Consult date: 01/17/24 Reason for consult: other (Necrotic left groin mass) Requesting physician: Shabnam Nina MD Narrative: This is a 53-year-old male with past medical history of metastatic melanoma, diabetes, and hypothyroidism, who we were asked to see in surgical consultation for a necrotic left groin mass. He presented to the hospital two days ago due to a reported fever of 104F. He is followed by Dr. Cullen for Oncology at [facility] and is scheduled to have the left groin tumor removed by a plastic surgeon next week at [facility]. He was receiving immunotherapy up until December 13, which was stopped due to adverse effects of the treatment. He was recently seen in our ED on 01/11/24 for urinary complaints and low grade fevers. At that time, he was not having diarrhea. UA was unremarkable and he was discharged home. He returned to the ED on 01/15/24 due to fevers. Labs showed WBC count 33,200, hemoglobin 6.9, hct 21.3, sodium 131, potassium 3.3, BUN 17, creatinine 1.6, lactic acid 1.1, CRP 24, BNP 1819. UA positive for trace leukocytes, 6-10 WBCs, 1+ protein, trace ketones. Influenza A/b, COVID, and RSV negative. CXR negative. CT abdomen and pelvis showed interval increase in size of a previously 8.9 cm, now 12.2 cm, complex cystic left inguinal mass which is concerning for malignancy, could represent increasing necrosis in response to treatment, nonspecific diarrhea, decrease in a symmetric diffuse edema in the intra-abdominal and pelvic f
[2024-01-17] MEDS: MEROPENEM 1 GM/NS 100 ML 1 GM/100 ML BAG IVPB ×2 (10:29→20:32)
[2024-01-17] MEDS: LINEZOLID 600 MG/300 ML 600 MG/300 ML SOLN 300 MG IVPB ×2 (10:30→21:23)
--- NOTE | 2024-01-17 10:53 | PCFNICU ---
ICU Rounding Note: Pt current nutrition is DBCC with Glucerna shake BID. Last recorded weight is 93.4 kg, up from 107.5 kg on admit. Patient to be reweighed. Bowel Motility: +BM reported 01/16-CDiff+ Labs Reviewed: Glu 155, NA 133, GFR 31, BUN 23, Cr 2.2, Meds Noted: Heparin, Lantus, NovoLog, Synthroid. Skin: WNL Additional Notes: Patient remains on a DBCC diet with Glucerna shakes BID. Intake has been good 100% of meals. Agree with diet orders. Following daily in ICU rounds. Monitoring intakes, weights, labs, plan of care, supplement tolerance Follow up in 5 days.
--- NOTE | 2024-01-17 10:59 | PM.IMPN ---
Progress Note: A&P Assessment and Plan (1) Sepsis: Qualifiers: Sepsis acute organ dysfunction status: unspecified Sepsis type: sepsis due to unspecified organism Qualified Code(s): A41.9 - Sepsis, unspecified organism Code(s): A41.9 - Sepsis, unspecified organism Status: Acute Assessment and Plan: Sepsis secondary to C diff, PNA and/or necrosis of metastatic melanoma mass which could be infected Consider also related to reaction to his chemo treatment with last cycle 1 month ago. Blood cultures NGTD UCx negative. Currently he is on cefepime IV and Dificid for C diff associated diarrhea Abx coverage broadened by adding linezolid and switching to meropenem. Cefepime and Bactrim stopped On Decadron for possible chemo reaction Surgery consulted for left inguinal mass who deferred further evaluation/treatment to Plastic surgery at [facility] where patient had his past surgery Episode of hypotension last night treated with IV fluids. Levophed ordered and patient moved to ICU but BP stabilized and he never required Levophed. Currently his blood pressure is acceptable Continue abx. Follow WBC. (2) Diabetes: Code(s): E11.9 - Type 2 diabetes mellitus without complications Status: Chronic Assessment and Plan: A1c 8.9%. The patient's blood glucose was reviewed on 01/16 Glucose remains reasonably well controlled. Continue AccuCheks covering with sliding scale. Hypoglycemia protocol available as needed. Continue Lantus (3) Melanoma metastatic to lymph node: Code(s): C77.9 - Secondary and unspecified malignant neoplasm of lymph node, unspecified Status: Chronic Assessment and Plan: He is Followed by Dr. Ventura at [facility] and received his chemo and immunotherapy. He was started Ipilimumab/Yervoy infusions [id number] with the last infusion on 12/14/23 but this medication caused acute kidney failure and elevated LFTs with associated rash. He was discontinued on Ipilimumab/Yervoy after these issues. Patient was supposed to follow-up with Dr. Ventura on the with a planned procedure on 21 of January for removal of the left cystic inguinal lymph node. CT of the abdomen pelvis shows increase in size of the left inguinal mass, currently 12.2 cm which is up from the 8.[address] scans. There is also necrosis which can cause fever. General surgery was consulted and they recommend transferring patient to [facility]. Discussed with rn clinical documentation. Called [facility] but no beds available. (4) Acute kidney injury: Code(s): N17.9 - Acute kidney failure, unspecified Status: Acute Assessment and Plan: Patient developed acute kidney injury recently on last admission. On 12/25 at the time of discharge patient creatinine was 3.3 Cr continued to improve to 1.4 on 01/10 and was 1.6 on admission here. Creatinine has increased to 2.2 likely secondary to sepsis Patient has received adequate amount IV fluids and is third-spacing 25% albumin added and maintain mean arterial pressure Monitor urine output electrolytes and creatinine (5) CKD (chronic kidney disease): Code(s): N18.9 - Chronic kidney disease, unspecified Status: Inactive Assessment and Plan: See above with baseline around 1.5. (6) Electrolyte abnormality: Code(s): E87.8 - Other disorders of electrolyte and fluid balance, not elsewhere classified Status: Acute Assessment and Plan: Replace low potassium (7) C. difficile diarrhea: Code(s): A04.72 - Enterocolitis due to Clostridium difficile, not specified as recurrent Status: Acute Assessment and Plan: Patient having loose stools and CDiff toxin positive. CT scan did not show any colitis He was started on Dificid Diarrhea seems to be improving. (8) Acute UTI: Code(s): N39.0 - Urinary tract infection, site not specified Status: Acute Assessment
[2024-01-17] MEDS: INSULIN ASPART (*BKC) 100 UNITS/ML SUB-Q ×3 (11:38→20:41)
[2024-01-17 11:44] LABS: Glucose Point of Care 300 mg/dl (65-105)
[2024-01-17] MEDS: ALBUMIN HUMAN 25% 25 GM/100 ML 100 ML IVPB ×2 (12:33→17:04)
[2024-01-17] MEDS: FONDAPARINUX SODIUM 2.5 MG/0.5 ML SYRINGE SUB-Q (12:34)
--- NOTE | 2024-01-17 18:09 | PDONCCN ---
HPI - Date of Consult Date/Time: 01/17/24 18:09 Requesting Physician: Shabnam Nina MD Primary Care Provider: Leobardo Fox MD - Consult Narrative Reason for consult: Anemia Narrative: Zeke Latif is a 53 year old male with history of recurrent metastatic melanoma initially diagnosed in 2021 involving the left ankle. Patient was initially staged as 3A with inguinal lymph node involvement and received 8 months of immunotherapy treatment but was not able to complete full 1 year maintenance due to lapse in insurance coverage. Unfortunately he developed relapsed melanoma just anterior to the initial site of melanoma with bulky lymph node in the left inguinal region. Patient started on immunotherapy treatment with ipilimumab and nivolumab and received 3 cycles. His last treatment was about 5 weeks ago but unfortunately found to have progressive disease. He was scheduled to see Dr. Cullen tomorrow and plan for surgery is for next week. Patient now came into the hospital with fever. CT abdomen and pelvis was performed that showed interval increase in 8.9 cm mass in the left inguinal region with moderate splenomegaly. Labs showed elevated WBC count of 26,000 with hemoglobin of 7.8 and platelets 176 1000. Patient was started on broad-spectrum antibiotic coverage due to C diff colitis and pneumonia. Other labs showed creatinine of 2.2 with GFR of 40. Patient received 1 unit of packed red blood cell for hemoglobin of 6.9. Review of Systems - Review of Systems All systems reviewed & are unremarkable except as noted in HPI and bel - Neurologic Reports system reviewed and no additional complaints, except as documented, Denies focal weakness, Denies sensory deficit [facility] Medical History: Medical History (Last Reviewed 01/17/24 @ 09:43 by NORBERTO Sauceda) Diabetes GERD (gastroesophageal reflux disease) Metastatic melanoma EJ (obstructive sleep apnea) Surgical History: Surgical History (Last Reviewed 01/17/24 @ 10:36 by NORBERTO Sauceda) History of excision of lesion History of sentinel lymph node dissection Family History: Family History (Last Reviewed 01/17/24 @ 10:36 by NORBERTO Sauceda) Other Adopted - Social History Social History: Social History (Last Reviewed 01/17/24 @ 10:36 by NORBERTO Sauceda) Gender Identity: Gender identity (if verbalized by the patient): Male Sexual Orientation: Sexual Orientation (if Verbalized by the Patient): Straight or Heterosexual Alcohol Use: Alcohol intake: former Substance Use: Substance use: never Others: Spiritual care concerns: No Living Arrangements: Living arrangements: with family Oppucation/Education: Occupation/Education: occupation Smoking Status: Smoking status: Never smoker Social Determinants of Health: Do You Feel Safe in your Home?: Yes Has the Lack of Transportation Kept You From Medical Appointments or From Getting Medications?: No Within the Past 12 Months, Were You Worried Whether Your Food Would Run Out Before You Got Money to Buy More?: Never True What is Your Housing Situation Today?: I Have Housing Are You Worried That in the Next 2 Months, You May Not Have Your Own Housing to Live In?: No Do You Have Trouble Paying Your Heating Or Electricity Bill?: Yes Do You Have Trouble Paying For Medicines?: Yes Are You Currently Unemployed and Looking for Work?: No Highest Level of Education Completed: Trade/Vocational Certific Do You Have Trouble With Childcare or the Care of a Family Member?: No Exam - Vital Signs Vital Signs - 24 hr 01/16/24 18:23 01/16/24 20:49 01/16/24 22:41 Temperature 39.5 C H 37.2 C 37.3 C Pulse Rate 111 H Respiratory Rate 18 Blood Pressure 92/56 L 109/71 Pulse Oximetry 95 Oxygen Delivery 01/16/24 22:59 01/16/24 21:00 01/16/24 23:40 Temperature 37.7 C H 39.1 C H Pulse Rate 99 116 H
--- NOTE | 2024-01-17 18:19 | PC.NURSE ---
This patient, Zeke Latif, was transferred to [[id number] ] on 01/17/24 at 1820. Personal belongings sent with patient. Report given to [Yanelis chavarria RN ]. Appropriate documentation sent with patient.
--- NOTE | 2024-01-17 18:20 | PC.NURSE ---
This patient, Zeke Latif, was received from ICU1 on 01/17/24 at 1820. Patient/family oriented to unit policies and routines
[2024-01-17 20:07] LABS: Glucose Point of Care 372 mg/dl (65-105)
[2024-01-17] MEDS: ACETAMINOPHEN 500 MG TABLET 1000 MG PO (20:30)
[2024-01-17] MEDS: INSULIN GLARGINE (*BKC) 100 UNITS/ML 24 UNITS SUB-Q (20:41)
[2024-01-17 21:39] LABS: Iron 60 ug/dL (49-181)
[2024-01-17 21:48] LABS: Percent Iron Saturation 38 % (20-50)
[2024-01-17 21:50] LABS: Folic Acid 3.9 ng/mL (2.76->20); Vitamin B12 > 1000.0 pg/mL (239-931)
[2024-01-18] VITALS (21 sets, daily range): BP systolic 103–132; BP diastolic 58–83; PULSE 78–104; RESP 14–18; TEMP 35.7–36.9; O2SAT 18–100
[2024-01-18] MEDS: ALBUMIN HUMAN 25% 25 GM/100 ML 100 ML IVPB ×3 (00:39→12:22)
[2024-01-18] MEDS: LEVOTHYROXINE SODIUM 12.5 MCG TABLET PO (05:30)
[2024-01-18] MEDS: CENTRAL LINE FLUSH 10 ML IV PUSH ×3 (05:31→21:05)
[2024-01-18 05:54] LABS: Hematocrit 21.5 % (42.0-52.0); Red Blood Count 2.37 M/mm3 (4.6-6.20); White Blood Count 30.4 K/mm3 (4.5-10.0)
[2024-01-18 05:55] LABS: Basophils Absolute Auto 0.1 K/mm3 (0.0-0.1); Basophils Percent Auto 0.4 % (0.2-1.2); Eosinophils Absolute Auto 0.3 K/mm3 (0-0.3); Eosinophils Percent Auto 0.9 % (0-4.4); Immature Granulocyte Absolute 1.33 K/mm3 (0.00-0.031); Immature Granulocyte Percent A 4.4 % (0-0.5); Lymphocytes Absolute Auto 0.49 K/mm3 (0.9-3.2); Lymphocytes Percent Auto 1.6 % (18.3-44.2); Mean Corpuscular HGB Conc 32.6 g/dl (32-36); Mean Corpuscular Hemoglobin 29.5 pg (26-34); Mean Corpuscular Volume 90.7 fl (80-100); Mean Platelet Volume 8.9 fl (7.4-10.4); Monocytes Absolute Auto 0.6 K/mm3 (0.1-0.6); Monocytes Percent Auto 1.8 % (2.6-8.5); Neutrophils Absolute Auto 27.6 K/mm3 (1.3-6.7); Neutrophils Percent Auto 90.9 % (45.5-73.1); Platelet Count Result 185 k/mm3 (150-375); Red Cell Distribution Width 17.2 % (11.5-14.5)
[2024-01-18 06:04] LABS: Alanine Aminotransferase 99 U/L (6-50); Albumin Level 2.7 g/dL (3.5-5.1); Alkaline Phosphatase 433 U/L (38-126); Anion Gap 11 mmol/L (4-12); Aspartate Amino Transferase 50 U/L (17-59); Bilirubin,Total 0.5 mg/dL (0.2-1.3); Blood Urea Nitrogen 29 mg/dL (9-20); Calcium 7.6 mg/dL (8.4-10.2); Carbon Dioxide 17 mmol/L (22-30); Chloride 103 mmol/L (98-107); Estimated CRCL calculation 46 ml/min; Estimated Glomerular Filt Rate 30; Glucose 166 mg/dL (65-110); Magnesium 2.2 mg/dL (1.6-2.3); Phosphorus 3.1 mg/dL (2.5-4.5); Potassium 3.4 mmol/L (3.4-5.0); Sodium 131 mmol/L (137-145)
[2024-01-18 06:33] LABS: Anisocytosis 1+; Hypochromasia 1+; Platelet Estimate Adequate (Adequate); Schistocytes None Seen
[2024-01-18 06:55] LABS: Glucose Point of Care 156 mg/dl (65-105)
[2024-01-18 07:49] LABS: Glucose Point of Care 307 mg/dl (65-105)
[2024-01-18] MEDS: FIDAXOMICIN 200 MG TABLET PO ×2 (09:15→20:49)
[2024-01-18] MEDS: FONDAPARINUX SODIUM 2.5 MG/0.5 ML SYRINGE SUB-Q (09:15)
[2024-01-18] MEDS: MAGNESIUM OXIDE 400 MG TABLET PO (09:15)
[2024-01-18] MEDS: MEROPENEM 1 GM/NS 100 ML 1 GM/100 ML BAG IVPB (09:16)
[2024-01-18] MEDS: LINEZOLID 600 MG/300 ML 600 MG/300 ML SOLN 300 MG IVPB (10:02)
[2024-01-18 12:06] LABS: Glucose Point of Care 202 mg/dl (65-105)
[2024-01-18] MEDS: INSULIN ASPART (*BKC) 100 UNITS/ML SUB-Q (12:23)
--- NOTE | 2024-01-18 13:57 | PM.IMPN ---
Progress Note: A&P Assessment and Plan (1) Sepsis: Qualifiers: Sepsis acute organ dysfunction status: unspecified Sepsis type: sepsis due to unspecified organism Qualified Code(s): A41.9 - Sepsis, unspecified organism Code(s): A41.9 - Sepsis, unspecified organism Status: Acute Assessment and Plan: Sepsis secondary to C diff, PNA, melanoma and/or necrosis of metastatic melanoma mass which could be infected Consider also related to reaction to his chemo treatment but last cycle was 1 month ago and he has finished a long steroid taper prior to admission. Blood cultures NGTD UCx negative. He was on cefepime IV. Dificid started for C diff associated diarrhea (no colitis noted on CT scan) Abx coverage broadened on 01/16 by adding linezolid and switching to meropenem. Cefepime and Bactrim stopped The patient was started on Decadron for possible chemo reaction and had one dose but Oncology felt this was less likely and recommended verbally to stop steroids Surgery consulted for left inguinal mass who deferred further evaluation/treatment to Plastic surgery at [facility] where patient is scheduled to have this resected next week. Episode of hypotension evening of 01/15 treated with IV fluids. Levophed ordered and patient moved to ICU but BP stabilized and he never required Levophed. Currently his blood pressure is acceptable WBC up to 30K felt related to steroids since fulminant CDiff clinically less likely. Continue abx. Follow WBC. (2) Anemia: Code(s): D64.9 - Anemia, unspecified Status: Acute Assessment and Plan: Patient with chronic anemia mostly with Hgb 7-8 range. Hgb dropped to 6.9 and received 1U PRBC 01/15. Hgb remained low in the 7-8 range with Hgb 7.0 today. Was planning on monitoring serial HH but patient having symptoms so 1U PRBC ordered. On Arixtra for DVT prophylaxis. Will monitor closely for evidence of bleeding. Add pepcid. Lasix IV once after unit Follow (3) Melanoma metastatic to lymph node: Code(s): C77.9 - Secondary and unspecified malignant neoplasm of lymph node, unspecified Status: Chronic Assessment and Plan: Patient has recurrent metastatic melanoma initially diagnosed in 2021 involving the left ankle. Patient was initially staged as 3A with inguinal lymph node involvement and received 8 months of immunotherapy treatment but was not able to complete full 1 year maintenance due to lapse in insurance coverage. Unfortunately he developed relapsed melanoma just anterior to the initial site of melanoma with bulky lymph node in the left inguinal region. Patient started on immunotherapy treatment with ipilimumab and nivolumab and received 3 cycles. His last treatment was 12/14/23 but this medication caused acute kidney failure and elevated LFTs with associated rash. He was discontinued on Ipilimumab/Yervoy after these issues. He required hospitalization here in early December for this and was discharged home on long Prednisone taper. Patient was supposed to follow-up with Dr. Cullen on the 01/18/24 with a planned procedure on 21 of January for removal of the left cystic inguinal lymph node. CT of the abdomen pelvis shows increase in size of the left inguinal mass, currently 12.2 cm which is up from the 8.[address] scans. He is here for fever. Melanoma itself can cause fever. There is also necrosis which can cause fever. General surgery was consulted and they recommend transferring patient to [facility]. Discussed with grant coordinator. Called [facility] again today but no beds available. (4) Acute kidney injury: Code(s): N17.9 - Acute kidney failure, unspecified Status: Acute Assessment and Plan: Patient developed acute kidney injury recently on last admission. On 12/25 at the time of discharge patient creatinine was 3.3 Cr continued to improve to 1.4 on 01/10 and was 1.6 on admission here. Creatinine has increased to 2.3 likel
[2024-01-18] MEDS: SODIUM CHLORIDE 0.9% IV 250 ML 30 ML IV CONT (14:45)
[2024-01-18 16:46] LABS: Glucose Point of Care 168 mg/dl (65-105)
[2024-01-18] MEDS: POTASSIUM CHLORIDE 20 MEQ ER TABLET 40 MEQ PO (17:37)
[2024-01-18] MEDS: FUROSEMIDE INJ 40 MG/4 ML VIAL 20 MG IV PUSH (17:37)
[2024-01-18] MEDS: FAMOTIDINE 20 MG TABLET PO ×2 (17:37→20:49)
[2024-01-18 20:12] LABS: Glucose Point of Care 109 mg/dl (65-105)
[2024-01-19] VITALS (14 sets, daily range): BP systolic 121–132; BP diastolic 71–78; PULSE 85–129; RESP 12–18; TEMP 36.3–37.5; O2SAT 98–100
[2024-01-19] MEDS: LEVOTHYROXINE SODIUM 12.5 MCG TABLET PO (06:08)
[2024-01-19] MEDS: CENTRAL LINE FLUSH 10 ML IV PUSH ×3 (06:09→21:31)
[2024-01-19 06:31] LABS: Basophils Absolute Auto 0.1 K/mm3 (0.0-0.1); Basophils Percent Auto 0.3 % (0.2-1.2); Eosinophils Absolute Auto 1.1 K/mm3 (0-0.3); Eosinophils Percent Auto 4.2 % (0-4.4); Hematocrit 24.8 % (42.0-52.0); Hemoglobin 7.8 g/dL (14.0-18.0); Immature Granulocyte Absolute 1.16 K/mm3 (0.00-0.031); Immature Granulocyte Percent A 4.5 % (0-0.5); Lymphocytes Absolute Auto 0.82 K/mm3 (0.9-3.2); Lymphocytes Percent Auto 3.2 % (18.3-44.2); Mean Corpuscular HGB Conc 31.5 g/dl (32-36); Mean Corpuscular Hemoglobin 28.6 pg (26-34); Mean Corpuscular Volume 90.8 fl (80-100); Monocytes Absolute Auto 0.6 K/mm3 (0.1-0.6); Monocytes Percent Auto 2.2 % (2.6-8.5); Neutrophils Absolute Auto 22.2 K/mm3 (1.3-6.7); Neutrophils Percent Auto 85.6 % (45.5-73.1); Platelet Count Result 200 k/mm3 (150-375); Red Blood Count 2.73 M/mm3 (4.6-6.20); Red Cell Distribution Width 17.2 % (11.5-14.5); White Blood Count 25.9 K/mm3 (4.5-10.0)
[2024-01-19 06:49] LABS: Alanine Aminotransferase 142 U/L (6-50); Albumin Level 2.7 g/dL (3.5-5.1); Alkaline Phosphatase 522 U/L (38-126); Anion Gap 9 mmol/L (4-12); Aspartate Amino Transferase 102 U/L (17-59); Bilirubin,Total 0.8 mg/dL (0.2-1.3); Blood Urea Nitrogen 34 mg/dL (9-20); Calcium 7.9 mg/dL (8.4-10.2); Carbon Dioxide 18 mmol/L (22-30); Chloride 104 mmol/L (98-107); Estimated CRCL calculation 34 ml/min; Estimated Glomerular Filt Rate 21; Glucose 72 mg/dL (65-110); Magnesium 2.1 mg/dL (1.6-2.3); Phosphorus 2.6 mg/dL (2.5-4.5); Potassium 3.5 mmol/L (3.4-5.0); Sodium 131 mmol/L (137-145)
[2024-01-19 06:54] LABS: Glucose Point of Care 73 mg/dl (65-105)
[2024-01-19 06:56] LABS: Anisocytosis 1+; Platelet Estimate Adequate (Adequate); Schistocytes None Seen
[2024-01-19] MEDS: FIDAXOMICIN 200 MG TABLET PO ×2 (10:28→21:31)
--- NOTE | 2024-01-19 11:05 | PM.CNNEP ---
Assessment and Plan Assessment and plan (1) Acute kidney injury: Code(s): N17.9 - Acute kidney failure, unspecified Status: Acute Assessment and Plan: normal renal function/creatinine prior November 2023 hospitalization at [facility] noted SAMANTHA/ARF in November 2023 hospital stay at [facility]: admission creatinine 0.92mg/dl peaked/platueaed at 3.03mg/dl insult thought to be multifactorial ATN from prerenal factors, contrast exposure, hypotension, and possibly vancomycin by time of discharge (12/05/23), creatinine was down to 2.55mg/dl subsequent outpatient labs done on 12/14/23 demonstrated at creatinine of 1.45mg/dl another episode of SAMANTHA/ARF during December 2023 admission here at [facility] admission creatinine at that time was 3.3mg/dl creatinine peaked at 6.7mg/dl extensive evaluation done during hospital stay....his recurrent bouts of SAMANTHA/ARF always seemed to follow his previous cycles of chemotherapy every 21 days, specifically the use of nivolumab and ipilimumab; upon further investigation, these medications have been associated with SAMANTHA/ARF for a variety of reasons including acute interstitial nephritis (did he have AIN on his previous hospitalization at [facility]?) empirically started on steroids given worsening rash on 12/21/23 renal scan showed poor uptake and also poor excretion - not consistent with ATN per se serological testing was negative creatinine on discharge was 1.4mg/dl last creatinine was 1.08mg/dl on 01/04/2024 creatinine on this admission was 1.6mg/dl with slow worsening noted - up to 3.1mg/dl by AM labs etiology not clear; several possibilities including: prerenal factors hypotension possible infection (colitis + necrosis of melanoma mass) drug reaction/AIN (no recent chemotherapy but has been on antibiotics + rash) other(?) check urine studies, CPK, and renal ultrasound consider trial of IVFs (?) -- but has LE edema however, continues to make good urine output follow trend of repeat labs and UOP (2) Sepsis: Qualifiers: Sepsis acute organ dysfunction status: unspecified Sepsis type: sepsis due to unspecified organism Qualified Code(s): A41.9 - Sepsis, unspecified organism Code(s): A41.9 - Sepsis, unspecified organism Status: Acute Assessment and Plan: presumed source due to C. diff colitis and possibly necrosis of left groin melanoma mass blood and urine cultures negative to date has not required vasopressor therapy bout on hypotension on 01/15 but responded to fluid boluses continue current therapy (3) C. difficile diarrhea: Code(s): A04.72 - Enterocolitis due to Clostridium difficile, not specified as recurrent Status: Acute Assessment and Plan: patient with loose stools on admission C. difficile toxin assay positive on Dificd follow diarrhea/bowel movements (4) Metastatic melanoma: Code(s): C43.9 - Malignant melanoma of skin, unspecified Status: Chronic Assessment and Plan: known diagnosis not currently on chemotherapy due to recurrent bouts of SAMANTHA/ARF in association with rash and elevated LFTs CT here with increase in size of the left inguinal mass, currently 12.2 cm which is up from the 8.[address] scans possible transfer to [facility] as to have planned surgery for left cystic inguinal node next week (5) Anemia: Code(s): D64.9 - Anemia, unspecified Status: Acute Assessment and Plan: s/p PRBC transfusion (on 01/15) for Hgb of 6.9 likely due to acute illness, CRYSTAL/ARF, and underlying malignancy follow trend of H/H (6) Metabolic acidosis: Code(s): E87.20 - Acidosis, unspecified Status: Acute Assessment and Plan: partly related to SAMANTHA along with GI losses (diarrhea) consider oral sodiuim bicarbonate follow trend of CO2 (7) Diabetes: Code(s): E11.9 - Type 2 diabetes m
--- NOTE | 2024-01-19 11:05 | P.CONNP_ITS ---
Assessment and Plan Assessment and plan (1) Acute kidney injury: Code(s): N17.9 - Acute kidney failure, unspecified Status: Acute Assessment and Plan: * normal renal function/creatinine prior November 2023 hospitalization at [facility] * noted SAMANTHA/ARF in November 2023 hospital stay at [facility]: * admission creatinine 0.92mg/dl * peaked/platueaed at 3.03mg/dl * insult thought to be multifactorial ATN from prerenal factors, contrast exposure, hypotension, and possibly vancomycin * by time of discharge (12/05/23), creatinine was down to 2.55mg/dl * subsequent outpatient labs done on 12/14/23 demonstrated at creatinine of 1.45mg/dl * another episode of SAMANTAH/ARF during December 2023 admission here at [facility] * admission creatinine at that time was 3.3mg/dl * creatinine peaked at 6.7mg/dl * extensive evaluation done during hospital stay....his recurrent bouts of SAMANTHA/ARF always seemed to follow his previous cycles of chemotherapy every 21 days, specifically the use of nivolumab and ipilimumab; upon further investigation, these medications have been associated with SAMANTHA/ARF for a variety of reasons including acute interstitial nephritis (did he have AIN on his previous hospitalization at [facility]?) * empirically started on steroids given worsening rash on 12/21/23 * renal scan showed poor uptake and also poor excretion - not consistent with ATN per se * serological testing was negative * creatinine on discharge was 1.4mg/dl * last creatinine was 1.08mg/dl on 01/04/2024 * creatinine on this admission was 1.6mg/dl with slow worsening noted - up to 3.1mg/dl by AM labs * etiology not clear; several possibilities including: * prerenal factors * hypotension * possible infection (colitis + necrosis of melanoma mass) * drug reaction/AIN (no recent chemotherapy but has been on antibiotics + rash) * other(?) * check urine studies, CPK, and renal ultrasound * consider trial of IVFs (?) -- but has LE edema * however, continues to make good urine output * follow trend of repeat labs and UOP (2) Sepsis: Qualifiers: Sepsis acute organ dysfunction status: unspecified Sepsis type: sepsis due to unspecified organism Qualified Code(s): A41.9 - Sepsis, unspecified organism Code(s): A41.9 - Sepsis, unspecified organism Status: Acute Assessment and Plan: * presumed source due to C. diff colitis and possibly necrosis of left groin melanoma mass * blood and urine cultures negative to date * has not required vasopressor therapy * bout on hypotension on 01/15 but responded to fluid boluses * continue current therapy (3) C. difficile diarrhea: Code(s): A04.72 - Enterocolitis due to Clostridium difficile, not specified as recurrent Status: Acute Assessment and Plan: * patient with loose stools on admission * C. difficile toxin assay positive * on Dificd * follow diarrhea/bowel movements (4) Metastatic melanoma: Code(s): C43.9 - Malignant melanoma of skin, unspecified Status: Chronic Assessment and Plan: * known diagnosis * not currently on chemotherapy due to recurrent bouts of SAMANTHA/ARF in association with rash and elevated LFTs * CT here with increase in size of the left inguinal mass, currently 12.2 cm which is up from the 8.[address] scans * possible transfer to [facility] as to have planned surgery for left cystic inguinal node next week (5) Anemia: Code(s): D64.9 - Anemia, unspecified
[2024-01-19 11:54] LABS: Glucose Point of Care 104 mg/dl (65-105)
--- NOTE | 2024-01-19 15:00 | PM.IMPN ---
Progress Note: A&P Assessment and Plan (1) Acute kidney injury: Code(s): N17.9 - Acute kidney failure, unspecified Status: Acute Assessment and Plan: Patient developed acute kidney injury recently on last admission. On 12/25 at the time of discharge patient creatinine was 3.3 Cr continued to improve to 1.4 on 01/10 and was 1.6 on admission here. (Cr was closer to 1.0 at an outside hospital around this time) Patient has received adequate amount IV fluids and was given 25% albumin to maintain mean arterial pressure Creatinine has increased to 3.1 likely secondary to sepsis. Potassium 3.5 and serum bicarb 18. He received Lasix 20mg IV once after blood transfusion yesterday. IV contrast exposure on 01/14 UOP 1350 -> 2100 -> 300mL so far today Renal US showing normal kidneys. PVR about 0mL. Urine Eos pending. Check CK. Urine labs not prerenal. Nephrology consulted. Related to abx? Monitor urine output, electrolytes and creatinine (2) Sepsis: Qualifiers: Sepsis acute organ dysfunction status: unspecified Sepsis type: sepsis due to unspecified organism Qualified Code(s): A41.9 - Sepsis, unspecified organism Code(s): A41.9 - Sepsis, unspecified organism Status: Acute Assessment and Plan: Sepsis secondary to C diff, PNA, melanoma and/or necrosis of metastatic melanoma mass which could be infected Consider also related to reaction to his chemo treatment but last cycle was 1 month ago and he has finished a long steroid taper prior to admission. Blood cultures NGTD UCx negative. CXR was clear. CT A/P nonspecific diarrhea; decrease in difuse intra-bad and pelvic fat edmea; small ascites; left lingula atelectasis Repeat CXR showing hazy LLL infiltrate. He was on cefepime IV. Dificid started for C diff associated diarrhea (no colitis noted on CT scan) Abx coverage broadened on 01/16 by adding linezolid and switching to meropenem. Cefepime and Bactrim stopped The patient was started on Decadron for possible chemo reaction and had one dose but Oncology felt this was less likely and recommended verbally to stop steroids Surgery consulted for left inguinal mass who deferred further evaluation/treatment to Plastic surgery at [facility] where patient is scheduled to have this resected next week. Episode of hypotension evening of 01/15 treated with IV fluids. Levophed ordered and patient moved to ICU but BP stabilized and he never required Levophed. Currently his blood pressure is acceptable WBC was up to 30K felt related to steroids and now trending down as expected Continue abx. Follow WBC. Check CXR If CXR clear, then stop abx. If persistent LLL infiltrate then de-escalate abx. (3) Anemia: Code(s): D64.9 - Anemia, unspecified Status: Acute Assessment and Plan: Patient with chronic anemia mostly with Hgb 7-8 range. Hgb dropped to 6.9 and received 1U PRBC 01/15. Hgb remained low in the 7-8 range with Hgb 7.0 on 01/17 and 1U PRBC ordered. On Arixtra for DVT prophylaxis. Will monitor closely for evidence of bleeding. Pepcid added. Hgb up to 7.8 today. 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 Patient was initially staged as 3A with inguinal lymph node involvement and received 8 months of immunotherapy treatment but was not able to complete full 1 year maintenance due to lapse in insurance coverage. Unfortunately he developed relapsed melanoma just anterior to the initial site of melanoma with bulky lymph node in the left inguinal region. Patient started on immunotherapy treatment with ipilimumab and nivolumab and received 3 cycles. His last treatment was 12/14/23 but this medication caused acute kidney failure and elevated LFTs with associated rash.
[2024-01-19 16:57] LABS: Glucose Point of Care 123 mg/dl (65-105)
[2024-01-19 17:04] LABS: Creatinine Urine 38.5 mg/dL; Total Protein Urine Random 88 mg/dL; Ur Ttl Prot Creatinine Ratio 2.29 mg/mg (0-0.20)
[2024-01-19 17:05] LABS: Total Protein Urine Random 90 mg/dL; Urea Random Urine 163 MG/DL
[2024-01-19 17:06] LABS: Creatinine Urine 38.4 mg/dL
[2024-01-19 17:09] LABS: Sodium Urine Random 37 meq/L
[2024-01-19 17:25] LABS: Eosinophil Urine None Seen % (None Seen); Urine Eos QC 2nd Tech Confirmed
[2024-01-19 20:16] LABS: Glucose Point of Care 165 mg/dl (65-105)
[2024-01-19] MEDS: FAMOTIDINE 20 MG TABLET PO (21:31)
[2024-01-20] VITALS (18 sets, daily range): BP systolic 111–141; BP diastolic 56–81; PULSE 84–116; RESP 16–18; TEMP 36.5–37.1; O2SAT 97–100
[2024-01-20] MEDS: CENTRAL LINE FLUSH 10 ML IV PUSH ×3 (06:29→21:00)
[2024-01-20] MEDS: ACETAMINOPHEN 500 MG TABLET 1000 MG PO (06:29)
[2024-01-20] MEDS: LEVOTHYROXINE SODIUM 12.5 MCG TABLET PO (06:30)
[2024-01-20 06:59] LABS: Basophils Absolute Auto 0.2 K/mm3 (0.0-0.1); Basophils Percent Auto 0.5 % (0.2-1.2); Hematocrit 26.1 % (42.0-52.0); Hemoglobin 8.5 g/dL (14.0-18.0); Immature Granulocyte Absolute 1.27 K/mm3 (0.00-0.031); Immature Granulocyte Percent A 3.9 % (0-0.5); Lymphocytes Absolute Auto 1.23 K/mm3 (0.9-3.2); Lymphocytes Percent Auto 3.8 % (18.3-44.2); Mean Corpuscular HGB Conc 32.6 g/dl (32-36); Mean Corpuscular Hemoglobin 29.5 pg (26-34); Mean Corpuscular Volume 90.6 fl (80-100); Mean Platelet Volume 8.8 fl (7.4-10.4); Monocytes Absolute Auto 0.7 K/mm3 (0.1-0.6); Monocytes Percent Auto 2.1 % (2.6-8.5); Neutrophils Absolute Auto 28.3 K/mm3 (1.3-6.7); Neutrophils Percent Auto 86.7 % (45.5-73.1); Platelet Count Result 237 k/mm3 (150-375); Red Blood Count 2.88 M/mm3 (4.6-6.20); Red Cell Distribution Width 17.2 % (11.5-14.5); White Blood Count 32.6 K/mm3 (4.5-10.0)
[2024-01-20 07:08] LABS: Alanine Aminotransferase 177 U/L (6-50); Alkaline Phosphatase 809 U/L (38-126); Anion Gap 9 mmol/L (4-12); Aspartate Amino Transferase 106 U/L (17-59); Bilirubin,Total 1.1 mg/dL (0.2-1.3); Blood Urea Nitrogen 38 mg/dL (9-20); Calcium 8.1 mg/dL (8.4-10.2); Carbon Dioxide 18 mmol/L (22-30); Chloride 103 mmol/L (98-107); Estimated CRCL calculation 31 ml/min; Estimated Glomerular Filt Rate 18; Glucose 148 mg/dL (65-110); Magnesium 2.2 mg/dL (1.6-2.3); Phosphorus 2.7 mg/dL (2.5-4.5); Potassium 3.9 mmol/L (3.4-5.0); Sodium 130 mmol/L (137-145)
[2024-01-20 07:33] LABS: Creatine Kinase < 20 U/L (55-170)
[2024-01-20 07:53] LABS: Glucose Point of Care 149 mg/dl (65-105)
[2024-01-20] MEDS: FIDAXOMICIN 200 MG TABLET PO ×2 (09:16→21:00)
--- NOTE | 2024-01-20 10:46 | PC.NURSE ---
Pt still refuses morning medications including IV antibiotics, Magnesium, Pepcid, and Arixtra. Pt has been educated on the benefits of these medications. He was willing to receive Heparin for his Port and Dificid.
--- NOTE | 2024-01-20 11:55 | PM.IMPN ---
Progress Note: A&P Assessment and Plan (1) Acute kidney injury: Code(s): N17.9 - Acute kidney failure, unspecified Status: Acute Assessment and Plan: Patient developed acute kidney injury recently on last admission. On 12/25 at the time of discharge patient creatinine was 3.3 Cr continued to improve to 1.4 on 01/10 and was closer to 1.0 at an outside hospital around this time IV contrast exposure on 01/14; he was on Bactrim until 01/16. Was HoTN on evening 01/15. He received Lasix 20mg IV once after blood transfusion 01/17. Patient has received adequate amount IV fluids and was given 25% albumin to maintain mean arterial pressure Creatinine was 1.6 on admission and has climbed to 3.5 likely secondary to sepsis vs HoTN vs drug rxn Potassium 3.7 and serum bicarb 18. UOP 1350 -> 2100 -> 1400 -> 1825mL so far today Renal US showing normal kidneys. PVR about 0mL. Urine Eos negative. TCK negative. Urine labs not prerenal. Prot/Cr 2.29g Off abx for 2 days now (patient refusing with last doses on 01/17) Nephrology consulted. Hold abx since patieint refusing to assess renal function off abx. Monitor urine output, electrolytes and creatinine (2) Sepsis: Qualifiers: Sepsis acute organ dysfunction status: unspecified Sepsis type: sepsis due to unspecified organism Qualified Code(s): A41.9 - Sepsis, unspecified organism Code(s): A41.9 - Sepsis, unspecified organism Status: Acute Assessment and Plan: Sepsis secondary to C diff, PNA, melanoma and/or necrosis of metastatic melanoma mass which could be infected Consider also related to reaction to his chemo treatment but last cycle was 1 month ago and he has finished a long steroid taper prior to admission. Blood cultures NGTD UCx negative. CXR was clear. CT A/P nonspecific diarrhea; decrease in difuse intra-bad and pelvic fat edmea; small ascites; left lingula atelectasis Repeat CXR showing hazy LLL infiltrate. He was on cefepime IV. Dificid started for C diff associated diarrhea (no colitis noted on CT scan) Abx coverage broadened on 01/16 by adding linezolid and switching to meropenem. Cefepime and Bactrim stopped The patient was started on Decadron for possible chemo reaction and had one dose but Oncology felt this was less likely and recommended verbally to stop steroids Surgery consulted for left inguinal mass who deferred further evaluation/treatment to Plastic surgery at [facility] where patient is scheduled to have this resected on Sunday Episode of hypotension evening of 01/15 treated with IV fluids. Levophed ordered and patient moved to ICU but BP stabilized and he never required Levophed. Currently his blood pressure is acceptable CXR 01/18 showing mild atelectasis left lung base WBC back up to 33K. WBC was improving but WBC higher since he has refused Meropenem and Linezolid for the past 2 days. Will hold abx since he is refusing to take them and no obvious source of infection and he has SAMANTHA. Monitor for fever and re-culture is fever develops. Follow WBC. Check other inflammatory markers. Check CT Ch/A/P (3) Anemia: Code(s): D64.9 - Anemia, unspecified Status: Acute Assessment and Plan: Patient with chronic anemia mostly with Hgb 7-8 range. Hgb dropped to 6.9 and received 1U PRBC 01/15. Hgb remained low in the 7-8 range with Hgb 7.0 on 01/17 and 1U PRBC ordered. On Arixtra for DVT prophylaxis. Will monitor closely for evidence of bleeding. Continue Pepcid Hgb up to 8.5 today. 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 Patient was initially staged as 3A with inguinal lymph node involvement and received 8 months of immunotherapy treatment but was not able to complete full 1 year shonna
[2024-01-20 11:57] LABS: Glucose Point of Care 171 mg/dl (65-105)
--- NOTE | 2024-01-20 12:28 | PM.PNNEP ---
Progress Note: A&P Assessment and Plan (1) Acute kidney injury: Code(s): N17.9 - Acute kidney failure, unspecified Status: Acute Assessment and Plan: normal renal function/creatinine prior November 2023 hospitalization at [facility] and more recently (last creatinine was 1.08mg/dl on 01/04/2024) noted SAMANTHA/ARF in November 2023 hospital stay at [facility]: admission creatinine 0.92mg/dl peaked/platueaed at 3.03mg/dl insult thought to be multifactorial ATN from prerenal factors, contrast exposure, hypotension, and possibly vancomycin by time of discharge (12/05/23), creatinine was down to 2.55mg/dl subsequent outpatient labs done on 12/14/23 demonstrated at creatinine of 1.45mg/dl another episode of SAMANTHA/ARF during December 2023 admission here at [facility] admission creatinine at that time was 3.3mg/dl creatinine peaked at 6.7mg/dl extensive evaluation done during hospital stay....his recurrent bouts of SAMANTHA/ARF always seemed to follow his previous cycles of chemotherapy every 21 days, specifically the use of nivolumab and ipilimumab; upon further investigation, these medications have been associated with SAMANTHA/ARF for a variety of reasons including acute interstitial nephritis (did he have AIN on his previous hospitalization at [facility]?) empirically started on steroids given worsening rash on 12/21/23 renal scan showed poor uptake and also poor excretion - not consistent with ATN per se serological testing was negative creatinine on discharge was 1.4mg/dl creatinine on this admission was 1.6mg/dl with slow worsening noted etiology not clear; several possibilities including: prerenal factors hypotension possible infection (colitis + necrosis of melanoma mass) drug reaction/AIN (no recent chemotherapy but has been on antibiotics + rash) other(?) testing to date noted: normal renal ultrasound urine electrolytes non-prerenal urine eosinophils negative moderate proteinuria CPK low however, continues to make reasonable urine output trial of IVFs today follow trend of repeat labs and UOP (2) Sepsis: Qualifiers: Sepsis acute organ dysfunction status: unspecified Sepsis type: sepsis due to unspecified organism Qualified Code(s): A41.9 - Sepsis, unspecified organism Code(s): A41.9 - Sepsis, unspecified organism Status: Acute Assessment and Plan: presumed source due to C. diff colitis and possibly necrosis of left groin melanoma mass blood and urine cultures negative to date has not required vasopressor therapy bout on hypotension on 01/15 but responded to fluid boluses continue current therapy (3) C. difficile diarrhea: Code(s): A04.72 - Enterocolitis due to Clostridium difficile, not specified as recurrent Status: Acute Assessment and Plan: patient with loose stools on admission C. difficile toxin assay positive on Dificd follow diarrhea/bowel movements (4) Metastatic melanoma: Code(s): C43.9 - Malignant melanoma of skin, unspecified Status: Chronic Assessment and Plan: known diagnosis not currently on chemotherapy due to recurrent bouts of SAMANTHA/ARF in association with rash and elevated LFTs CT here with increase in size of the left inguinal mass, currently 12.2 cm which is up from the 8.[address] scans possible transfer to [facility] as to have planned surgery for left cystic inguinal node next week (5) Anemia: Code(s): D64.9 - Anemia, unspecified Status: Acute Assessment and Plan: s/p PRBC transfusion (on 01/15) for Hgb of 6.9 likely due to acute illness, CRYSTAL/ARF, and underlying malignancy follow trend of H/H (6) Metabolic acidosis: Code(s): E87.20 - Acidosis, unspecified Status: Acute Assessment and Plan: partly related to SAMANTHA along with GI losses (diarrhea) consider oral sodiuim bicarbonate if worsens
--- NOTE | 2024-01-20 12:28 | P.PNNP_ITS ---
Progress Note: A&P Assessment and Plan (1) Acute kidney injury: Code(s): N17.9 - Acute kidney failure, unspecified Status: Acute Assessment and Plan: * normal renal function/creatinine prior November 2023 hospitalization at [facility] and more recently (last creatinine was 1.08mg/dl on 01/04/2024) * noted SAMANTHA/ARF in November 2023 hospital stay at [facility]: * admission creatinine 0.92mg/dl * peaked/platueaed at 3.03mg/dl * insult thought to be multifactorial ATN from prerenal factors, contrast exposure, hypotension, and possibly vancomycin * by time of discharge (12/05/23), creatinine was down to 2.55mg/dl * subsequent outpatient labs done on 12/14/23 demonstrated at creatinine of 1.45mg/dl * another episode of SAMANTHA/ARF during December 2023 admission here at [facility] * admission creatinine at that time was 3.3mg/dl * creatinine peaked at 6.7mg/dl * extensive evaluation done during hospital stay....his recurrent bouts of SAMANTHA/ARF always seemed to follow his previous cycles of chemotherapy every 21 days, specifically the use of nivolumab and ipilimumab; upon further investigation, these medications have been associated with SAMANTHA/ARF for a variety of reasons including acute interstitial nephritis (did he have AIN on his previous hospitalization at [facility]?) * empirically started on steroids given worsening rash on 12/21/23 * renal scan showed poor uptake and also poor excretion - not consistent with ATN per se * serological testing was negative * creatinine on discharge was 1.4mg/dl * creatinine on this admission was 1.6mg/dl with slow worsening noted * etiology not clear; several possibilities including: * prerenal factors * hypotension * possible infection (colitis + necrosis of melanoma mass) * drug reaction/AIN (no recent chemotherapy but has been on antibiotics + rash) * other(?) * testing to date noted: * normal renal ultrasound * urine electrolytes non-prerenal * urine eosinophils negative * moderate proteinuria * CPK low * however, continues to make reasonable urine output * trial of IVFs today * follow trend of repeat labs and UOP (2) Sepsis: Qualifiers: Sepsis acute organ dysfunction status: unspecified Sepsis type: sepsis due to unspecified organism Qualified Code(s): A41.9 - Sepsis, unspecified organism Code(s): A41.9 - Sepsis, unspecified organism Status: Acute Assessment and Plan: * presumed source due to C. diff colitis and possibly necrosis of left groin melanoma mass * blood and urine cultures negative to date * has not required vasopressor therapy * bout on hypotension on 01/15 but responded to fluid boluses * continue current therapy (3) C. difficile diarrhea: Code(s): A04.72 - Enterocolitis due to Clostridium difficile, not specified as recurrent Status: Acute Assessment and Plan: * patient with loose stools on admission * C. difficile toxin assay positive * on Dificd * follow diarrhea/bowel movements (4) Metastatic melanoma: Code(s): C43.9 - Malignant melanoma of skin, unspecified Status: Chronic Assessment and Plan: * known diagnosis * not currently on chemotherapy due to recurrent bouts of SAMANTHA/ARF in association with rash and elevated LFTs * CT here with increase in size of the left inguinal mass, currently 12.2 cm which is up from the 8.[address] scans * possible transfer to [facility] as to have planned surgery for left cystic in
[2024-01-20] MEDS: SODIUM CHLORIDE 0.9% IV 500 ML 75 ML IV CONT (16:52)
[2024-01-20 16:58] LABS: Lactic Acid Reflex 1.1 mmol/L (0.7-2.0)
[2024-01-20 17:01] LABS: Glucose Point of Care 145 mg/dl (65-105)
[2024-01-20 17:02] LABS: CRP 5.8 mg/dL (<1.0)
[2024-01-20 18:00] LABS: Procalcitonin 1.7 ng/mL
[2024-01-20 20:03] LABS: Glucose Point of Care 244 mg/dl (65-105)
[2024-01-20] MEDS: FAMOTIDINE 20 MG TABLET PO (21:00)
[2024-01-20] MEDS: INSULIN ASPART (*BKC) 100 UNITS/ML SUB-Q (21:00)
[2024-01-21] VITALS (13 sets, daily range): BP systolic 106–131; BP diastolic 73–80; PULSE 83–105; RESP 20; TEMP 36.6–37.5; O2SAT 96–100
[2024-01-21] MEDS: LEVOTHYROXINE SODIUM 12.5 MCG TABLET PO (06:22)
[2024-01-21] MEDS: CENTRAL LINE FLUSH 10 ML IV PUSH ×2 (06:22→12:43)
[2024-01-21 06:51] LABS: Alanine Aminotransferase 150 U/L (6-50); Albumin Level 2.5 g/dL (3.5-5.1); Alkaline Phosphatase 751 U/L (38-126); Anion Gap 10 mmol/L (4-12); Aspartate Amino Transferase 76 U/L (17-59); Bilirubin,Total 0.9 mg/dL (0.2-1.3); Blood Urea Nitrogen 37 mg/dL (9-20); Carbon Dioxide 17 mmol/L (22-30); Chloride 106 mmol/L (98-107); Estimated CRCL calculation 31 ml/min; Estimated Glomerular Filt Rate 19; Glucose 150 mg/dL (65-110); Magnesium 2.2 mg/dL (1.6-2.3); Phosphorus 3.1 mg/dL (2.5-4.5); Potassium 3.6 mmol/L (3.4-5.0); Sodium 133 mmol/L (137-145)
[2024-01-21 06:54] LABS: Hematocrit 23.2 % (42.0-52.0); Hemoglobin 7.5 g/dL (14.0-18.0); Mean Corpuscular HGB Conc 32.3 g/dl (32-36); Mean Corpuscular Hemoglobin 29.3 pg (26-34); Mean Corpuscular Volume 90.6 fl (80-100); Mean Platelet Volume 8.9 fl (7.4-10.4); Platelet Count Result 214 k/mm3 (150-375); Red Blood Count 2.56 M/mm3 (4.6-6.20); Red Cell Distribution Width 17.3 % (11.5-14.5); White Blood Count 29.8 K/mm3 (4.5-10.0)
[2024-01-21 07:04] LABS: Glucose Point of Care 154 mg/dl (65-105)
[2024-01-21 07:24] LABS: Band Neutrophils Percent 3 % (0-6); Lymphocytes Absolute Manual 0.89 K/mm3 (1.1-4.5); Lymphocytes Percent Manual 3 % (18-44); Monocytes Absolute Manual 0.59 K/mm3 (0.1-0.90); Monocytes Percent Manual 2 % (3-9); Neutrophils Absolute Manual 27.41 K/mm3 (1.3-6.7); Neutrophils Percent Manual 89 % (46-73)
[2024-01-21 07:25] LABS: Eosinophils Absolute Manual 0.89 K/mm3 (0.02-0.50); Eosinophils Percent Manual 3 % (0-4); Platelet Estimate Adequate (Adequate); Schistocytes None Seen
[2024-01-21] MEDS: FIDAXOMICIN 200 MG TABLET PO (09:21)
[2024-01-21] MEDS: FAMOTIDINE 20 MG TABLET PO (09:21)
[2024-01-21] MEDS: MAGNESIUM OXIDE 400 MG TABLET PO (09:21)
--- NOTE | 2024-01-21 10:16 | P.PNNP_ITS ---
Progress Note: A&P Assessment and Plan (1) Acute kidney injury: Code(s): N17.9 - Acute kidney failure, unspecified Status: Acute Assessment and Plan: * normal renal function/creatinine prior November 2023 hospitalization at [facility] and more recently (last creatinine was 1.08mg/dl on 01/04/2024) * noted SAMANTHA/ARF in November 2023 hospital stay at [facility]: * admission creatinine 0.92mg/dl * peaked/platueaed at 3.03mg/dl * insult thought to be multifactorial ATN from prerenal factors, contrast exposure, hypotension, and possibly vancomycin * by time of discharge (12/05/23), creatinine was down to 2.55mg/dl * subsequent outpatient labs done on 12/14/23 demonstrated at creatinine of 1.45mg/dl * another episode of SAMATNHA/ARF during December 2023 admission here at [facility] * admission creatinine at that time was 3.3mg/dl * creatinine peaked at 6.7mg/dl * extensive evaluation done during hospital stay....his recurrent bouts of SAMANTHA/ARF always seemed to follow his previous cycles of chemotherapy every 21 days, specifically the use of nivolumab and ipilimumab; upon further investigation, these medications have been associated with SAMANTHA/ARF for a variety of reasons including acute interstitial nephritis (did he have AIN on his previous hospitalization at [facility]?) * empirically started on steroids given worsening rash on 12/21/23 * renal scan showed poor uptake and also poor excretion - not consistent with ATN per se * serological testing was negative * creatinine on discharge was 1.4mg/dl * creatinine on this admission was 1.6mg/dl with slow worsening noted * etiology not clear; several possibilities including: * prerenal factors * hypotension * possible infection (colitis + necrosis of melanoma mass) * drug reaction/AIN (no recent chemotherapy but has been on antibiotics + rash) * other(?) * testing to date noted: * normal renal ultrasound * urine electrolytes non-prerenal * urine eosinophils negative * moderate proteinuria * CPK low * however, continues to make reasonable urine output * follow trend of repeat labs and UOP (2) Sepsis: Qualifiers: Sepsis acute organ dysfunction status: unspecified Sepsis type: sepsis due to unspecified organism Qualified Code(s): A41.9 - Sepsis, unspecified organism Code(s): A41.9 - Sepsis, unspecified organism Status: Acute Assessment and Plan: * presumed source due to C. diff colitis and possibly necrosis of left groin melanoma mass * blood and urine cultures negative to date * has not required vasopressor therapy * bout on hypotension on 01/15 but responded to fluid boluses * continue current therapy (3) C. difficile diarrhea: Code(s): A04.72 - Enterocolitis due to Clostridium difficile, not specified as recurrent Status: Acute Assessment and Plan: * patient with loose stools on admission * C. difficile toxin assay positive * on Dificd * follow diarrhea/bowel movements (4) Metastatic melanoma: Code(s): C43.9 - Malignant melanoma of skin, unspecified Status: Chronic Assessment and Plan: * known diagnosis * not currently on chemotherapy due to recurrent bouts of SAMANTHA/ARF in association with rash and elevated LFTs * CT here with increase in size of the left inguinal mass, currently 12.2 cm which is up from the 8.[address] scans * possible transfer to [facility] as to have planned surgery for left cystic inguinal node next week
[2024-01-21 12:30] LABS: Glucose Point of Care 212 mg/dl (65-105)
[2024-01-21] MEDS: INSULIN ASPART (*BKC) 100 UNITS/ML SUB-Q (12:41)
[2024-01-21 16:25] LABS: Glucose Point of Care 122 mg/dl (65-105)
--- NOTE | 2024-01-21 17:16 | PC.NURSE ---
Pt transferred to [facility] room 3621 Bed 1 via [facility]. Family at bedside and aware of transfer. [id number] and needle remains in place at time of transfer.
--- NOTE | 2024-01-21 18:09 | PM.TDS ---
Transfer Discharge Sum: Prov Provider Date of admission: 01/17/24 10:54 Primary care physician: Leobardo Fox MD Admitting clinician: Shabnam Nina MD Consults: 01/16/24 Consult to Physician Routine Comment: Consulting Provider: Alfa Watts bilingual call center representative/MD group to consult: Oncology Reason for consultation: Melanoma with metastatic disease Has provider been notified: Yes 01/17/24 Consult to Physician Routine Comment: called office with consult information Consulting Provider: Yomi Gutierrez bilingual call center representative/MD group to consult: General surgery Reason for consultation: L groin necrotic mass Has provider been notified: Yes 01/19/24 08:27 Consult to Physician Routine Comment: Spoke with the Dr and notified him of consult Consulting Provider: Jacinta Arevalo bilingual call center representative/MD group to consult: nephrology Reason for consultation: SAMANTHA/CKD Has provider been notified: Yes Receiving physician/facility: [facility] DS: Admitting Diagnosis Discharge Date 01/21/24 Admitting Diagnosis Fever DS: Discharge Diagnosis Discharge Diagnosis (1) Acute kidney injury: Code(s): N17.9 - Acute kidney failure, unspecified Status: Acute (2) Sepsis: Qualifiers: Sepsis acute organ dysfunction status: unspecified Sepsis type: sepsis due to unspecified organism Qualified Code(s): A41.9 - Sepsis, unspecified organism Code(s): A41.9 - Sepsis, unspecified organism Status: Acute (3) Anemia: Code(s): D64.9 - Anemia, unspecified Status: Acute (4) 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 difficile diarrhea: Code(s): A04.72 - Enterocolitis due to Clostridium difficile, not specified as recurrent Status: Acute (7) CKD (chronic kidney disease): Code(s): N18.9 - Chronic kidney disease, unspecified Status: Inactive Transfer Discharge Sum: Med Medications Active and Home Medications: Home Medications levothyroxine 25 mcg tablet 12.5 mcg PO DAILY #30 tabs 12/26/23 [Rx Confirmed 01/16/24] magnesium oxide 400 mg (241.3 mg magnesium) tablet 400 mg PO Q12HR #60 tabs 12/26/23 [Rx Confirmed 01/16/24] insulin glargine 100 unit/mL (3 mL) subcutaneous pen (Lantus Solostar U-100 Insulin) 15 unit subcut DAILY 01/16/24 [History Confirmed 01/16/24] Transfer Discharge Sum: Hosp Hospital Course Hospital course: Zeke Latif is a 53yo male with metastatic melanoma who presented to the hospital with fever. Please see H&P for details. The following issues were addressed: (1) Acute kidney injury: Patient developed acute kidney injury recently on last admission. On 12/25 at the time of discharge patient creatinine was 3.3 Cr continued to improve to 1.4 on 01/10 and was closer to 1.0 at an outside hospital around this time IV contrast exposure on 01/14; he was on Bactrim until 01/16. Was HoTN on evening 01/15. He received Lasix 20mg IV once after blood transfusion 01/17. Patient has received adequate amount IV fluids and was given 25% albumin to maintain mean arterial pressure Creatinine was 1.6 on admission and has climbed to 3.5 likely secondary to sepsis vs HoTN vs drug rxn Potassium 3.7 and serum bicarb 18. UOP 1350 -> 2100 -> 1400 -> 1825mL so far today Renal US showing normal kidneys. PVR about 0mL. Urine Eos negative. TCK negative. Urine labs not prerenal. Prot/Cr 2.29g Off abx for 2 days now (patient refusing with last doses on 01/17) Nephrology consulted. We held abx since patient refusing and to assess renal function off abx. (2) Sepsis: Sepsis secondary to C diff, PNA, melanoma and/or necrosis of metastatic melanoma mass which could be infected Consider also related to reaction to his chemo treatment but last cycle wa
== END 2024-01-21 17:16 | disposition short-term general hospital (02) | DRG 871 ==
LOC: ANHED 22:48 → ANH2MED 01-16 02:32 → ANHICU 01-17 01:27 → ANHIMU 01-17 18:12
PROVIDERS: Internal Medicine Hematology & Oncology; Internal Medicine Nephrology; Nurse Practitioner Acute Care; Admitting Provider Internal Medicine; Emergency Provider Student in an Organized Health Care Education/Training Program; PCP Emergency Medicine; Visit Provider Internal Medicine
DX: A41.9 Sepsis, unspecified organism (principal); J18.9 Pneumonia, unspecified organism; A04.72 Enterocolitis due to Clostridium difficile, not specified as recurrent; C77.4 Secondary and unspecified malignant neoplasm of inguinal and lower limb lymph nodes; N17.9 Acute kidney failure, unspecified; E11.22 Type 2 diabetes mellitus with diabetic chronic kidney disease; N18.9 Chronic kidney disease, unspecified; G47.33 Obstructive sleep apnea (adult) (pediatric); D63.0 Anemia in neoplastic disease; Z85.820 Personal history of malignant melanoma of skin; Z79.4 Long term (current) use of insulin
CPT/HCPCS: 36415; 36430; 71045; 71046; 71250; 74176; 74177; 76775; 80048; 80053; 81001; 81050; 82533; 82550; 82570; 82607; 82728; 82746; 82948; 83540; 83550; 83605; 83615; 83735; 83880; 84100; 84145; 84156; 84300; 84540; 85025; 85610; 85652; 85730; 85999; 86140; 86703; 86850; 86900; 86901; 86923; 87040; 87045; 87086; 87427; 87449; 87493; 87637; 93005; 93306; 93970; 96361; 96365; 96375; 96376; 99285; A9270; G0378; G0432; J0613; J0692; J0780; J1100; J1200; J1642; J1652; J1815; J1940; J2020; J2185; J2405; J3475; J7030; J7040; J7050; J7120; P9016; P9047; Q9967